=== PATIENT | female | born 1995 | race Caucasian/White ===

== ENCOUNTER 2021-03-07 22:15 | Inpatient (IN) | payer MEDICAID, SELFPAY ==
--- NOTE | 2021-03-07 22:15 | ED_ITS ---
Documented by User: Enrique Thomas MD 03/11/21 21:27 HPI - Altered Mental Status General: Chief Complaint: Altered Mental Status Stated Complaint: possible overdose Time Seen by Provider: 03/07/21 22:15 Source: patient and EMS Mode of arrival: EMS Limitations: altered mental status History of Present Illness: HPI narrative: Ms. Matos is a 25-year-old lady with unclear past medical history who presents to the emergency department due to altered mental status. Per EMS report she was found confused in a bathroom and somewhat combative. EMS gave her 5 mg Haldol and 4 mg of Zofran. Upon initial evaluation the patient is oriented x2 however provides little meaningful history. She cannot explain the current events and believes that it is still Thanksgiving. She does endorse mild abdominal pain. She has scattered abrasions and contusions which she does not explain. History is otherwise limited by patient's mental status. Review of Systems General: Reports: ROS unobtainable due to mental status [facility] ED PFSH: Social History (Updated 03/08/21 @ 06:38 by David Aldana MD) Smoking and tobacco status: unknown if ever smoked Alcohol intake: unknown Physical Exam Narrative: EXAM NARRATIVE: GENERAL/CONSTITUTIONAL -mildly ill appearing. No acute distress. Eyes - PERRL, no conjunctival injection ENMT - Atraumatic external nose and ears. Moist mucous membranes NECK - supple. trachea midline CARDIOVASCULAR - regular rate and rhythm. No active bleeding. RESPIRATORY -clear to auscultation bilaterally. ABDOMEN/GI -mild tenderness to palpation generalized, nondistended, no evidence of peritonitis. MSK - Extremities without obvious deformity or tenderness to palpation SKIN - Warm, Dry. Scattered contusions and abrasions NEURO - alert and oriented x2. No obvious focal neurologic deficits. PSYCH -impaired cognition and memory. Impaired attention. Course ED course: - Patient was seen and evaluated by me at bedside - Patient placed on cardiac monitors, IV access obtained - Initial evaluation notable for altered mental status and limited history. Patient can answer orientation question's but otherwise lacks capacity and ability to have meaningful discussion regarding clinical presentation - Labs notable for leukocytosis of unclear etiology. Metabolic panel with hypokalemia, replenishment ordered, decreased bicarb, increased anion gap. - Imaging notable for negative head CT. No lobar consolidation or evidence of pneumonia. - Patient care handed off to overnight ED physician Dr. Wright pending completion of urinalysis and screening for toxic ingestions as well as reassessment of patient's condition. Vital Signs: Vital signs: Vital Signs Temperature 98.8 F 03/11/21 14:00 Pulse Rate 108 H 03/11/21 14:00 Respiratory Rate 16 03/11/21 14:00 Blood Pressure 143/91 03/11/21 14:00 Pulse Oximetry 97 03/11/21 14:00 MDM - Altered Mental Status Medical Records: Attestation: I reviewed the patient's medical records. Lab Data: Attestation: I reviewed the patient's lab results. Labs: Lab Results 03/07/21 03/07/21 03/07/21 22:23 22:28 22:28 WBC 17.3 10^3/uL H 10 ^3/uL (4.0-10.0) RBC 5.01 10^6/uL 10^6 /uL (4.1-5.3) Hgb 15.4 g/dL H g/dL (11.5-15.3) Hct 45.7 % % (37.0-47.0) MCV 91.2 fl fl (81-99) MCH 30.7 pg pg (28.0-34.0) MCHC 33.7 g/dL g/dL (30.0-36.0) RDW 12.3 % % (12.1-15.1) Plt Count 302 10^3/cmm 10^3 /cmm (130-400) MPV 9.9 fL fL (7.4-10.4) Neut % (Auto) 79.3 % % Lymph % (Auto) 12.6 % % Nuckolls % (Auto) 7.2 % % Eos % (Auto) 0.1 % % Baso % (Auto) 0.5 % % Neut # (Auto) 13.70 10^3/uL H 1 0^3/uL (1.8-7.7) Lymph # (Auto) 2.2 10^3/uL 10^3/ uL (0.8-4.8) Nuckolls # (Auto) 1.3 10^3/uL H 10^ 3/uL (0.2-0.9) Eos # (Auto) 0.0 10^3/uL 10^3/ uL (0.0-0.8) Baso # (Auto) 0.1 10^3/uL 10^3/ uL (0.0-0.1) Nucleated RBC % (a uto) 0 % % Nucleated RBCs # 0.0 /100WBC /100W BC Specimen Type Arterial Sample Site Radial, right ABG pH 7.42 (7.35-7.45) ABG pCO2 32.8 mmHg L mmHg (35-45) ABG pO2 102.0 mmHg H mmHg (80.0-100.0) ABG HCO3 21.3 mmol/L L mmo l/L (22-26) ABG Base Excess -2.3 mmol/L L mmo l/L (-2.0-2.0) Anthony Test Pos Hematocrit 47.6 % H % (37-47) O2 Delivery Device Room air Budget And Policy Analyst ID [id number] Sodium 139 mmol/L mmol/L (136-145) Potassium 3.1 mmol/L L mmol /L (3.5-5.1) Chloride 102 mmol/L mmol/L (98-107) Carbon Dioxide 17 mmol/L L mmol/ L (22-29) Anion Gap 23.1 H (5-19) BUN 6 mg/dL mg/dL (6-20) Creatinine 0.5 mg/dL mg/dL (0.5-0.9) GFR Calculation 152.9 mL/min H mL /min (90-130) Glucose 99 mg/dL mg/dL (65-115) POC Glucose Calculated Osmolal ity 286 mOsm/kg mOsm/ kg (285-295) Calcium 9.2 mg/dL mg/dL (8.5-10.5) Magnesium Total Bilirubin 0.8 mg/dL mg/dL (0.15-1.2) AST 16 U/L U/L (0-32) ALT 13 U/L U/L (0-33) Alkaline Phosphata se 81 IU/L IU/L (35-105) Total Protein 6.7 g/dL g/dL (6.6-8.7) Albumin 4.8 g/dL g/dL (3.5-5.2) Globulin 1.9 g/dL g/dL (1.3-4.6) Lipase 9 U/L L U/L (13-60) TSH 2.64 uIU/mL uIU/m L (0.27-4.20) HCG, Qual Urine Color Urine Appearance Urine pH Ur Specific Gravit y Urine Protein Urine Glucose (UA) Urine Ketones Urine Blood Urine Nitrate Urine Bilirubin Prot Sulfosalicyli c Acd Urine Urobilinogen Ur Leukocyte Isadora ase Salicylates < 0.3 mg/dL L mg/ dL (3-10) Urine Opiates Scre en Acetaminophen < 5.0 ug/mL L ug/ mL (10-30) Ur Barbiturates Sc reen Ur Phencyclidine S crn Ur Amphetamines Sc reen U Benzodiazepines Scrn Urine Cocaine Scre en U Marijuana (THC) Screen Ethylene Glycol Ethyl Alcohol < 10 mg/dL mg/dL (0-10) 03/07/21 03/07/21 03/07/21 22:28 22:28 22:28 WBC RBC Hgb Hct MCV MCH MCHC RDW Plt Count MPV Neut % (Auto) Lymph % (Auto) Nuckolls % (Auto) Eos % (Auto) Baso % (Auto) Neut # (Auto) Lymph # (Auto) Nuckolls # (Auto) Eos # (Auto) Baso # (Auto) Nucleated RBC % (a uto) Nucleated RBCs # Specimen Type Sample Site ABG pH ABG pCO2 ABG pO2 ABG HCO3 ABG Base Excess Anthony Test Hematocrit O2 Delivery Device Budget And Policy Analyst ID Sodium Potassium Chloride Carbon Dioxide Anion Gap BUN Creatinine GFR Calculation Glucose POC Glucose Calculated Osmolal ity Calcium Magnesium 1.9 mg/dL mg/dL (1.7-2.3) Total Bilirubin AST ALT Alkaline Phosphata se Total Protein Albumin Globulin Lipase TSH HCG, Qual Negative (Negative) Urine Color Urine Appearance Urine pH Ur Specific Gravit y Urine Protein Urine Glucose (UA) Urine Ketones Urine Blood Urine Nitrate Urine Bilirubin Prot Sulfosalicyli c Acd Urine Urobilinogen Ur Leukocyte Isadora ase Salicylates Urine Opiates Scre en Acetaminophen Ur Barbiturates Sc reen Ur Phencyclidine S crn Ur Amphetamines Sc reen U Benzodiazepines Scrn Urine Cocaine Scre en U Marijuana (THC) Screen Ethylene Glycol <10.0 mg/L mg/L () Ethyl Alcohol 03/07/21 03/07/21 03/07/21 23:46 23:46 23:55 WBC RBC Hgb Hct MCV MCH MCHC RDW Plt Count MPV Neut % (Auto) Lymph % (Auto) Nuckolls % (Auto) Eos % (Auto) Baso % (Auto) Neut # (Auto) Lymph # (Auto) Nuckolls # (Auto) Eos # (Auto) Baso # (Auto) Nucleated RBC % (a uto) Nucleated RBCs # Specimen Type Sample Site ABG pH ABG pCO2 ABG pO2 ABG HCO3 ABG Base Excess Anthony Test Hematocrit O2 Delivery Device Budget And Policy Analyst ID Sodium Potassium Chloride Carbon Dioxide Anion Gap BUN Creatinine GFR Calculation Glucose POC Glucose 76 mg/dL mg/dL (70-110) Calculated Osmolal ity Calcium Magnesium Total Bilirubin AST ALT Alkaline Phosphata se Total Protein Albumin Globulin Lipase TSH HCG, Qual Urine Color Cancelled Urine Appearance Cancelled Urine pH Cancelled Ur Specific Gravit y Cancelled Urine Protein Cancelled Urine Glucose (UA) Cancelled Urine Ketones Cancelled Urine Blood Cancelled Urine Nitrate Cancelled Urine Bilirubin Cancelled Prot Sulfosalicyli c Acd Cancelled Urine Urobilinogen Cancelled Ur Leukocyte Isadora ase Cancelled Salicylates Urine Opiates Scre en Negative ng/mL ng /mL (Negative) Acetaminophen Ur Barbiturates Sc reen Negative ng/mL ng /mL (Negative) Ur Phencyclidine S crn Negative ng/mL ng /mL (Negative) Ur Amphetamines Sc reen Negative ng/mL ng /mL (Negative) U Benzodiazepines Scrn Negative ng/mL ng /mL (Negative) Urine Cocaine Scre en Negative ng/mL ng /mL (Negative) U Marijuana (THC) Screen Positive ng/mL H ng/mL (Negative) Ethylene Glycol Ethyl Alcohol EKG Data^: EKG 1: Attestation: I personally reviewed and interpreted this EKG as follows: EKG interpretation date: 03/07/21 EKG interpretation time: 22:57 Interpretation: Twelve-lead EKG shows a regular rhythm at a rate of 74. TN interval 118, QRS duration 89, QTc 426. Normal axis. Interpretation: Sinus rhythm. Short TN interval. Discharge Plan Discharge Patient Disposition: Admitted As Inpatient Admit Provider: David Aldana Clinical Impression: Acute psychosis Altered mental status Qualifiers: Altered mental status type: delirium Qualified Code(s): R41.0 - Disorientation, unspecified Condition: Fair Coding Level of Care Code ED Furniture Restorer for Chg Fwd Documented by User: Jonas Wright, DO 03/08/21 03:56 HPI - Altered Mental Status General: Chief Complaint: Altered Mental Status Stated Complaint: possible overdose Time Seen by Provider: 03/07/21 22:15 PFSH ED PFSH: Social History (Updated 03/08/21 @ 06:38 by David Aldana MD) Smoking and tobacco status: unknown if ever smoked Alcohol intake: unknown Course Consultations: Consultation #1: Katya Time: 03:05 Vital Signs: Vital signs: Vital Signs Temperature 98.8 F 03/11/21 14:00 Pulse Rate 108 H 03/11/21 14:00 Respiratory Rate 16 03/11/21 14:00 Blood Pressure 143/91 03/11/21 14:00 Pulse Oximetry 97 03/11/21 14:00 MDM - Altered Mental Status MDM Narrative: Medical decision making narrative: 25-year-old female checked out to me by the previous physician at shift change. This young lady may or may not have ingested a substance. She has mental status changes, which is rather obvious. I have examined this lady as well. She is sleepy, but arouses to voice. She answers some questions appropriately, but not others. For example she knows she is in the hospital, and what town she is in, but answers the word blue when asked what day it is. When asked if this has ever happened to her before, she states yes, a month or? . I do not believe this lady has attempted suicide in any way, and she denies suicidal ideation, but I do feel that she is medically unstable to go home at this point. She has been given a fluid bolus, potassium repleted for a potassium of 3.1. Her white blood cell count is 17.3, but without significant left shift. Her head CT is normal. Chest x-ray is normal. She is currently afebrile. She does not show any meningeal signs whatsoever. Spoke with hospitalist, who agrees to come see the patient in the emergency room. She is observed to be actively hallucinating in the room interacting with individuals who are not present. She is exhibiting signs of acute psychosis. She is given IV haloperidol for this. As she is currently medically/psychiatrically unstable to go home, and care for herself, she will be placed under 96-hour hold. Lab Data: Labs: Lab Results 03/07/21 03/07/21 03/07/21 22:23 22:28 22:28 WBC 17.3 10^3/uL H 10 ^3/uL (4.0-10.0) RBC 5.01 10^6/uL 10^6 /uL (4.1-5.3) Hgb 15.4 g/dL H g/dL (11.5-15.3) Hct 45.7 % % (37.0-47.0) MCV 91.2 fl fl (81-99) MCH 30.7 pg pg (28.0-34.0) MCHC 33.7 g/dL g/dL (30.0-36.0) RDW 12.3 % % (12.1-15.1) Plt Count 302 10^3/cmm 10^3 /cmm (130-400) MPV 9.9 fL fL (7.4-10.4) Neut % (Auto) 79.3 % % Lymph % (Auto) 12.6 % % Nuckolls % (Auto) 7.2 % % Eos % (Auto) 0.1 % % Baso % (Auto) 0.5 % % Neut # (Auto) 13.70 10^3/uL H 1 0^3/uL (1.8-7.7) Lymph # (Auto) 2.2 10^3/uL 10^3/ uL (0.8-4.8) Nuckolls # (Auto) 1.3 10^3/uL H 10^ 3/uL (0.2-0.9) Eos # (Auto) 0.0 10^3/uL 10^3/ uL (0.0-0.8) Baso # (Auto) 0.1 10^3/uL 10^3/ uL (0.0-0.1) Nucleated RBC % (a uto) 0 % % Nucleated RBCs # 0.0 /100WBC /100W BC Specimen Type Arterial Sample Site Radial, right ABG pH 7.42 (7.35-7.45) ABG pCO2 32.8 mmHg L mmHg (35-45) ABG pO2 102.0 mmHg H mmHg (80.0-100.0) ABG HCO3 21.3 mmol/L L mmo l/L (22-26) ABG Base Excess -2.3 mmol/L L mmo l/L (-2.0-2.0) Anthony Test Pos Hematocrit 47.6 % H % (37-47) O2 Delivery Device Room air Budget And Policy Analyst ID [id number] Sodium 139 mmol/L mmol/L (136-145) Potassium 3.1 mmol/L L mmol /L (3.5-5.1) Chloride 102 mmol/L mmol/L (98-107) Carbon Dioxide 17 mmol/L L mmol/ L (22-29) Anion Gap 23.1 H (5-19) BUN 6 mg/dL mg/dL (6-20) Creatinine 0.5 mg/dL mg/dL (0.5-0.9) GFR Calculation 152.9 mL/min H mL /min (90-130) Glucose 99 mg/dL mg/dL (65-115) POC Glucose Calculated Osmolal ity 286 mOsm/kg mOsm/ kg (285-295) Calcium 9.2 mg/dL mg/dL (8.5-10.5) Magnesium Total Bilirubin 0.8 mg/dL mg/dL (0.15-1.2) AST 16 U/L U/L (0-32) ALT 13 U/L U/L (0-33) Alkaline Phosphata se 81 IU/L IU/L (35-105) Total Protein 6.7 g/dL g/dL (6.6-8.7) Albumin 4.8 g/dL g/dL (3.5-5.2) Globulin 1.9 g/dL g/dL (1.3-4.6) Lipase 9 U/L L U/L (13-60) TSH 2.64 uIU/mL uIU/m L (0.27-4.20) HCG, Qual Urine Color Urine Appearance Urine pH Ur Specific Gravit y Urine Protein Urine Glucose (UA) Urine Ketones Urine Blood Urine Nitrate Urine Bilirubin Prot Sulfosalicyli c Acd Urine Urobilinogen Ur Leukocyte Isadora ase Salicylates < 0.3 mg/dL L mg/ dL (3-10) Urine Opiates Scre en Acetaminophen < 5.0 ug/mL L ug/ mL (10-30) Ur Barbiturates Sc reen Ur Phencyclidine S crn Ur Amphetamines Sc reen U Benzodiazepines Scrn Urine Cocaine Scre en U Marijuana (THC) Screen Ethylene Glycol Ethyl Alcohol < 10 mg/dL mg/dL (0-10) 03/07/21 03/07/21 03/07/21 22:28 22:28 22:28 WBC RBC Hgb Hct MCV MCH MCHC RDW Plt Count MPV Neut % (Auto) Lymph % (Auto) Nuckolls % (Auto) Eos % (Auto) Baso % (Auto) Neut # (Auto) Lymph # (Auto) Nuckolls # (Auto) Eos # (Auto) Baso # (Auto) Nucleated RBC % (a uto) Nucleated RBCs # Specimen Type Sample Site ABG pH ABG pCO2 ABG pO2 ABG HCO3 ABG Base Excess Anthony Test Hematocrit O2 Delivery Device Budget And Policy Analyst ID Sodium Potassium Chloride Carbon Dioxide Anion Gap BUN Creatinine GFR Calculation Glucose POC Glucose Calculated Osmolal ity Calcium Magnesium 1.9 mg/dL mg/dL (1.7-2.3) Total Bilirubin AST ALT Alkaline Phosphata se Total Protein Albumin Globulin Lipase TSH HCG, Qual Negative (Negative) Urine Color Urine Appearance Urine pH Ur Specific Gravit y Urine Protein Urine Glucose (UA) Urine Ketones Urine Blood Urine Nitrate Urine Bilirubin Prot Sulfosalicyli c Acd Urine Urobilinogen Ur Leukocyte Isadora ase Salicylates Urine Opiates Scre en Acetaminophen Ur Barbiturates Sc reen Ur Phencyclidine S crn Ur Amphetamines Sc reen U Benzodiazepines Scrn Urine Cocaine Scre en U Marijuana (THC) Screen Ethylene Glycol <10.0 mg/L mg/L () Ethyl Alcohol 03/07/21 03/07/21 03/07/21 23:46 23:46 23:55 WBC RBC Hgb Hct MCV MCH MCHC RDW Plt Count MPV Neut % (Auto) Lymph % (Auto) Nuckolls % (Auto) Eos % (Auto) Baso % (Auto) Neut # (Auto) Lymph # (Auto) Nuckolls # (Auto) Eos # (Auto) Baso # (Auto) Nucleated RBC % (a uto) Nucleated RBCs # Specimen Type Sample Site ABG pH ABG pCO2 ABG pO2 ABG HCO3 ABG Base Excess Anthony Test Hematocrit O2 Delivery Device Budget And Policy Analyst ID Sodium Potassium Chloride Carbon Dioxide Anion Gap BUN Creatinine GFR Calculation Glucose POC Glucose 76 mg/dL mg/dL (70-110) Calculated Osmolal ity Calcium Magnesium Total Bilirubin AST ALT Alkaline Phosphata se Total Protein Albumin Globulin Lipase TSH HCG, Qual Urine Color Cancelled Urine Appearance Cancelled Urine pH Cancelled Ur Specific Gravit y Cancelled Urine Protein Cancelled Urine Glucose (UA) Cancelled Urine Ketones Cancelled Urine Blood Cancelled Urine Nitrate Cancelled Urine Bilirubin Cancelled Prot Sulfosalicyli c Acd Cancelled Urine Urobilinogen Cancelled Ur Leukocyte Isadora ase Cancelled Salicylates Urine Opiates Scre en Negative ng/mL ng /mL (Negative) Acetaminophen Ur Barbiturates Sc reen Negative ng/mL ng /mL (Negative) Ur Phencyclidine S crn Negative ng/mL ng /mL (Negative) Ur Amphetamines Sc reen Negative ng/mL ng /mL (Negative) U Benzodiazepines Scrn Negative ng/mL ng /mL (Negative) Urine Cocaine Scre en Negative ng/mL ng /mL (Negative) U Marijuana (THC) Screen Positive ng/mL H ng/mL (Negative) Ethylene Glycol Ethyl Alcohol Discharge Plan Discharge Patient Disposition: Admitted As Inpatient Admit Provider: David Aldana Clinical Impression: Acute psychosis Altered mental status Qualifiers: Altered mental status type: delirium Qualified Code(s): R41.0 - Disorientation, unspecified Condition: Fair Coding Level of Care Code ED Furniture Restorer for Jamel Wilson
[2021-03-07 22:18] VITALS: BP 112/73; PULSE 88; RESP 18; TEMP 37.2; O2SAT 97; BMI 34.9
--- NOTE | 2021-03-07 22:21 | XRR_ITS ---
PROCEDURE INFORMATION: Exam: XR Chest Exam date and time: 03/07/2021 10:21 PM Age: 25 years old Clinical indication: Other: AMS TECHNIQUE: Imaging protocol: XR of the chest. Views: 1 view. COMPARISON: No relevant prior studies available. FINDINGS: Lungs: Unremarkable. No consolidation. Pleural spaces: Unremarkable. No pleural effusion. No pneumothorax. Heart/Mediastinum: Unremarkable. No cardiomegaly. Bones/joints: Unremarkable. XR/XR chest 1V portable [id number] IMPRESSION: No acute findings. Radiation Dose CTDIVOL = (mGy): DLP = (mGy-cm)
--- NOTE | 2021-03-07 22:21 | ECG_ITS ---
[facility] Test Date: 2021-03-07 Pat Name: Cathy Liu Department: Room: Gender: Female Corn Press Operator: : 1995 Requested By: Enrique Thomas Order Number: [id number] Thom MD: LUCINA CAMPBELL Measurements Intervals Lott Rate: 74 P: 64 SD: 118 QRS: 73 QRSD: 89 T: 49 QT: 399 QTc: 444 Interpretive Statements SINUS RHYTHM WITH MARKED SINUS ARRHYTHMIA WITH SHORT SD INTERVAL No previous ECG available for comparison Electronically Signed On 03-10-2021 13:01:53 CHIEF MARKETING OFFICER by LUCINA CAMPBELL [id number]
--- NOTE | 2021-03-07 22:21 | CTR_ITS ---
PROCEDURE INFORMATION: Exam: CT Head Without Contrast Exam date and time: 03/07/2021 10:21 PM Age: 25 years old Clinical indication: Altered mental status/memory loss; Additional info: AMS TECHNIQUE: Imaging protocol: Computed tomography of the head without contrast. Radiation optimization: All CT scans at this facility use at least one of these dose optimization techniques: automated exposure control; mA and/or kV adjustment per patient size (includes targeted exams where dose is matched to clinical indication); or iterative reconstruction. COMPARISON: No relevant prior studies available. RADIATION DOSE METRICS: Total DLP (mGy-cm): 872.99 FINDINGS: Brain: Normal. No hemorrhage. Unremarkable white matter. No mass effect. Cerebral ventricles: No ventriculomegaly. Paranasal sinuses: Visualized sinuses are unremarkable. No fluid levels. Mastoid air cells: Visualized mastoid air cells are well aerated. Bones/joints: Unremarkable. No acute fracture. Soft tissues: Unremarkable. CT/CT head wo con* [id number] IMPRESSION: No acute intracranial abnormality. Radiation Dose CTDIVOL = (mGy): DLP = 872.99 (mGy-cm)
[2021-03-07] MEDS: sodium chloride 0.9% 1,000 ML 999 ML IV (22:27)
[2021-03-07 22:46] LABS: Basophils # 0.1 10^3/uL (0.0-0.1); Basophils % 0.5 %; Eosinophils % 0.1 %; Hematocrit 45.7 % (37.0-47.0); Hemoglobin 15.4 g/dL (11.5-15.3); Lymphocytes # 2.2 10^3/uL (0.8-4.8); Lymphocytes % 12.6 %; Mean Corpuscular HGB Conc 33.7 g/dL (30.0-36.0); Mean Corpuscular Hemoglobin 30.7 pg (28.0-34.0); Mean Corpuscular Volume 91.2 fl (81-99); Mean Platelet Volume 9.9 fL (7.4-10.4); Monocytes # 1.3 10^3/uL (0.2-0.9); Monocytes % 7.2 %; Neutrophils % 79.3 %; Nucleated Red Blood Cells % 0 %; Platelet Count 302 10^3/cmm (130-400); Red Blood Count 5.01 10^6/uL (4.1-5.3); Red Cell Distribution Width 12.3 % (12.1-15.1); White Blood Count 17.3 10^3/uL (4.0-10.0)
[2021-03-07 22:48] LABS: ABG PCO2 32.8 mmHg (35-45); ABG PH Result 7.42 (7.35-7.45); Arterial Blood Gas Hematocrit 47.6 % (37-47); Base Excess ABG -2.3 mmol/L (-2.0-2.0); Blood Gas Allen Test Pos; Blood Gas Sample Site Radial, right; Blood Gas Sample Type Arterial; HCO3 ABG 21.3 mmol/L (22-26); Oxygen Device ROOM AIR
[2021-03-07 22:53] LABS: HCG, Serum Qual Negative (Negative)
[2021-03-07 23:11] LABS: Alanine Aminotransferase 13 U/L (0-33); Albumin Level 4.8 g/dL (3.5-5.2); Alkaline Phosphatase 81 IU/L (35-105); Anion Gap 23.1 (5-19); Aspartate Amino Transferase 16 U/L (0-32); Blood Urea Nitrogen 6 mg/dL (6-20); Calcium 9.2 mg/dL (8.5-10.5); Carbon Dioxide 17 mmol/L (22-29); Chloride 102 mmol/L (98-107); Globulin 1.9 g/dL (1.3-4.6); Glomerular Filtration Rate 152.9 mL/min (90-130); Glucose 99 mg/dL (65-115); Lipase 9 U/L (13-60); Osmolality Calculated 286 mOsm/kg (285-295); Potassium 3.1 mmol/L (3.5-5.1); Sodium 139 mmol/L (136-145); Thyroid Stimulating Hormone 2.64 uIU/mL (0.27-4.20); Total Bilirubin 0.8 mg/dL (0.15-1.2); Total Protein 6.7 g/dL (6.6-8.7)
[2021-03-07 23:12] LABS: Acetaminophen < 5.0 ug/mL (10-30); Alcohol Level < 10 mg/dL (0-10); Salicylate < 0.3 mg/dL (3-10)
[2021-03-07] MEDS: magnesium sulfate premix 2 GM/50 ML PIGGYBACK IV (23:38)
[2021-03-07 23:48] LABS: Magnesium 1.9 mg/dL (1.7-2.3)
[2021-03-07 23:58] LABS: Glucose Point of Care 76 mg/dL (70-110)
[2021-03-08] VITALS (107 sets, daily range): BP systolic 83–168; BP diastolic 58–110; PULSE 70–148; RESP 13–31; TEMP 36.8–37.1; O2SAT 94–100
[2021-03-08 00:09] LABS: Amphetamines Screen Urine Negative (Negative); Barbiturates Screen Urine Negative (Negative); Benzodiazepines Screen Urine Negative (Negative); Cocaine Screen Urine Negative (Negative); Opiate Screen Urine Negative (Negative); PCP Screen Urine Negative (Negative); THC Screen Urine Positive (Negative)
[2021-03-08] MEDS: sodium chloride 0.9% 1,000 ML 999 ML IV (00:28)
--- NOTE | 2021-03-08 00:41 | PC.NURSE ---
Pt. states that she wants to go home. Pt is resting in bed getting IV fluids at this time. Pt. states that she will stay long enough to finish her IV fluids.
[2021-03-08] MEDS: potassium chloride ER 20 mEq Tablet 40 MEQ PO (00:56)
--- NOTE | 2021-03-08 01:45 | PC.NURSE ---
Pt. resting in bed , pt. does not act appropriate to questions or commands. Pt. knows day/time and location.
[2021-03-08] MEDS: haloperidol inj 5 mg/mL INJ 1 mL 3 MG IVP (03:59)
--- NOTE | 2021-03-08 04:52 | PM.HP ---
Providers/Chief Complaint Admitting Physician: David Aldana Primary Care Provider: Ro Epps DO Chief Complaint: possible overdose History of Present Illness 25-year-old female with a known past medical history was brought to the emergency room after she was found to have altered mental status.EMS was called and patient was found to be very combative. Apparently she had been lying next to multiple bottles of cleaning solution. Unclear if patient had injested any. Patient was very confused at the time of my evaluation not able to provide any history. No family at bedside however per nursing staff discussion with boyfriend apparently patient had been abusing meth recently and did not verbalize any suicidal ideations. Laboratory workup arrival showed a WBC of 17.3, hemoglobin 15.4, hematocrit of 45.7 and platelet count of 302. Arterial blood gases showed a pH of 7.42, pCO2 of 32.8, PO2 of 102 and a bicarb of 21.3. Sodium 139, potassium 3.1, chloride 102, bicarb 17, BUN 6 and creatinine of 0.5. LFTs within normal limits. TSH 2.64. Beta hCG negative. Toxicology use showed salicylates and acetaminophen levels to be negative. Etoh was also negative. THC however was positive. Head CT and chest X-ray were negative. Ethylene glycol ordered and pending. In ER patient was noted to have psychotic behavior. She was given Haldol 3 mg IV x 1. Also given magnesium 2g IV x1 and KCL replacement. Review of Systems General: Reports: ROS unobtainable due to medical condition Medications/Allergies Allergies Allergy/AdvReac Type Severity Reaction Status Date / Time No Known Allergies Allergy Verified 03/07/21 22:18 PFSH Acute PFSH: Social History (Updated 03/08/21 @ 06:38 by David Aldana MD) Smoking and tobacco status: unknown if ever smoked Alcohol intake: unknown Substance/Drug Use: current Substance/Drug use type: Marijuana and Methamphetamine Vitals/I&O/Wt Last Vital Signs Temp 98.9 F 03/07/21 22:18 Pulse 87 03/08/21 01:29 Resp 16 03/08/21 01:29 BP 122/75 03/08/21 04:10 Pulse Ox 95 03/08/21 04:10 03/07/21 03/07/21 03/08/21 14:59 22:59 06:59 Intake Total 2049 Balance 2049 Weight last 48 hrs Weight 83.915 kg Physical Exam Narrative: EXAM NARRATIVE: General: Confused, agitated HEENT: Grossly unremarkable CVS: RRR Chest : CTABL Abd: Soft, NT,ND Ext; no edema Skin: superficial abrasions Psych: Confused psychotic Data : 03/07/21 22:28 03/07/21 22:28 A&P Assessment and plan (1) Acute psychosis: Status: Acute (2) Hypokalemia: Status: Acute (3) Cannabis abuse: Status: Acute Additional A&P Information Acute Psychosis Etiology unclear No reported suicidal ideation UDS - THC + Haldol 3 mg IV x 1 in Er Zyprexa / Ativan PRN ordered Psychiatry consult in AM NPO until able to follow commands NS at 75 cc/hr Leukocytosis No clear evidence of infection Possibly reactive Repeat CBC in am Hypokalemia KCL replacement in ER Repeat BMP in AM S/p Mag sulfate 2g IV x 1 DVT ppx Low Risk Attestations Medical Necessity Statement*: Anticipate over 2 midnights stay in hospital for evaluation and treatment Time Spent in Patient Care: Greater than 35 minutes (>than 50% of time spent in counselling and/or direct pt care on unit). Coding Level of Care Code Acute Power Shovel Operator for Jamel Wilson Diagnoses Acute psychosis F23 Hypokalemia E87.6 Cannabis abuse F12.10
[2021-03-08] MEDS: sodium chloride 0.9% 1,000 ML 75 ML IV ×2 (05:18→18:25)
[2021-03-08] MEDS: ondansetron 2 mg/ML SDV 2 mL 4 MG IVP ×2 (05:19→10:41)
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
[2021-03-08] MEDS: acetaminophen 325 mg Tablet 650 MG PO (10:41)
[2021-03-08 10:50] LABS: Basophils % 0.4 %; Eosinophils % 0.2 %; Hematocrit 42.3 % (37.0-47.0); Lymphocytes # 1.9 10^3/uL (0.8-4.8); Lymphocytes % 17.9 %; Mean Corpuscular HGB Conc 33.1 g/dL (30.0-36.0); Mean Corpuscular Hemoglobin 30.6 pg (28.0-34.0); Mean Corpuscular Volume 92.4 fl (81-99); Mean Platelet Volume 9.7 fL (7.4-10.4); Monocytes # 0.9 10^3/uL (0.2-0.9); Monocytes % 8.4 %; Neutrophils # 7.67 10^3/uL (1.8-7.7); Neutrophils % 72.8 %; Nucleated Red Blood Cells % 0 %; Platelet Count 262 10^3/cmm (130-400); Red Blood Count 4.58 10^6/uL (4.1-5.3); Red Cell Distribution Width 12.6 % (12.1-15.1); White Blood Count 10.5 10^3/uL (4.0-10.0)
[2021-03-08 11:28] LABS: Alanine Aminotransferase 12 U/L (0-33); Alkaline Phosphatase 76 IU/L (35-105); Aspartate Amino Transferase 18 U/L (0-32); Blood Urea Nitrogen 3 mg/dL (6-20); Calcium 8.5 mg/dL (8.5-10.5); Carbon Dioxide 23 mmol/L (22-29); Chloride 106 mmol/L (98-107); Globulin 2.4 g/dL (1.3-4.6); Glomerular Filtration Rate 197.8 mL/min (90-130); Glucose 97 mg/dL (65-115); Osmolality Calculated 284 mOsm/kg (285-295); Sodium 139 mmol/L (136-145); Total Protein 6.4 g/dL (6.6-8.7)
[2021-03-08 11:37] LABS: Anion Gap 13.4 (5-19); Potassium 3.4 mmol/L (3.5-5.1)
[2021-03-08] MEDS: LORazepam 2 mg/mL INJ 1 mL 0.5 MG IVP (11:57)
[2021-03-08] MEDS: nicotine 21 mg Patch 1 PATCH TRANSDERMA (18:24)
[2021-03-08 18:53] LABS: Add Urine Microscopic? YES; Bilirubin Urine Neg (Negative); Blood Urine 3+ (Negative); Glucose Urine UA Norm (Normal); Ketones Urine Negative (Negative); Leukocyte Esterase Urine Negative (Negative); Nitrate Urine Negative (Negative); Protein Urine Neg (Negative); Specific Gravity, Urine 1.005 (1.005-1.030); Urine Appearance Clear (CLEAR); Urine Color Yellow (Yellow); Urobilinogen Urine Norm (Negative); pH Urine 7 (5-7)
[2021-03-08 18:54] LABS: Add Urine Culture? Yes; Bacteria Urine TRACE /hpf; Squamous Epithelial Cell Urine 0-4 /hpf (0-5); WBC Urine 0-4 /hpf (0-5)
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
[2021-03-09] VITALS (64 sets, daily range): BP systolic 128–169; BP diastolic 85–116; PULSE 75–141; RESP 12–34; TEMP 36.6–37.1; O2SAT 93–99; BMI 34.0; BMI 34.1
[2021-03-09] MEDS: acetaminophen 325 mg Tablet 650 MG PO (00:42)
[2021-03-09 06:50] LABS: Basophils # 0.1 10^3/uL (0.0-0.1); Basophils % 0.6 %; Eosinophils # 0.1 10^3/uL (0.0-0.8); Eosinophils % 0.6 %; Hemoglobin 15.8 g/dL (11.5-15.3); Lymphocytes # 2.3 10^3/uL (0.8-4.8); Lymphocytes % 25.5 %; Mean Corpuscular HGB Conc 33.6 g/dL (30.0-36.0); Mean Corpuscular Hemoglobin 31.1 pg (28.0-34.0); Mean Corpuscular Volume 92.5 fl (81-99); Mean Platelet Volume 9.8 fL (7.4-10.4); Monocytes # 0.7 10^3/uL (0.2-0.9); Monocytes % 7.9 %; Neutrophils # 5.72 10^3/uL (1.8-7.7); Neutrophils % 64.9 %; Nucleated Red Blood Cells % 0 %; Platelet Count 281 10^3/cmm (130-400); Red Blood Count 5.08 10^6/uL (4.1-5.3); Red Cell Distribution Width 12.3 % (12.1-15.1); White Blood Count 8.8 10^3/uL (4.0-10.0)
--- NOTE | 2021-03-09 07:06 | PC.NURSE ---
Shift Note Frequent safety and comfort rounds continue. Orders and/or nursing care completed as indicated. Patient monitored for response to intervention and treatment(s). Education provided includes IV fluids and treatment plan. Patient needs further reinforcement teaching. Patient remains alert to self and place, but is confused to time/situation. Patient noted to ramble intermittently throughout the night and had intermittent episodes of crying. She had one report of pain all evening in the knee, PRN Tylenol was administered. Patient had 3400 mls of pink tinged urine with small blood clots out overnight. Please see previous note about SANE measures taken. Will continue to monitor.
[2021-03-09 07:24] LABS: Anion Gap 17.8 (5-19); Blood Urea Nitrogen 2 mg/dL (6-20); Calcium 9.1 mg/dL (8.5-10.5); Carbon Dioxide 21 mmol/L (22-29); Chloride 105 mmol/L (98-107); Glomerular Filtration Rate 197.8 mL/min (90-130); Glucose 80 mg/dL (65-115); Osmolality Calculated 285 mOsm/kg (285-295); Potassium 3.8 mmol/L (3.5-5.1); Sodium 140 mmol/L (136-145)
--- NOTE | 2021-03-09 08:09 | PC.NURSE ---
Patient oriented to self, time, place, and situation. Patient mumbles and states, I get anxiety and feel that I can not breath because of my first, middle, and last name. Patient stated that she feels anxiety because of the letter B. Nurse erased charge nurses' and nurse managers' names of the patient's white board.
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
--- NOTE | 2021-03-09 11:42 | PC.NURSE ---
Patient wrote Mussin, Fussin, Crying and Dirty-talkin on the board. The patient wrote numbers on the board. Patient then stated that she feels scared of the numbers she wrote on the board. The patient then erased the number and stated that she does not feel scared anymore.
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
--- NOTE | 2021-03-09 12:48 | PC.NURSE ---
Patient states that she is on her period. Patients urine is pink in color. Patient has small blood clots in urine. Patient voids almost every hour.
--- NOTE | 2021-03-09 15:12 | PC.NURSE ---
Patient is asleep since 1314.
--- NOTE | 2021-03-09 16:28 | PC.NURSE ---
Transfer Note Patient transferred to NPU 131-1 from ICU 3 via wheelchair with security present. Report called to Darby at 1411. Patient oriented to environment and equipment. Unable to update family, because the only contact in chart is the E.R.,E.R.. IV line removed. The patient was asleep since 1330 up to nurse waking patient up for transfer. Patient belongings given to NPU nurse. Patient had shirt, socks, and an [facility] mug with her.
[2021-03-09] MEDS: hyDROXYzine 25 mg Capsule 50 MG PO (19:40)
[2021-03-09] MEDS: OLANZapine 5 mg ODT PO (20:05)
[2021-03-09 20:17] LABS: Hepatitis A Antibody IgM Non-Reactive (Nonreactive); Hepatitis B Core IgM Non-Reactive (Nonreactive); Hepatitis B Surface Antigen Non-Reactive (Nonreactive); Hepatitis C Virus Antibody Non-Reactive (Nonreactive)
[2021-03-09 20:19] LABS: HIV 1 & 2 Antibody Non-Reactive (Non-Reactiv); HIV 1 & 2 Antigen Non-Reactive (Non-Reactiv)
[2021-03-09] MEDS: trazodone 50 mg Tablet PO (22:20)
--- NOTE | 2021-03-10 01:42 | PC.NURSE ---
Patient is pacing on the milieu. She is disoriented to name at times, then date and location at others. Patient reports anxiety and responds in the positive to PRN offer. Patient later informs hand sign writer, I can't breath when I don't have my left sock. Patient uses non-sensical sentences/phrases. During reality orientation assessment patient responds to the wrong first name. When asked for her full name she verbalizes correct first name and incorrect last name. Patient first states she is located in [facility], then verbalizes [place], immediately after. She is aware of month and year. She is not able to recall current president and does not recognize his name when informed of the correct answer to the question Who is the current president. Patient's initial vital signs for second shift assessment were elevated (see chart). Vitals were taken while client was standing at nurses station and shivering because she was cold. Upon allowing patient to retrieve her blanket and sit in a chair for several minutes, her vital signs were re-measured. Heart rate and blood pressure measurements decreased, though still higher than ideal.
[2021-03-10 06:00] VITALS: BP 144/88; PULSE 96; RESP 17; TEMP 36.9; O2SAT 98; BMI 34.1
[2021-03-10 08:00] VITALS: BP 144/88; PULSE 96; RESP 17; TEMP 36.9
[2021-03-10] MEDS: nicotine 21 mg Patch 1 PATCH TRANSDERMA ×2 (09:23→09:27)
[2021-03-10] MEDS: hyDROXYzine 25 mg Capsule 50 MG PO ×2 (09:23→20:07)
[2021-03-10] MEDS: OLANZapine 5 mg ODT PO (10:25)
[2021-03-10] MEDS: nicotine 2 mg Gum BUCCAL ×2 (12:37→20:07)
--- NOTE | 2021-03-10 13:15 | P.NPUPN_ITS ---
Subjective NPU Subjective: Interval history: She is much better today. She received Vistaril and trazodone and slept fairly well last night. She told me that in general she sleeps well and does not need to take things to help her sleep. She still does not make much sense when she talks. She says that she has a lot of anxiety. She does go shopping and works at [employer]. She says she is always anxious when she is at [employer]. She says that she was admitted to [facility]. The first time was diagnosis of psychosis and her mother says the second time was bipolar with depression. She told me again today that her outpatient psychiatrist had her on 7 or 8 medications. She said that the psychiatrist took her off of the antianxiety medication and she said that if she was going to stop giving her that then she would stop taking everything. She forgets what medication she took. She forgets what the antianxiety medication was. She says that her mother is a psychologist. I ask if I could call her mother and she said she did not want me to. She said that she is scared to of her mother. She showed me an exercise that her mother told her to deal with anxiety. She stretched her arms up and stood on her tiptoes. Then she said when I stand on my tiptoes I feel like I have walked 10,000 miles in someone else's shoes . She did remember that she took Zoloft in the past and would like to start back on that. She also agreed to take some Abilify. Mental Status Exam MSE Comments: This is an overweight 25-year-old who appears about her stated age in no acute distress. She is dressed in hospital scrubs and has a face mask on. psychomotor activity normal. Her gait is very slow and shuffling. Speech is very soft with regular rate and rhythm, normal volume, good articulat ion, not pressured. Alert, oriented X3 Attention and concentration she seems to be aware of her surroundings. Memory is appears to be impaired Mood is anxious. Affect is dysphoric and anxious. Thought process is logical and goal-directed. Thought content: Denies auditory and visual hallucinations. No delusions or paranoia are noted. No current suicidal ideation, and no homicidal ideation. Fund of knowledge is difficult to discern. Insight and judgment appear to be impaired. Impulse control is impaired. Vitals/I&O/Wt Last Vital Signs Temp 98.4 F 03/10/21 08:00 Pulse 96 03/10/21 08:00 Resp 17 03/10/21 08:00 BP 144/88 03/10/21 08:00 Pulse Ox 98 03/10/21 06:00 03/09/21 03/10/21 03/10/21 22:59 06:59 14:59 Intake Total 1000 / 3354 Output Total 300 / 2375 Balance 700 / 979 Weight last 48 hrs Weight 81.919 kg Weight 81.919 kg Weight 81.845 kg Data NPU : 03/09/21 06:11 03/09/21 06:11 Micro: Microbiology 03/08/21 17:55 Urine Culture - Final Urine,Clean Catch Microbiology 03/08/21 17:55 Urine,Clean Catch Urine Culture - Final A&P Assessment and plan (1) Acute psychosis: Status: Acute (2) Altered mental status: Status: Acute Qualifiers: Altered mental status type: delirium Qualified Code(s): R41.0 - Disorientation, unspecified (3) Cannabis abuse: Status: Acute Additional A&P Information This is a 25-year-old female who appears to have had an acute psychotic episode or delirium. We do not have that information about her past history. She says that anxiety is her biggest problem. She might have had a past diagnosis for psychosis and bipolar disorder. Plan: 1. Continue we will start Zoloft 50 mg and Abilify 5 mg and increase as tolerated. Continue as needed medications. 2. Continue every 15 minute checks for safety. 3. Encourage individual, group and milieu therapies. 4. Encourage sober living treatment after discharge at the highest level of care to which she is willing to commit. 5. We will monitor for safety for herself in the community prior to discharge. Involuntary Hold Information 96 Hour Hold: 96 Hour Involuntary Admission: Yes 96 Hour Hold Ending Date: 03/14/21 96 Hour Hold Ending Time: 00:01 Attestations NPU Medical Necessity Statement*: Inpatient hospitalization is medically necessary and the clinically appropriate intervention at this time. We will initiate medications and make changes as indicated. Coding Level of Care Code Acute Service Car Driver for Jamel Wilson Diagnoses Acute psychosis F23 Altered mental status R41.0 Altered mental status type: delirium Cannabis abuse F12.10
[2021-03-10 14:00] VITALS: BP 100/72; PULSE 119; RESP 19; TEMP 36.8; O2SAT 96
--- NOTE | 2021-03-10 14:03 | NPU.GN ---
[facility] Unit Group Topic:Group Topic:Coping Mechanisms General Mood of Group: Cathy did attend group and participated some. She is timid and she is often talking about stuff that does not make sense. She had good hygiene.
[2021-03-10] MEDS: ARIPiprazole 10 mg Tablet 5 MG PO (14:44)
[2021-03-10 20:00] VITALS: RESP 19
[2021-03-10] MEDS: trazodone 50 mg Tablet PO (20:07)
[2021-03-10 21:02] VITALS: RESP 19
[2021-03-11 06:00] VITALS: BP 137/92; PULSE 117; RESP 18; O2SAT 97
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
[2021-03-11 08:00] VITALS: BP 137/92; PULSE 117; RESP 18
[2021-03-11] MEDS: nicotine 21 mg Patch 1 PATCH TRANSDERMA (10:26)
[2021-03-11] MEDS: ARIPiprazole 10 mg Tablet PO (10:26)
[2021-03-11] MEDS: sertraline 50 mg Tablet PO (10:26)
--- NOTE | 2021-03-11 13:13 | NPU.GN ---
[facility] Unit Group Topic:Depression [place] General Mood of Group: Cathy did attend and participate in group . She was social and pleasant. Good hygiene.
--- NOTE | 2021-03-11 13:15 | PC.SOCIAL ---
This report writer aided patient in completing the [facility] new patient packet today. Patient is showing signs of possibly being . Or she is sick as she was throwing up during the session with me.
[2021-03-11 14:00] VITALS: BP 143/91; PULSE 108; RESP 16; TEMP 37.1; O2SAT 97
[2021-03-11 15:28] LABS: Ethylene Glycol <10.0 mg/L (***)
[2021-03-11] MEDS: OLANZapine 5 mg ODT PO (17:35)
[2021-03-11 20:00] VITALS: RESP 16
[2021-03-11] MEDS: ondansetron 4 MG Tablet PO (21:30)
[2021-03-11] MEDS: hyDROXYzine 25 mg Capsule 50 MG PO (21:31)
[2021-03-11] MEDS: trazodone 100 mg Tablet PO (21:31)
[2021-03-11 22:00] VITALS: RESP 16
[2021-03-12 06:00] VITALS: RESP 18
[2021-03-12 08:00] VITALS: RESP 18
[2021-03-12] MEDS: ARIPiprazole 10 mg Tablet PO (08:47)
[2021-03-12] MEDS: sertraline 50 mg Tablet PO (08:47)
[2021-03-12] MEDS: acetaminophen 325 mg Tablet 650 MG PO ×2 (12:13→23:10)
[2021-03-12] MEDS: OLANZapine 5 mg ODT PO ×2 (12:13→22:12)
--- NOTE | 2021-03-12 12:38 | P.NPUPN_ITS ---
Subjective NPU Subjective: Interval history: She was found walking in the hallway. They said that she did not sleep very well last night. She says that she slept for 5 hours. She had the Zyprexa Zydis and Vistaril as well as trazodone 100 mg last night. He went into her room. She said it was the 1 with the arrows. The nurses said that she had a thing about that room even before. She took it very hard when the patient in that room left. The nurses think it was because of the room and not necessarily the patient. She says that she likes the arrows. She likes the writings on the wall. She said that that date bothers me. On the far wall is written 1912 she said that reminds me of when my grandfather . It also reminds me of 2014 up to 2020 when I knew Raymon Majano. Yesterday that she thinks that she might be . I told her that her test was normal. She is still doubtful. She says that her last period was in January. She did not want to talk about the last time she had sex. She implied that had not been very recently. He was told that if she had her that long ago could go to cause her to miss her period in February than she certainly would have been positive on the test. Mental Status Exam MSE Comments: This is an overweight 25-year-old who appears about her stated age in no acute distress. She is dressed in hospital scrubs. psychomotor activity increased. Her gait is slow and but better first day. Speech is very soft with regular rate and rhythm, normal volume, good articulation, not pressured. Alert, oriented X3 Attention and concentration she seems to be aware of her surroundings. Memory is appears to be impaired Mood is anxious. Affect is dysphoric and anxious. Thought process is not logical and does not make any sense. Thought content: Denies auditory and visual hallucinations. No delusions or paranoia are noted. No current suicidal ideation, and no homicidal ideation. Fund of knowledge is difficult to discern. Insight and judgment appear to be impaired. Impulse control is impaired. Cognition: Level of Consciousness: Awake, Alert and Follows Commands Patient Cognition Impaired: Yes Ability to Follow Directions: Good Patient Orientation (long list): Person, Place and Time Hallucination Type: Auditory Affect: Affect Description: Anxious Behavior: Patient Behavior: Cooperative Speech Pattern: Mumbled, Pressured and Rambling Vitals/I&O/Wt Last Vital Signs Temp 98.8 F 03/11/21 14:00 Pulse 108 H 03/11/21 14:00 Resp 18 03/12/21 08:00 BP 143/91 03/11/21 14:00 Pulse Ox 97 03/11/21 14:00 Data NPU : 03/09/21 06:11 03/09/21 06:11 A&P Assessment and plan (1) Acute psychosis: Status: Acute (2) Altered mental status: Status: Acute Qualifiers: Altered mental status type: delirium Qualified Code(s): R41.0 - Disorientation, unspecified (3) Cannabis abuse: Status: Acute Additional A&P Information This is a 25-year-old female who appears to have had an acute psychotic episode or delirium. We do not have that information about her past history. She says that anxiety is her biggest problem. She might have had a past diagnosis for psychosis and bipolar disorder. Plan: 1. Continue we will continue Zoloft 50 mg and Abilify 10 mg and trazodone 100 mg Continue as needed medications. 2. Continue every 15 minute checks for safety. 3. Encourage individual, group and milieu therapies. 4. Encourage sober living treatment after discharge at the highest level of care to which she is willing to commit. 5. We will monitor for safety for herself in the community prior to discharge. Involuntary Hold Information 96 Hour Hold: 96 Hour Involuntary Admission: Yes 96 Hour Hold Ending Date: 03/14/21 96 Hour Hold Ending Time: 00:01 Attestations NPU Medical Necessity Statement*: Inpatient hospitalization is medically necessary and the clinically appropriate intervention at this time. We will initiate medications and make changes as indicated. Coding Level of Care Code Acute Blasting Entry Specialist for Jamel Wilson Diagnoses Acute psychosis F23 Altered mental status R41.0 Altered mental status type: delirium Cannabis abuse F12.10
[2021-03-12] MEDS: nicotine 21 mg Patch 1 PATCH TRANSDERMA (13:08)
--- NOTE | 2021-03-12 13:12 | NPU.GN ---
[facility] Group Topic:Group Topic:Whine Barrel Activity General Mood of Group: Megha did not attend group this morning she was walking the halls..
[2021-03-12 13:50] VITALS: BP 118/73; PULSE 101; RESP 16; TEMP 36.4; O2SAT 96
[2021-03-12 20:00] VITALS: RESP 16
[2021-03-12] MEDS: trazodone 100 mg Tablet PO (20:37)
[2021-03-12 22:00] VITALS: RESP 16
[2021-03-12] MEDS: hyDROXYzine 25 mg Capsule 50 MG PO (22:12)
[2021-03-13 06:00] VITALS: RESP 18
[2021-03-13] MEDS: acetaminophen 325 mg Tablet 650 MG PO ×3 (06:32→20:58)
[2021-03-13] MEDS: nicotine 21 mg Patch 1 PATCH TRANSDERMA (08:46)
[2021-03-13] MEDS: sertraline 50 mg Tablet PO (08:46)
[2021-03-13] MEDS: ARIPiprazole 10 mg Tablet PO ×2 (08:46→18:21)
[2021-03-13] MEDS: OLANZapine 5 mg ODT PO ×3 (08:46→20:56)
[2021-03-13] MEDS: hyDROXYzine 25 mg Capsule 50 MG PO ×2 (13:16→20:56)
[2021-03-13 14:00] VITALS: BP 164/100; PULSE 120; RESP 16; TEMP 36.7; O2SAT 97
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
[2021-03-13] MEDS: nicotine 2 mg Gum BUCCAL (20:56)
[2021-03-13] MEDS: trazodone 100 mg Tablet PO (20:56)
[2021-03-13 21:23] VITALS: BP 149/95; PULSE 107; RESP 17; TEMP 36.6; O2SAT 98
[2021-03-14] MEDS: haloperidol 5 mg Tablet PO (01:59)
[2021-03-14] MEDS: OLANZapine 5 mg ODT PO ×3 (03:04→21:29)
[2021-03-14] MEDS: hyDROXYzine 25 mg Capsule 50 MG PO ×3 (03:04→21:10)
[2021-03-14 06:00] VITALS: BP 138/87; PULSE 114; RESP 18; TEMP 36.9; O2SAT 98
[2021-03-14] MEDS: acetaminophen 325 mg Tablet 650 MG PO (06:39)
[2021-03-14 08:00] VITALS: BP 138/87; PULSE 114; RESP 18; TEMP 36.9
[2021-03-14] MEDS: sertraline 50 mg Tablet PO (08:47)
[2021-03-14] MEDS: ARIPiprazole 10 mg Tablet 20 MG PO (08:47)
[2021-03-14] MEDS: nicotine 21 mg Patch 1 PATCH TRANSDERMA (10:21)
[2021-03-14 13:59] VITALS: BP 143/100; PULSE 87; RESP 17; TEMP 36.7; O2SAT 98
--- NOTE | 2021-03-14 16:12 | P.NPUPN_ITS ---
Subjective NPU Subjective: Interval history: This is a external ear concern regarding another patient when she feels triggered by. We did make adjustments putting an individual on the other side to attempt to alleviate her concerns and fears. She continues to take the medication and denies any issues with the increase yesterday. Mental Status Exam MSE Comments: This is an obese white female in hospital scrubs with limited grooming and eye contact. No abnormal movements except for psychomotor re tardation. Semicooperative with exam in extreme distress. Speech was decreased rate and volume at times almost imperceptible that she was speaking. Mood described as okay affect very anxious and bizarre. Thought process disorganized. Thought content: Patient denied suicidal or homicidal ideation, there were no delusions reported but she seemed to have somatic as well as paranoid delusions, she did not report auditory visualizations. Attention and concentration were limited and memory was unreliable but none were formally tested. She is alert and oriented times person and place. Insight and judgment are impaired impulse control is impaired. Vitals/I&O/Wt Last Vital Signs Temp 98.1 F 03/14/21 13:59 Pulse 87 03/14/21 13:59 Resp 17 03/14/21 13:59 BP 143/100 03/14/21 13:59 Pulse Ox 98 03/14/21 13:59 Data NPU : 03/09/21 06:11 03/09/21 06:11 A&P Additional A&P Information (1) Acute psychosis: (2) Altered mental status: (3) Cannabis abuse: Additional A&P Information This is a 25-year-old female who appears to have had an acute psychotic episode or delirium. We do not have that information about her past history. She says that anxiety is her biggest problem. She might have had a past diagnosis for psychosis and bipolar disorder. Plan: 1. Continue current medications except add Geodon as needed for agitation/psychosis. Likely increase Zoloft tomorrow. 2. Continue every 15 minute checks for safety. 3. Encourage individual, group and milieu therapies. 4. Encourage sober living treatment after discharge at the highest level of care to which she is willing to commit. 5. We will monitor for safety for herself in the community prior to discharge. We may have to consider a 21-day hold. Involuntary Hold Information 96 Hour Hold: 96 Hour Involuntary Admission: Yes 96 Hour Hold Ending Date: 03/14/21 96 Hour Hold Ending Time: 00:01 Attestations NPU Medical Necessity Statement*: Inpatient hospitalization is medically necessary and the clinically appropriate intervention at this time. We will initiate medications and make changes as indicated. Likely length of stay 7 to 10 days. Coding Level of Care Code Acute Principal Administrative Clerk for Jamel Wilson
[2021-03-14] MEDS: ziprasidone hcl 20 mg Capsule PO (17:33)
[2021-03-14] MEDS: trazodone 100 mg Tablet PO (21:10)
[2021-03-14 21:14] VITALS: BP 127/90; PULSE 110; RESP 17; TEMP 36.7; O2SAT 98
[2021-03-15 06:00] VITALS: BP 122/76; PULSE 111; RESP 18; TEMP 36.9; O2SAT 99
[2021-03-15] MEDS: sertraline 50 mg Tablet PO (08:42)
[2021-03-15] MEDS: ARIPiprazole 10 mg Tablet 20 MG PO (08:42)
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
--- NOTE | 2021-03-15 10:28 | P.NPUPN_ITS ---
Subjective NPU Subjective: Interval history: Patient is in today continuing to have almost stream of consciousness and disorganization. Reportedly she wanted to discharge but we discussed the fact that she was not safe for discharge. We discussed the possibility of this commercial insurance underwriter doing a 96-hour hold but she was reporting that she knew she needed to stay briefly. She denies any specific side effects to medication and we discussed the risk benefits and alternatives of increasing her Zoloft. Mental Status Exam MSE Comments: This is an obese white female in hospital scrubs with limited grooming and eye contact. No abnormal movements except for psychomotor retardation. Semicooperative with exam in extreme distress. Speech was decreased rate and volume at times almost imperceptible that she was speaking. Mood described as scared affect congruent, anxious and bizarre. Thought process disorganized. Thought content: Patient denied suicidal or homicidal ideation, there were no delusions reported but she seemed to have somatic as well as paranoid delusions, she did not report auditory visualizations. Attention and concentration were limited and memory was unreliable but none were formally tested. She is alert and oriented times person and place. Insight and judgment are impaired impulse control is impaired. Vitals/I&O/Wt Last Vital Signs Temp 98.4 F 03/15/21 06:00 Pulse 111 H 03/15/21 06:00 Resp 18 03/15/21 06:00 BP 122/76 03/15/21 06:00 Pulse Ox 99 03/15/21 06:00 Data NPU : 03/09/21 06:11 03/09/21 06:11 A&P Additional A&P Information (1) Acute psychosis: (2) Altered mental status: (3) Cannabis abuse: Additional A&P Information This is a 25-year-old female who appears to have had an acute ps ychotic episode or delirium. We do not have that information about her past history. She says that anxiety is her biggest problem. She might have had a past diagnosis for psychosis and bipolar disorder. Plan: 1. Continue current medications except add Geodon as needed for agitation/psychosis. Increase Zoloft to 100 mg p.o. every morning in the morning. 2. Continue every 15 minute checks for safety. 3. Encourage individual, group and milieu therapies. 4. Encourage sober living treatment after discharge at the highest level of care to which she is willing to commit. 5. We will monitor for safety for herself in the community prior to discharge. We may have to consider a 21-day hold. Involuntary Hold Information 96 Hour Hold: 96 Hour Involuntary Admission: Yes 96 Hour Hold Ending Date: 03/14/21 96 Hour Hold Ending Time: 00:01 Attestations NPU Medical Necessity Statement*: Inpatient hospitalization is medically necessary and the clinically appropriate intervention at this time. We will initiate medications and make changes as indicated. Likely length of stay 7 to 10 days. Coding Level of Care Code Acute Histopath Tech for Jamel Wilson
[2021-03-15] MEDS: nicotine 21 mg Patch 1 PATCH TRANSDERMA (11:53)
[2021-03-15 14:00] VITALS: BP 144/92; PULSE 106; RESP 17; TEMP 36.6; O2SAT 95
[2021-03-15] MEDS: acetaminophen 325 mg Tablet 650 MG PO (14:47)
[2021-03-15] MEDS: haloperidol 5 mg Tablet PO (19:33)
[2021-03-15] MEDS: OLANZapine 5 mg ODT PO (20:48)
[2021-03-15] MEDS: trazodone 100 mg Tablet PO (20:48)
[2021-03-15] MEDS: hyDROXYzine 25 mg Capsule 50 MG PO (20:48)
[2021-03-15 22:00] VITALS: BP 145/96; PULSE 126; RESP 18; TEMP 36.6; O2SAT 97
[2021-03-16 05:35] VITALS: BMI 34.1
[2021-03-16 06:00] VITALS: RESP 16
[2021-03-16] MEDS: sertraline 50 mg Tablet PO (07:52)
[2021-03-16] MEDS: nicotine 21 mg Patch 1 PATCH TRANSDERMA (07:52)
[2021-03-16] MEDS: ARIPiprazole 10 mg Tablet 20 MG PO (07:52)
[2021-03-16] MEDS: ondansetron 4 MG Tablet PO (08:46)
[2021-03-16] MEDS: haloperidol 5 mg Tablet PO (08:46)
[2021-03-16] MEDS: OLANZapine 5 mg ODT PO (08:46)
--- NOTE | 2021-03-16 08:50 | PC.NURSE ---
Patient remains tearful, entire body tremulous, reporting nausea. Medicated with PRN Zofran, Haldol, Zydis.
[2021-03-16] MEDS: sertraline 50 mg Tablet 100 MG PO (09:21)
[2021-03-16] MEDS: ziprasidone hcl 20 mg Capsule PO (12:20)
--- NOTE | 2021-03-16 12:25 | PC.NURSE ---
Patient talking to unseen others. Repeating Life , liberty and taxes. Easily tearful. Medicated with TIFFANIE Rodriguez.
--- NOTE | 2021-03-16 12:29 | PC.NURSE ---
Patients talking she stated, I want kids someday. I was with Ham and they Chavo and I found out I had chlamydia. Watermelon sugar, green and pink keys. I heard someone talking about secret keys and that's why I'm scared. I use THC for my anxiety and that's why the Watermelon sugar and green and pink keys, yeah.
[2021-03-16] MEDS: acetaminophen 325 mg Tablet 650 MG PO (13:05)
[2021-03-16 14:00] VITALS: BP 139/94; PULSE 116; RESP 20; TEMP 36.8; O2SAT 97
--- NOTE | 2021-03-16 14:25 | PC.NURSE ---
Patient came to desk, Me and DJ have to take each other home. Asked her where DJ was, I think he's running around outside.
[2021-03-16] MEDS: hyDROXYzine 25 mg Capsule 50 MG PO (14:43)
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
[2021-03-16] MEDS: lanolin oint 7 gm 1 APPLIC TOPICAL (16:21)
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
[2021-03-16 20:05] VITALS: BP 135/90; PULSE 116; RESP 18; O2SAT 98
[2021-03-16] MEDS: trazodone 100 mg Tablet PO (20:19)
[2021-03-17] MEDS: hyDROXYzine 25 mg Capsule 50 MG PO ×2 (01:07→09:08)
--- NOTE | 2021-03-17 01:10 | PC.NURSE ---
pt requested anxiety med, vistaril 50mg po given.
[2021-03-17 06:00] VITALS: RESP 16
[2021-03-17] MEDS: ARIPiprazole 10 mg Tablet 20 MG PO (09:08)
[2021-03-17] MEDS: sertraline 50 mg Tablet 100 MG PO (09:08)
--- NOTE | 2021-03-17 10:19 | PC.NURSE ---
PRN meds Patient anxious this morning. Took PRN Vistaril with AM meds. Vistaril helpful but not fully effective. Remains delusional and disorganized in thought process. Mood changes rapidly.
[2021-03-17 14:00] VITALS: BP 139/89; PULSE 111; RESP 17; TEMP 36.7; O2SAT 97
[2021-03-17] MEDS: nicotine 21 mg Patch 1 PATCH TRANSDERMA (16:30)
--- NOTE | 2021-03-17 16:39 | W.PM.NPUPNS ---
Subjective NPU Subjective: Interval history: Patient presents today doing better than when initially presented but still really struggling with stream of consciousness rambling conversation limited to no insight into reality. She is taking the medication as prescribed and showing slow improvement. She has discussed wanting to leave and we have discussed the 96-hour hold and the likelihood of a 21-day hold. Mental Status Exam MSE Comments: This is an obese white female in hospital scrubs with limited grooming and eye contact. No abnormal movements except for psychomotor retardation. Semicooperative with exam in mild distress. Speech was increased rate and normal volume at times with clearer speech that felt pressured. Mood described as better affect congruent, anxious and bizarre. Thought process disorganized. Thought content: Patient denied suicidal or homicidal ideation, there were no delusions reported but she seemed to have somatic as well as paranoid delusions, she did not report auditory or visual. Attention and concentration were limited and memory was unreliable but none were formally tested. She is alert and oriented times person and place. Insight and judgment are impaired, impulse control is impaired. Vitals/I&O/Wt Last Vital Signs Temp 98.0 F 03/17/21 14:00 Pulse 111 H 03/17/21 14:00 Resp 18 03/17/21 21:39 BP 139/89 03/17/21 14:00 Pulse Ox 97 03/17/21 14:00 Data NPU : 03/09/21 06:11 03/09/21 06:11 A&P Additional A&P Information (1) Acute psychosis: (2) Altered mental status: (3) Cannabis abuse: Additional A&P Information This is a 25-year-old female who appears to have had an acute psychotic episode or delirium. We do not have that information about her past history. She says that anxiety is her biggest problem. She might have had a past diagnosis for psychosis and bipolar disorder. Plan: 1. Continue current medications. 2. Continue every 15 minute checks for safety. 3. Encourage individual, group and milieu therapies. 4. Encourage sober living treatment after discharge at the highest level of care to which she is willing to commit. 5. We will monitor for safety for herself in the community prior to discharge. We will file a 21-day hold. Involuntary Hold Information 96 Hour Hold: 96 Hour Involuntary Admission: Yes 96 Hour Hold Ending Date: 03/14/21 96 Hour Hold Ending Time: 00:01 Attestations NPU Medical Necessity Statement*: Inpatient hospitalization is medically necessary and the clinically appropriate intervention at this time. We will initiate medications and make changes as indicated. Likely length of stay 7 to 10 days. Coding Level of Care Code Acute Supplier Relationship Director for Jamel Wilson
[2021-03-17] MEDS: lanolin oint 7 gm 1 APPLIC TOPICAL (19:50)
[2021-03-17] MEDS: trazodone 100 mg Tablet PO (19:50)
[2021-03-17 21:39] VITALS: RESP 18
[2021-03-18 06:00] VITALS: RESP 15
[2021-03-18] MEDS: ARIPiprazole 10 mg Tablet 20 MG PO (08:14)
[2021-03-18] MEDS: lanolin oint 7 gm 1 APPLIC TOPICAL (08:14)
[2021-03-18] MEDS: blistex lip oint 7 gm Tube 1 APPLIC TOPICAL (08:14)
[2021-03-18] MEDS: sertraline 50 mg Tablet 100 MG PO (08:15)
[2021-03-18] MEDS: hyDROXYzine 25 mg Capsule 50 MG PO ×2 (08:15→20:49)
[2021-03-18] MEDS: nicotine 21 mg Patch 1 PATCH TRANSDERMA (10:29)
[2021-03-18 14:00] VITALS: BP 134/78; PULSE 94; RESP 18; TEMP 36.4; O2SAT 98
--- NOTE | 2021-03-18 17:54 | W.PM.NPUPNS ---
Subjective NPU Subjective: Interval history: Patient presents today continuing to communicate with flight of ideas and stream of consciousness. During the conversation it ranged from 40 to her boyfriend was, what her blood type was, with her mother was transmale, that she thought she had a miscarriage when she was at [facility], that she stepped on a nail when she was about 19 and had to squeeze the possibly pus out that she had a cousin whose name is Felipe which is short for Jose M and my last name is Jorge Luis. Mental Status Exam MSE Comments: This is an obese white female in hospital scrubs with limited grooming and eye contact. No abnormal movements except for psychomotor retardation. Semicooperative with exam in mild distress. Speech was increased rate and decreased volume at times with clearer speech that felt pressured. Mood described as ready to go home, affect anxious and bizarre. Thought process disorganized. Thought content: Patient denied suicidal or homicidal ideation, there were no delusions reported but she seemed to have somatic as well as paranoid delusions, she did not report auditory or visual. Attention and concentration were limited and memory was unreliable but none were formally tested. She is alert and oriented times person and place. Insight and judgment are impaired, impulse control is impaired. Vitals/I&O/Wt Last Vital Signs Temp 97.6 F 03/18/21 14:00 Pulse 102 H 03/18/21 21:17 Resp 18 03/18/21 21:17 BP 143/108 03/18/21 21:17 Pulse Ox 100 03/18/21 21:17 Data NPU : 03/09/21 06:11 03/09/21 06:11 A&P Additional A&P Information (1) Acute psychosis: (2) Altered mental status: (3) Cannabis abuse: Additional A&P Information This is a 25-year-old female who appears to have had an acute psychotic episode or delirium. We do not have that information about her past history. She says that anxiety is her biggest problem. She might have had a past diagnosis for psychosis and bipolar disorder. Plan: 1. Continue current medications. 2. Continue every 15 minute checks for safety. 3. Encourage individual, group and milieu therapies. 4. Encourage sober living treatment after discharge at the highest level of care to which she is willing to commit. 5. We will monitor for safety for herself in the community prior to discharge. We will file a 21-day hold. Involuntary Hold Information 96 Hour Hold: 96 Hour Involuntary Admission: Yes 96 Hour Hold Ending Date: 03/14/21 96 Hour Hold Ending Time: 00:01 Attestations NPU Medical Necessity Statement*: Inpatient hospitalization is medically necessary and the clinically appropriate intervention at this time. We will initiate medications and make changes as indicated. Likely length of stay 7 to 10 days. Coding Level of Care Code Acute Duct Layer Supervisor for Jamel Wilson
[2021-03-18] MEDS: acetaminophen 325 mg Tablet 650 MG PO (20:48)
[2021-03-18] MEDS: trazodone 100 mg Tablet PO (20:49)
[2021-03-18 21:17] VITALS: BP 143/108; PULSE 102; RESP 18; O2SAT 100
[2021-03-18] MEDS: calcium carbonate 500 mg Chew Tablet PO (22:07)
[2021-03-19 06:00] VITALS: BP 128/71; PULSE 86; RESP 16; O2SAT 95
[2021-03-19] MEDS: nicotine 2 mg Gum BUCCAL (06:49)
[2021-03-19] MEDS: ARIPiprazole 10 mg Tablet 20 MG PO (08:39)
[2021-03-19] MEDS: paliperidone ER 6 mg Tablet PO (08:40)
[2021-03-19] MEDS: sertraline 50 mg Tablet 100 MG PO (08:40)
[2021-03-19] MEDS: nicotine 21 mg Patch 1 PATCH TRANSDERMA (08:40)
[2021-03-19 14:00] VITALS: BP 113/61; PULSE 88; RESP 16; TEMP 36.6; O2SAT 97
[2021-03-19] MEDS: OLANZapine 5 mg ODT PO (14:56)
[2021-03-19] MEDS: acetaminophen 325 mg Tablet 650 MG PO (16:21)
--- NOTE | 2021-03-19 18:58 | W.PM.NPUPNS ---
Subjective NPU Subjective: Interval history: Patient presents today essentially unchanged with continued stream of consciousness and tangential speech with random topics though there are some themes that tend to manifest. We discussed the fact that she is on 20 mg of Abilify and we could increase that however possible medication like Invega to see if we can break the psychosis and she understood and agreed proceed as is documented in this note. Mental Status Exam MSE Comments: This is an obese white female in hospital scrubs with limited grooming and eye contact. No abnormal movements except for psychomotor retardation. Semicooperative with exam in mild distress. Speech was increased rate and decreased volume at times with clearer speech that felt pressured. Mood described as ready to go home, affect anxious and bizarre. Thought process disorganized. Thought content: Patient denied suicidal or homicidal ideation, there were no delusions reported but she seemed to have somatic as well as paranoid delusions, she did not report auditory or visual. Attention and concentration were limited and memory was unreliable but none were formally tested. She is alert and oriented times person and place. Insight and judgment are impaired, impulse control is impaired. Vitals/I&O/Wt Last Vital Signs Temp 98.4 F 03/19/21 22:00 Pulse 58 L 03/19/21 22:00 Resp 16 03/19/21 22:00 BP 113/61 03/19/21 14:00 Pulse Ox 99 03/19/21 22:00 Data NPU : 03/09/21 06:11 03/09/21 06:11 A&P Additional A&P Information Daily(1) Acute psychosis: (2) Altered mental status: (3) Cannabis abuse: Additional A&P Information This is a 25-year-old female who appears to have had an acute psychotic episode or delirium. We do not have that information about her past history. She says that anxiety is her biggest problem. She might have had a past diagnosis for psychosis and bipolar disorder. Plan: 1. Continue current medications. Start Invega 6 mg p.o. ERE with a plan to ultimately discontinue the Abilify. 2. Continue every 15 minute checks for safety. 3. Encourage individual, group and milieu therapies. 4. Encourage sober living treatment after discharge at the highest level of care to which she is willing to commit. 5. We will monitor for safety for herself in the community prior to discharge. We will file a 21-day hold tomorrow morning. Involuntary Hold Information 96 Hour Hold: 96 Hour Involuntary Admission: Yes 96 Hour Hold Ending Date: 03/14/21 96 Hour Hold Ending Time: 00:01 Attestations NPU Medical Necessity Statement*: Inpatient hospitalization is medically necessary and the clinically appropriate intervention at this time. We will initiate medications and make changes as indicated. Likely length of stay 7 to 10 days. Coding Level of Care Code Acute Library Circulation Department Chief for Jamel Wilson
[2021-03-19] MEDS: trazodone 100 mg Tablet PO (20:57)
[2021-03-19 22:00] VITALS: PULSE 58; RESP 16; TEMP 36.9; O2SAT 99
[2021-03-20 06:00] VITALS: BP 119/79; PULSE 116; RESP 20; TEMP 36.4; O2SAT 97
[2021-03-20] MEDS: nicotine 2 mg Gum BUCCAL (06:40)
[2021-03-20] MEDS: nicotine 21 mg Patch 1 PATCH TRANSDERMA (08:53)
[2021-03-20] MEDS: ARIPiprazole 10 mg Tablet 20 MG PO (08:53)
[2021-03-20] MEDS: paliperidone ER 6 mg Tablet PO (08:54)
[2021-03-20] MEDS: sertraline 50 mg Tablet 100 MG PO (08:54)
[2021-03-20 13:45] VITALS: BP 110/75; PULSE 120; RESP 17; TEMP 36.7; O2SAT 96
--- NOTE | 2021-03-20 19:49 | W.PM.NPUPNS ---
Subjective NPU Subjective: Interval history: Patient presented today with continued swings and emotions found dancing delightfully first-line morning and then being seen absolutely tearful an hour later. She continues very random thoughts in conversation. Many times centering on male relationships in her life and eventually she shared that she is sad because she is ready to settle down and have kids and that works much more than anything. Mental Status Exam MSE Comments: This is an obese white female in hospital scrubs with limited grooming and eye contact. No abnormal movements except for psychomotor retardation. Semicooperative with exam in mild distress. Speech was increased rate and decreased volume at times with clearer speech that felt pressured. Mood described as ready to go home, affect anxious and bizarre. Thought process disorganized. Thought content: Patient denied suicidal or homicidal ideation, there were no delusions reported but she seemed to have somatic as well as paranoid delusions, she did not report auditory or visual. Attention and concentration were limited and memory was unreliable but none were formally tested. She is alert and oriented times person and place. Insight and judgment are impaired, impulse control is impaired. Vitals/I&O/Wt Last Vital Signs Temp 98.0 F 03/20/21 22:00 Pulse 104 H 03/20/21 22:00 Resp 17 03/20/21 22:00 BP 128/85 03/20/21 22:00 Pulse Ox 100 03/20/21 22:00 Data NPU : 03/09/21 06:11 03/09/21 06:11 A&P Additional A&P Information (1) Acute psychosis: (2) Altered mental status: (3) Cannabis abuse: Additional A&P Information This is a 25-year-old female who appears to have had an acute psychotic episode or delirium. We do not have that information about her past history. She says that anxiety is her biggest problem. She might have had a past diagnosis for psychosis and bipolar disorder. Plan: 1. Continue current medications. Decrease Abilify to 10 mg p.o. daily.. 2. Continue every 15 minute checks for safety. 3. Encourage individual, group and milieu therapies. 4. Encourage sober living treatment after discharge at the highest level of care to which she is willing to commit. 5. We will monitor for safety for herself in the community prior to discharge. Filed 21-day hold. Involuntary Hold Information 96 Hour Hold: 96 Hour Involuntary Admission: Yes 96 Hour Hold Ending Date: 03/14/21 96 Hour Hold Ending Time: 00:01 Attestations NPU Medical Necessity Statement*: Inpatient hospitalization is medically necessary and the clinically appropriate intervention at this time. We will initiate medications and make changes as indicated. Likely length of stay 7 to 10 days. Coding Level of Care Code Acute Medication Administration Professional for Jamel Wilson
[2021-03-20] MEDS: OLANZapine 5 mg ODT PO (21:08)
[2021-03-20] MEDS: trazodone 100 mg Tablet PO (21:08)
[2021-03-20] MEDS: hyDROXYzine 25 mg Capsule 50 MG PO (21:08)
[2021-03-20 22:00] VITALS: BP 128/85; PULSE 104; RESP 17; TEMP 36.7; O2SAT 100
[2021-03-21 06:00] VITALS: RESP 16
[2021-03-21] MEDS: hyDROXYzine 25 mg Capsule 50 MG PO ×3 (08:27→21:38)
--- NOTE | 2021-03-21 08:29 | PC.NURSE ---
Patient presents to the nurses desk reporting having a panic attack and feeling it 'in my chest'. Medicated with PRN dose of Vistaril.
[2021-03-21] MEDS: paliperidone ER 6 mg Tablet PO (09:02)
[2021-03-21] MEDS: sertraline 50 mg Tablet 100 MG PO (09:02)
[2021-03-21] MEDS: OLANZapine 5 mg ODT PO ×2 (09:02→21:38)
[2021-03-21] MEDS: nicotine 21 mg Patch 1 PATCH TRANSDERMA (09:03)
--- NOTE | 2021-03-21 12:44 | PC.NURSE ---
Patient continues to have crying episodes. It's my miscarriage. I'm not safe.
[2021-03-21] MEDS: ziprasidone hcl 20 mg Capsule PO (12:57)
--- NOTE | 2021-03-21 12:59 | PC.NURSE ---
TIFFANIE Rodriguez, patient stating, My heart, I don't think I can ever have caffeine again, it makes me feel like I can't breathe. HR 86 R 17.
[2021-03-21 13:12] VITALS: BP 135/83; PULSE 133; RESP 17; TEMP 36.5; O2SAT 97
[2021-03-21] MEDS: benztropine 1 mg Tablet PO (15:13)
[2021-03-21] MEDS: haloperidol 5 mg Tablet PO (15:13)
--- NOTE | 2021-03-21 19:41 | P.NPUPN_ITS ---
Subjective NPU Subjective: Interval history: Patient presents today continuing to laments about discharge going home. She does report that she feels better now that the Abilify was discontinued and now she is primarily on the Invega. We got a call from her ex who was on her list that was very upset that she was being kept and reports that she is getting worse. We explained that there'll be hearing next week and we will give him information regarding that hearing so he could attend and identify any issues or contributions he is prepared to make. She seemed less tangential today. Mental Status Exam MSE Comments: This is an obese white female in hospital scrubs with limited grooming and eye contact. No abnormal movements except for psychomotor retardation. Cooperative with exam in mild distress. Speech was more normal rate and less decreased volume at times with clearer speech that felt less pressured. Mood described as ready to go home, affect less anxious and bizarre. Thought process more organized. Thought content: Patient denied suicidal or homicidal ideation, there were no delusions reported but she seemed to have somatic as well as paranoid delusions, she did not report auditory or visual. Attention and concentration were limited and memory was unreliable but none were formally tested. She is alert and oriented times person and place. Insight and judgment are impaired, impulse control is impaired. Vitals/I&O/Wt Last Vital Signs Temp 97.8 F 03/21/21 19:54 Pulse 99 03/21/21 19:54 Resp 15 03/21/21 19:54 BP 119/80 03/21/21 19:54 Pulse Ox 99 03/21/21 19:54 Data NPU : 03/09/21 06:11 03/09/21 06:11 A&P Additional A&P Information (1) Acute psychosis: (2) Altered mental status: (3) Cannabis abuse: Additional A&P Information This is a 25-year-old female who appears to have had an acute psychotic episode or delirium. We do not have that information about her past history. She says that anxiety is her biggest problem. She might have had a past diagnosis for psychosis and bipolar disorder. Plan: 1. Continue current medications. Discontinued Abilify. 2. Continue every 15 minute checks for safety. 3. Encourage individual, group and milieu therapies. 4. Encourage sober living treatment after discharge at the highest level of care to which she is willing to commit. 5. We will monitor for safety for herself in the community prior to discharge. Awaiting 21-day hold hearing. Involuntary Hold Information 96 Hour Hold: 96 Hour Involuntary Admission: Yes 96 Hour Hold Ending Date: 03/14/21 96 Hour Hold Ending Time: 00:01 Attestations NPU Medical Necessity Statement*: Inpatient hospitalization is medically necessary and the clinically appropriate intervention at this time. We will initiate medications and make changes as indicated. Likely length of stay 7 to 10 days. Coding Level of Care Code Acute Quality Control Lab Tech for Jamel Wilson
[2021-03-21 19:54] VITALS: BP 119/80; PULSE 99; RESP 15; TEMP 36.6; O2SAT 98
[2021-03-21] MEDS: trazodone 100 mg Tablet PO (21:38)
[2021-03-22 06:00] VITALS: BP 132/80; PULSE 101; RESP 16; TEMP 36.5; O2SAT 98
--- NOTE | 2021-03-22 07:54 | P.NPUPN_ITS ---
Subjective NPU Subjective: Interval history: Patient presents today continuing to have her mom infections where she left random thoughts interspersed. She is a couple days removed from Abilify and now on the Invega. We agreed that we would give a few more days on the Invega but we will need to start looking at possibly adding other medication to help to break this kaiden. We discussed the fact that she should have a 21-day hold hearing likely by Wednesday at the latest. Mental Status Exam MSE Comments: This is an obese white female in hospital scrubs with limited grooming and eye contact. No abnormal movements except for psychomotor retardation. Cooperative with exam in mild distress. Speech was more normal rate and less decreased volume at times with clearer speech that felt less pressured. Mood described as ready to go home, affect less anxious and bizarre. Thought process more organized. Thought content: Patient denied suicidal or homicidal ideation, there were no delusions reported but she seemed to have somatic as well as paranoid delusions, she did not report auditory or visual. Attention and concentration were limited and memory was unreliable but none were formally tested. She is alert and oriented times person and place. Insight and judgment are impaired, impulse control is impaired. Vitals/I&O/Wt Last Vital Signs Temp 97.7 F 03/22/21 06:00 Pulse 101 H 03/22/21 06:00 Resp 16 03/22/21 06:00 BP 132/80 03/22/21 06:00 Pulse Ox 98 03/22/21 06:00 Data NPU : 03/09/21 06:11 03/09/21 06:11 A&P Additional A&P Information (1) Acute psychosis: (2) Altered mental status: (3) Cannabis abuse: Additional A&P Information This is a 25-year-old female who appears to have had an acute psychotic episode or delirium. We do not have that information about her past history. She says that anxiety is her biggest problem. She might have had a past diagnosis for psychosis and bipolar disorder. Plan: 1. Continue current medications. Discontinued Abilify. Now on Invega 6 mg p.o. daily as main antipsychotic. 2. Continue every 15 minute checks for safety. 3. Encourage individual, group and milieu therapies. 4. Encourage sober living treatment after discharge at the highest level of care to which she is willing to commit. 5. We will monitor for safety for herself in the community prior to discharge. Awaiting 21-day hold hearing. Involuntary Hold Information 96 Hour Hold: 96 Hour Involuntary Admission: Yes 96 Hour Hold Ending Date: 03/14/21 96 Hour Hold Ending Time: 00:01 Attestations NPU Medical Necessity Statement*: Inpatient hospitalization is medically necessary and the clinically appropriate intervention at this time. We will initiate medications and make changes as indicated. Likely length of stay 7 to 10 days. Coding Level of Care Code Acute Cloth Mercerizer Back Tender for Jamel Wilson
[2021-03-22] MEDS: nicotine 21 mg Patch 1 PATCH TRANSDERMA (08:50)
[2021-03-22] MEDS: sertraline 50 mg Tablet 100 MG PO (08:50)
[2021-03-22] MEDS: paliperidone ER 6 mg Tablet PO (08:50)
[2021-03-22 14:00] VITALS: BP 140/90; PULSE 110; RESP 17; TEMP 37.1; O2SAT 98
[2021-03-22] MEDS: OLANZapine 5 mg ODT PO (17:40)
[2021-03-22] MEDS: acetaminophen 325 mg Tablet 650 MG PO (17:40)
[2021-03-22] MEDS: trazodone 100 mg Tablet PO (20:52)
[2021-03-22 21:20] VITALS: BP 126/84; PULSE 114; RESP 20; TEMP 36.7; O2SAT 99
[2021-03-22] MEDS: lanolin oint 7 gm 1 APPLIC TOPICAL (21:49)
[2021-03-22] MEDS: blistex lip oint 7 gm Tube 1 APPLIC TOPICAL (21:49)
[2021-03-22] MEDS: hyDROXYzine 25 mg Capsule 50 MG PO (21:51)
[2021-03-23] MEDS: lanolin oint 7 gm 1 APPLIC TOPICAL (02:36)
[2021-03-23] MEDS: blistex lip oint 7 gm Tube 1 APPLIC TOPICAL ×2 (02:36→20:49)
[2021-03-23 06:00] VITALS: BP 132/85; PULSE 116; RESP 18; TEMP 36.6; O2SAT 97; BMI 34.1
[2021-03-23] MEDS: haloperidol 5 mg Tablet PO ×2 (07:12→17:34)
--- NOTE | 2021-03-23 07:12 | PC.NURSE ---
Patient tearful, pacing hallway, stating, I need the green pill for my heart because I can't breathe in here. PRN Haldol PO given to patient.
[2021-03-23] MEDS: benztropine 1 mg Tablet PO (08:06)
[2021-03-23] MEDS: sertraline 50 mg Tablet 100 MG PO (08:06)
[2021-03-23] MEDS: nicotine 21 mg Patch 1 PATCH TRANSDERMA (08:06)
[2021-03-23] MEDS: paliperidone ER 6 mg Tablet PO (08:06)
[2021-03-23] MEDS: hyDROXYzine 25 mg Capsule 50 MG PO (11:39)
[2021-03-23 14:00] VITALS: BP 141/86; PULSE 126; RESP 18; TEMP 36.7; O2SAT 98
[2021-03-23] MEDS: OLANZapine 5 mg ODT PO ×2 (14:28→20:50)
--- NOTE | 2021-03-23 19:04 | W.PM.NPUPNS ---
Subjective NPU Subjective: Interval history: Patient presents today essentially unchanged she continues to focus on who she might date and her father and her last name and random things of that nature. She continues to laments on not being able to go home. We continue to discuss the fact that she would have a court hearing likely in the next 48 hours. For 21-day hold. Mental Status Exam MSE Comments: This is an obese white female in hospital scrubs with limited grooming and eye contact. No abnormal movements except for psychomotor retardation. Cooperative with exam in mild distress. Speech was more normal rate and less decreased volume at times with clearer speech that felt less pressured. Mood described as ready to go home, affect less anxious and bizarre. Thought process more organized. Thought content: Patient denied suicidal or homicidal ideation, there were no delusions reported but she seemed to have somatic as well as paranoid delusions, she did not report auditory or visual. Attention and concentration were limited and memory was unreliable but none were formally tested. She is alert and oriented times person and place. Insight and judgment are impaired, impulse control is impaired. Vitals/I&O/Wt Last Vital Signs Temp 98.1 F 03/23/21 20:25 Pulse 116 H 03/23/21 20:25 Resp 18 03/23/21 20:25 BP 128/85 03/23/21 20:25 Pulse Ox 97 03/23/21 20:25 Weight last 48 hrs Weight 81.919 kg Data NPU : 03/09/21 06:11 03/09/21 06:11 A&P Additional A&P Information (1) Acute psychosis: (2) Altered mental status: (3) Cannabis abuse: Additional A&P Information This is a 25-year-old female who appears to have had an acute psychotic episode or delirium. We do not have that information about her past history. She says that anxiety is her biggest problem. She might have had a past diagnosis for psychosis and bipolar disorder. Plan: 1. Continue current medications. Discontinued Abilify. Now on Invega 6 mg p.o. daily as main antipsychotic. 2. Continue every 15 minute checks for safety. 3. Encourage individual, group and milieu therapies. 4. Encourage sober living treatment after discharge at the highest level of care to which she is willing to commit. 5. We will monitor for safety for herself in the community prior to discharge. Awaiting 21-day hold hearing. Involuntary Hold Information 96 Hour Hold: 96 Hour Involuntary Admission: Yes 96 Hour Hold Ending Date: 03/14/21 96 Hour Hold Ending Time: 00:01 Attestations NPU Medical Necessity Statement*: Inpatient hospitalization is medically necessary and the clinically appropriate intervention at this time. We will initiate medications and make changes as indicated. Likely length of stay 7 to 10 days. Coding Level of Care Code Acute Derrick Worker Well Service for Jamel Wilson
[2021-03-23 20:25] VITALS: BP 128/85; PULSE 116; RESP 18; TEMP 36.7; O2SAT 97
--- NOTE | 2021-03-23 20:50 | PC.NURSE ---
zyprexa 5mg SL given for increased anxiety. pt noted to be pacing hallway and interacting with another pt who has been very disruptive this evening.
[2021-03-23] MEDS: trazodone 100 mg Tablet PO (20:52)
[2021-03-24] MEDS: hyDROXYzine 25 mg Capsule 50 MG PO ×2 (02:10→13:05)
--- NOTE | 2021-03-24 02:35 | PC.NURSE ---
pt given vistaril 50mg po for anxiety.
--- NOTE | 2021-03-24 02:37 | PC.NURSE ---
pt approached nurses station and stated can I leave? sexual harassment . staff asked pt to explain what she meant. pt handed staff a ripped up piece of a crayon box and said i need to call my naphthalene operator helper now staff educated pt that the phones were turned back on at 0700. pt stated i know i can see and hear in the dark, so I want my naphthalene operator helper here now then pt asked to speak with a social secretary, staff educated pt that the social secretary wasn't on the unit at the time. pt stated the lady from [facility] and proceeded to write C on her paper. pt walked back to assigned room
[2021-03-24 06:00] VITALS: RESP 16
[2021-03-24] MEDS: nicotine 21 mg Patch 1 PATCH TRANSDERMA (08:51)
[2021-03-24] MEDS: sertraline 50 mg Tablet 100 MG PO (08:51)
[2021-03-24] MEDS: paliperidone ER 6 mg Tablet PO (08:51)
--- NOTE | 2021-03-24 12:44 | NPU.GN ---
[facility] Group Topic:Rocael Norwood / Discussion General Mood of Group: Cathy attended and participated in group today. She is soft spoken as always and polite. She is still mentally confused. She was in a decent mood.
[2021-03-24 14:00] VITALS: BP 143/91; PULSE 137; RESP 20; TEMP 37.2; O2SAT 98
--- NOTE | 2021-03-24 17:01 | W.PM.NPUPNS ---
Subjective NPU Subjective: Interval history: Patient presents today reporting that she wants to go home. We discussed what things would be like at the court house and she understood and wanted to go to the hearing. At the hearing she did not testify and ultimately she was placed on a 21-day hold. Mental Status Exam MSE Comments: This is an obese white female in hospital scrubs with limited grooming and eye contact. No abnormal movements except for psychomotor retardation. Cooperative with exam in mild distress. Speech was more normal rate and less decreased volume at times with clearer speech that felt less pressured. Mood described as ready to go home, affect less anxious and bizarre. Thought process more organized. Thought content: Patient denied suicidal or homicidal ideation, there were no delusions reported but she seemed to have somatic as well as paranoid delusions, she did not report auditory or visual. Attention and concentration were limited and memory was unreliable but none were formally tested. She is alert and oriented times person and place. Insight and judgment are impaired, impulse control is impaired. Vitals/I&O/Wt Last Vital Signs Temp 99.0 F 03/24/21 14:00 Pulse 137 H 03/24/21 14:00 Resp 20 H 03/24/21 14:00 BP 143/91 03/24/21 14:00 Pulse Ox 98 03/24/21 14:00 Data NPU : 03/09/21 06:11 03/09/21 06:11 A&P Additional A&P Information (1) Acute psychosis: (2) Altered mental status: (3) Cannabis abuse: Additional A&P Information This is a 25-year-old female who appears to have had an acute psychotic episode or delirium. We do not have that information about her past history. She says that anxiety is her biggest problem. She might have had a past diagnosis for psychosis and bipolar disorder. Plan: 1. Continue current medications. Discontinued Abilify. Now on Invega 6 mg p.o. daily as main antipsychotic. 2. Continue every 15 minute checks for safety. 3. Encourage individual, group and milieu therapies. 4. Encourage sober living treatment after discharge at the highest level of care to which she is willing to commit. 5. We will monitor for safety for herself in the community prior to discharge. Placed on 21-day hold Involuntary Hold Information 96 Hour Hold: 96 Hour Involuntary Admission: Yes 96 Hour Hold Ending Date: 03/14/21 96 Hour Hold Ending Time: 00:01 Attestations NPU Medical Necessity Statement*: Inpatient hospitalization is medically necessary and the clinically appropriate intervention at this time. We will initiate medications and make changes as indicated. Likely length of stay 7 to 10 days. Coding Level of Care Code Acute Assembler Truck Trailer for Jamel Wilson
[2021-03-24 21:32] VITALS: BP 123/85; PULSE 121; RESP 17; TEMP 36.6; O2SAT 98
[2021-03-24] MEDS: OLANZapine 5 mg ODT PO (21:42)
[2021-03-24] MEDS: trazodone 100 mg Tablet PO (21:42)
--- NOTE | 2021-03-24 21:45 | PC.NURSE ---
pt requested anxiety med, zyprexa zydisis 5mg SL given.
[2021-03-24] MEDS: blistex lip oint 7 gm Tube 1 APPLIC TOPICAL (21:50)
--- NOTE | 2021-03-24 22:00 | PC.NURSE ---
pt resting quietly with both eyes closed
[2021-03-24] MEDS: calcium carbonate 500 mg Chew Tablet PO (22:28)
[2021-03-25 05:51] VITALS: BP 120/77; PULSE 109; RESP 16; TEMP 36.8; O2SAT 98
--- NOTE | 2021-03-25 07:08 | P.NPUPN_ITS ---
Subjective NPU Subjective: Interval history: Cathy continues to have flight of ideas. The conversation today she asked about the injury to her left shoulder from 4 to 6 years ago needing surgery, unable to control her temperature on that foot, [address] with [address] foot or the other, asked that bring medical records because she is never had her on medical records because her mom always does it but she is 25 so she should be able to do it herself, references to who she has or does not have sex with and who she lives with and continued lack a filter or insight into her own behavior. We discussed the risk benefits and alternatives of initiating lithium understood agreed to proceed as is documented in his note. Mental Status Exam MSE Comments: This is an obese white female in hospital scrubs with limited grooming and eye contact. No abnormal movements except for psychomotor retardation. Cooperative with exam in mild distress. Speech was more normal rate and less decreased volume at times with clearer speech that felt less pressured. Mood described as ready to go home, affect less anxious and bizarre. Thought process more organized. Thought content: Patient denied suicidal or homicidal ideation, there were no delusions reported but she seemed to have somatic as well as paranoid delusions, she did not report auditory or visual. Attention and concentration were limited and memory was unreliable but none were formally tested. She is alert and oriented times person and place. Insight and judgment are impaired, impulse control is impaired. Vitals/I&O/Wt Last Vital Signs Temp 98.2 F 03/25/21 05:51 Pulse 109 H 03/25/21 05:51 Resp 16 03/25/21 05:51 BP 120/77 03/25/21 05:51 Pulse Ox 98 03/25/21 05:51 Data NPU : 03/09/21 06:11 03/09/21 06:11 A&P Additional A&P Information (1) Acute psychosis: (2) Altered mental status: (3) Cannabis abuse: Additional A&P Information This is a 25-year-old female who appears to have had an acute psychotic episode or delirium. We do not have that information about her past history. She says that anxiety is her biggest problem. She might have had a past diagnosis for psychosis and bipolar disorder. Plan: 1. Continue current medications. Discontinued Abilify. Now on Invega 6 mg p.o. daily as main antipsychotic. Start lithium 300 p.o. nightly. 2. Continue every 15 minute checks for safety. 3. Encourage individual, group and milieu therapies. 4. Encourage sober living treatment after discharge at the highest level of care to which she is willing to commit. 5. We will monitor for safety for herself in the community prior to discharge. Placed on 21-day hold 6. We will repeat labs. Involuntary Hold Information 96 Hour Hold: 96 Hour Involuntary Admission: Yes 96 Hour Hold Ending Date: 03/14/21 96 Hour Hold Ending Time: 00:01 Attestations NPU Medical Necessity Statement*: Inpatient hospitalization is medically necessary and the clinically appropriate intervention at this time. We will initiate medications and make changes as indicated. Likely length of stay 7 to 10 days. Coding Level of Care Code Acute Stripping Cutter And Winder for Jamel Wilson
[2021-03-25] MEDS: paliperidone ER 6 mg Tablet PO (08:06)
[2021-03-25] MEDS: nicotine 21 mg Patch 1 PATCH TRANSDERMA (08:06)
[2021-03-25] MEDS: sertraline 50 mg Tablet 100 MG PO (08:06)
[2021-03-25] MEDS: hyDROXYzine 25 mg Capsule 50 MG PO ×2 (09:34→20:17)
--- NOTE | 2021-03-25 13:06 | NPU.GN ---
[facility] Topic: [place] [place] General Mood of Group: Cathy did attend group and participated in group. She was fixated on going home and she had good hygiene.
[2021-03-25 14:00] VITALS: BP 147/98; PULSE 105; RESP 17; TEMP 36.3; O2SAT 98
[2021-03-25] MEDS: OLANZapine 5 mg ODT PO (14:50)
[2021-03-25] MEDS: acetaminophen 325 mg Tablet 650 MG PO (14:50)
--- NOTE | 2021-03-25 14:58 | PC.NURSE ---
Pt c/o anxiety and pacing up and down the hallway. Pt requesting medication for anxiety. Pt given Zydis 5 mg PO without complication.
[2021-03-25 19:50] VITALS: BP 138/79; PULSE 96; RESP 18; O2SAT 96
[2021-03-25] MEDS: trazodone 100 mg Tablet PO (20:17)
--- NOTE | 2021-03-25 20:47 | PC.NURSE ---
pt given vistaril 50mg po for noted increased anxiety. pt pacing hallway waiting on a phone call. comes to desk and looks to other side and down north hallway, says she is looking for a pt that agitated her earlier in the day.
[2021-03-25] MEDS: haloperidol 5 mg Tablet PO (22:47)
[2021-03-26 06:00] VITALS: BP 113/79; PULSE 98; RESP 16; O2SAT 99
[2021-03-26] MEDS: blistex lip oint 7 gm Tube 1 APPLIC TOPICAL (06:09)
[2021-03-26] MEDS: nicotine 2 mg Gum BUCCAL (06:50)
[2021-03-26] MEDS: OLANZapine 5 mg ODT PO ×2 (06:52→16:20)
[2021-03-26] MEDS: hyDROXYzine 25 mg Capsule 50 MG PO ×2 (06:52→16:20)
[2021-03-26 07:31] LABS: Bilirubin Urine Neg (Negative); Blood Urine Neg (Negative); Glucose Urine UA Norm (Normal); Ketones Urine Negative (Negative); Leukocyte Esterase Urine Negative (Negative); Nitrate Urine Negative (Negative); Protein Urine Neg (Negative); Specific Gravity, Urine 1.005 (1.005-1.030); Sulfosalicylic Acid Urine Negative (Negative); Urine Appearance SL Hazy (CLEAR); Urine Color Yellow (Yellow); Urobilinogen Urine Norm (Negative); pH Urine 8 (5-7)
[2021-03-26 07:32] LABS: Add Urine Culture? No; Bacteria Urine 1+ /hpf; WBC Urine 0-4 /hpf (0-5)
[2021-03-26] MEDS: sertraline 50 mg Tablet 100 MG PO (08:30)
[2021-03-26] MEDS: paliperidone ER 6 mg Tablet PO (08:30)
[2021-03-26] MEDS: nicotine 21 mg Patch 1 PATCH TRANSDERMA (08:30)
--- NOTE | 2021-03-26 11:17 | NPU.GN ---
[facility] Topic:[facility] General Mood of Group: John did attend group but did not participate.
--- NOTE | 2021-03-26 13:10 | W.PM.NPUPNS ---
Subjective NPU Subjective: Interval history: Patient presents today reporting that she is tolerating the medication really denying any changes or issues. We discussed that we would investigate the laboratory studies that we obtained to see if there are any indication of an area of investigation has been raised. Otherwise she continued with the same areas of thought including rate, her father, her boyfriend and when she can leave. No significant changes or improvement. Mental Status Exam MSE Comments: This is an obese white female in hospital scrubs with limited grooming and eye contact. No abnormal movements except for psychomotor retardation. Cooperative with exam in mild distress. Speech was more normal rate and less decreased volume at times with clearer speech that felt less pressured. Mood described as ready to go home, affect less anxious and bizarre. Thought process more organized. Thought content: Patient denied suicidal or homicidal ideation, there were no delusions reported but she seemed to have somatic as well as paranoid delusions, she did not report auditory or visual. Attention and concentration were limited and memory was unreliable but none were formally tested. She is alert and oriented times person and place. Insight and judgment are impaired, impulse control is impaired. Vitals/I&O/Wt Last Vital Signs Temp 97.4 F L 03/25/21 14:00 Pulse 98 03/26/21 06:00 Resp 16 03/26/21 06:00 BP 113/79 03/26/21 06:00 Pulse Ox 99 03/26/21 06:00 Data NPU : 03/26/21 13:01 03/26/21 13:01 A&P Additional A&P Information (1) Acute psychosis: (2) Altered mental status: (3) Cannabis abuse: Additional A&P Information This is a 25-year-old female who appears to have had an acute psychotic episode or delirium. We do not have that information about her past history. She says that anxiety is her biggest problem. She might have had a past diagnosis for psychosis and bipolar disorder. Plan: 1. Continue current medications. Discontinued Abilify. Now on Invega 6 mg p.o. daily as main antipsychotic. Started lithium 300 p.o. nightly. 2. Continue every 15 minute checks for safety. 3. Encourage individual, group and milieu therapies. 4. Encourage sober living treatment after discharge at the highest level of care to which she is willing to commit. 5. We will monitor for safety for herself in the community prior to discharge. Placed on 21-day hold 6. We will evaluate laboratory findings Involuntary Hold Information 96 Hour Hold: 96 Hour Involuntary Admission: Yes 96 Hour Hold Ending Date: 03/14/21 96 Hour Hold Ending Time: 00:01 Attestations NPU Medical Necessity Statement*: Inpatient hospitalization is medically necessary and the clinically appropriate intervention at this time. We will initiate medications and make changes as indicated. Likely length of stay 7 to 10 days. Coding Level of Care Code Acute Maintenance Journeyman for Jamel Wilson
[2021-03-26 13:42] LABS: Basophils # 0.1 10^3/uL (0.0-0.1); Basophils % 0.6 %; Eosinophils # 0.1 10^3/uL (0.0-0.8); Eosinophils % 0.9 %; Hematocrit 44.4 % (37.0-47.0); Hemoglobin 14.3 g/dL (11.5-15.3); Lymphocytes # 2.3 10^3/uL (0.8-4.8); Lymphocytes % 15.7 %; Mean Corpuscular HGB Conc 32.2 g/dL (30.0-36.0); Mean Corpuscular Hemoglobin 30.1 pg (28.0-34.0); Mean Corpuscular Volume 93.5 fl (81-99); Monocytes # 0.8 10^3/uL (0.2-0.9); Monocytes % 5.5 %; Neutrophils # 11.14 10^3/uL (1.8-7.7); Nucleated Red Blood Cells % 0 %; Platelet Count 345 10^3/cmm (130-400); Red Blood Count 4.75 10^6/uL (4.1-5.3); Red Cell Distribution Width 12.8 % (12.1-15.1); White Blood Count 14.5 10^3/uL (4.0-10.0)
[2021-03-26 14:01] LABS: Ammonia 26 umol/L (11-51)
[2021-03-26 14:18] LABS: Alanine Aminotransferase 25 U/L (0-33); Albumin Level 4.4 g/dL (3.5-5.2); Alkaline Phosphatase 94 IU/L (35-105); Anion Gap 19.2 (5-19); Aspartate Amino Transferase 20 U/L (0-32); Blood Urea Nitrogen 8 mg/dL (6-20); Calcium 8.9 mg/dL (8.5-10.5); Carbon Dioxide 23 mmol/L (22-29); Chloride 104 mmol/L (98-107); Globulin 2.1 g/dL (1.3-4.6); Glomerular Filtration Rate 152.9 mL/min (90-130); Glucose 74 mg/dL (65-115); Osmolality Calculated 291 mOsm/kg (285-295); Potassium 4.2 mmol/L (3.5-5.1); Sodium 142 mmol/L (136-145); Thyroid Stimulating Hormone 1.86 uIU/mL (0.27-4.20); Total Bilirubin 0.2 mg/dL (0.15-1.2); Total Protein 6.5 g/dL (6.6-8.7)
[2021-03-26 19:39] VITALS: BP 129/83; PULSE 117; RESP 18; O2SAT 97
[2021-03-26] MEDS: trazodone 100 mg Tablet PO (20:33)
[2021-03-26] MEDS: haloperidol 5 mg Tablet PO (20:33)
[2021-03-27 06:00] VITALS: BP 128/64; PULSE 78; RESP 16; O2SAT 97
[2021-03-27] MEDS: nicotine 21 mg Patch 1 PATCH TRANSDERMA (08:21)
[2021-03-27] MEDS: paliperidone ER 6 mg Tablet PO (08:21)
[2021-03-27] MEDS: sertraline 50 mg Tablet 100 MG PO (08:21)
[2021-03-27] MEDS: hyDROXYzine 25 mg Capsule 50 MG PO ×2 (10:01→19:45)
[2021-03-27 13:32] VITALS: BP 136/84; PULSE 122; RESP 17; TEMP 36.8; O2SAT 100
--- NOTE | 2021-03-27 14:00 | P.NPUPN_ITS ---
Subjective NPU Subjective: Interval history: She said that she is doing better. She says he made a mistake yesterday at the hearing telling her larger that she had been poisoned while she was here and he did not believe her. She says that she knows she was poisoned because 1 night she felt nauseated and dizzy. She says she told the staff that she had been poisoned but they did not do anything about it. He says that she is going through the steps and trying to get better so that she can leave. She was concerned that she would have to stay for the whole 21 days of her commitment. She wants to be home for the holidays. She asked about the lithium and what it was for. She felt that it was appropriate to use as a boost for the Zoloft. She also agreed that increase the Zoloft to 200 mg. She says anxiety is a big problem for her. Mental Status Exam MSE Comments: This is an obese white female in hospital scrubs with limited grooming and eye contact. No abnormal movements except for psychomotor retardation. Cooperative with exam in mild distress. Speech was more normal rate and less decreased volume at times with clearer speech that felt less pressured. Mood described good and ready to go home. Thought process more organized she mostly stayed on topic. Thought content: Patient denied suicidal or homicidal ideation, there were no delusions reported but she seemed to have somatic as well as paranoid delusions, she did not report auditory or visual. Attention and concentration were limited and memory was unreliable but none were formally tested. She is alert and oriented times person and place. Insight and judgment are impaired, impulse control is impaired. Cognition: Patient Appearance: Appropriate Level of Consciousness: Awake, Alert and Follows Commands Patient Cognition Impaired: Yes Ability to Follow Directions: Good Patient Orientation (long list): Person and Name Hallucination Type: None Delusion Description: Paranoid Ideation and Persecutory Thought Process: Circumstantial Affect: Affect Description: Appropriate Behavior: Patient Behavior: Appropriate Speech Pattern: Clear Vitals/I&O/Wt Last Vital Signs Temp 98.2 F 03/27/21 13:32 Pulse 122 H 03/27/21 13:32 Resp 17 03/27/21 13:32 BP 136/84 03/27/21 13:32 Pulse Ox 100 03/27/21 13:32 Data NPU : 03/26/21 13:01 03/26/21 13:01 A&P Assessment and plan (1) Acute psychosis: Status: Acute (2) Altered mental status: Status: Acute Qualifiers: Altered mental status type: delirium Qualified Code(s): R41.0 - Disorientation, unspecified (3) Cannabis abuse: Status: Acute Additional A&P Information (1) Acute psychosis: (2) Altered mental status: (3) Cannabis abuse: Additional A&P Information This is a 25-year-old female who appears to have had an acute psychotic episode or delirium. We do not have that information about her past history. She says that anxiety is her biggest problem. She might have had a past diagnosis for psychosis and bipolar disorder. Plan: 1. Continue current medications. Now on Invega 6 mg p.o. daily as main antipsychotic. increasing lithium gradually to 300 mg TID. increase Zoloft 200 mg daily 2. Continue every 15 minute checks for safety. 3. Encourage individual, group and milieu therapies. 4. Encourage sober living treatment after discharge at the highest level of care to which she is willing to commit. 5. We will monitor for safety for herself in the community prior to discharge. Placed on 21-day hold 6. We will evaluate laboratory findings Involuntary Hold Information 96 Hour Hold: 96 Hour Involuntary Admission: Yes 96 Hour Hold Ending Date: 03/14/21 96 Hour Hold Ending Time: 00:01 Attestations NPU Medical Necessity Statement*: Inpatient hospitalization is medically necessary and the clinically appropriate intervention at this time. We will initiate medications and make changes as indicated. Coding Level of Care Code Acute Wheel Aligner for Jamel Wilson Diagnoses Acute psychosis F23 Altered mental status R41.0 Altered mental status type: delirium Cannabis abuse F12.10
[2021-03-27] MEDS: lithium carbonate 300 mg Capsule PO (17:09)
[2021-03-27 20:27] VITALS: BP 127/77; PULSE 114; RESP 18; O2SAT 99
[2021-03-27] MEDS: trazodone 100 mg Tablet PO (20:33)
[2021-03-28 06:00] VITALS: BP 112/78; PULSE 118; RESP 15; O2SAT 96
[2021-03-28] MEDS: nicotine 2 mg Gum BUCCAL (06:30)
--- NOTE | 2021-03-28 07:39 | W.PM.NPUPNS ---
Subjective NPU Subjective: Interval history: She was in the hallway after taking a bath. She told me that she did not feel comfortable here but was working the steps to try to be able to leave. Another patient said that they were going to spend [place] together. She did not deny that. She also requested that she be able to cut her fingernails and toenails. Her fingernails are getting along and making it difficult for her to write. They are also cracking. She also said that her ex-boyfriend who lives across the street from her is going to go into her house and get a sweater for her because she is cold. She has been told that the marco antonio that she was living with has left. She says the landlord will let her ex-boyfriend in her apartment to get the sweater. She will have her increased dose of Zoloft and lithium today. Had an elevated white count recently. Urine culture yesterday showed only superficial jayesh. We will repeat the CBC. Her temperature yesterday was 98.2. Mental Status Exam MSE Comments: This is an obese white female in hospital scrubs with limited grooming and eye contact. No abnormal movements except for psychomotor retardation. Cooperative with exam in mild distress. Speech was more normal rate and less decreased volume at times with clearer speech that felt less pressured. Mood described good and ready to go home. Thought process more organized she mostly stayed on topic. Thought content: Patient denied suicidal or homicidal ideation, there were no delusions reported but she seemed to have somatic as well as paranoid delusions, she did not report auditory or visual. Attention and concentration were limited and memory was unreliable but none were formally tested. She is alert and oriented times person and place. Insight and judgment are impaired, impulse control is impaired. Cognition: Patient Appearance: Appropriate Level of Consciousness: Awake, Alert and Follows Commands Patient Cognition Impaired: Yes Ability to Follow Directions: Good Patient Orientation (long list): Person and Name Hallucination Type: None Delusion Description: Paranoid Ideation and Persecutory Thought Process: Circumstantial Affect: Affect Description: Appropriate Behavior: Patient Behavior: Appropriate Speech Pattern: Appropriate Vitals/I&O/Wt Last Vital Signs Temp 98.2 F 03/27/21 13:32 Pulse 118 H 03/28/21 06:00 Resp 15 03/28/21 06:00 BP 112/78 03/28/21 06:00 Pulse Ox 96 03/28/21 06:00 Data NPU : 03/26/21 13:01 03/26/21 13:01 A&P Assessment and plan (1) Acute psychosis: Status: Acute (2) Altered mental status: Status: Acute Qualifiers: Altered mental status type: delirium Qualified Code(s): R41.0 - Disorientation, unspecified (3) Cannabis abuse: Status: Acute Additional A&P Information (1) Acute psychosis: (2) Altered mental status: (3) Cannabis abuse: Additional A&P Information This is a 25-year-old female who appears to have had an acute psychotic episode or delirium. We do not have that information about her past history. She says that anxiety is her biggest problem. She might have had a past diagnosis for psychosis and bipolar disorder. Plan: 1. Continue current medications. Now on Invega 6 mg p.o. daily as main antipsychotic. increasing lithium gradually to 300 mg TID. increase Zoloft 200 mg daily 2. Continue every 15 minute checks for safety. 3. Encourage individual, group and milieu therapies. 4. Encourage sober living treatment after discharge at the highest level of care to which she is willing to commit. 5. We will monitor for safety for herself in the community prior to discharge. Placed on 21-day hold 6. We will evaluate laboratory findings Involuntary Hold Information 96 Hour Hold: 96 Hour Involuntary Admission: Yes 96 Hour Hold Ending Date: 03/14/21 96 Hour Hold Ending Time: 00:01 Attestations NPU Medical Necessity Statement*: Inpatient hospitalization is medically necessary and the clinically appropriate intervention at this time. We will initiate medications and make changes as indicated. Coding Level of Care Code Acute Cigar Head Puncher for Jamel Wilson Diagnoses Acute psychosis F23 Altered mental status R41.0 Altered mental status type: delirium Cannabis abuse F12.10
[2021-03-28] MEDS: sertraline 100 mg Tablet 200 MG PO (09:21)
[2021-03-28] MEDS: nicotine 21 mg Patch 1 PATCH TRANSDERMA (09:21)
[2021-03-28] MEDS: acetaminophen 325 mg Tablet 650 MG PO ×2 (09:21→21:37)
[2021-03-28] MEDS: ziprasidone hcl 20 mg Capsule PO ×2 (09:23→17:53)
[2021-03-28] MEDS: paliperidone ER 6 mg Tablet PO (09:23)
[2021-03-28] MEDS: lithium carbonate 300 mg Capsule PO ×2 (09:23→17:36)
[2021-03-28 10:00] LABS: Basophils # 0.1 10^3/uL (0.0-0.1); Basophils % 0.4 %; Eosinophils # 0.2 10^3/uL (0.0-0.8); Eosinophils % 1.3 %; Hematocrit 45.1 % (37.0-47.0); Hemoglobin 14.8 g/dL (11.5-15.3); Lymphocytes # 2.2 10^3/uL (0.8-4.8); Lymphocytes % 18.1 %; Mean Corpuscular HGB Conc 32.8 g/dL (30.0-36.0); Mean Corpuscular Volume 94.4 fl (81-99); Mean Platelet Volume 8.7 fL (7.4-10.4); Monocytes # 0.9 10^3/uL (0.2-0.9); Monocytes % 7.9 %; Neutrophils # 8.53 10^3/uL (1.8-7.7); Nucleated Red Blood Cells % 0 %; Platelet Count 321 10^3/cmm (130-400); Red Blood Count 4.78 10^6/uL (4.1-5.3); Red Cell Distribution Width 12.9 % (12.1-15.1); White Blood Count 11.9 10^3/uL (4.0-10.0)
[2021-03-28 14:00] VITALS: BP 132/83; PULSE 103; RESP 18; TEMP 37.1; O2SAT 99
[2021-03-28] MEDS: OLANZapine 5 mg ODT PO (17:53)
[2021-03-28] MEDS: fluticasone nasal spray 16gm Btl 2 SPRAY NASAL (17:53)
[2021-03-28] MEDS: hyDROXYzine 25 mg Capsule 50 MG PO (17:53)
[2021-03-28] MEDS: trazodone 100 mg Tablet PO (19:59)
[2021-03-28 20:43] VITALS: BP 132/83; PULSE 109; RESP 17; TEMP 36.6; O2SAT 97
--- NOTE | 2021-03-28 21:37 | PC.NURSE ---
Patient presents to nurses desk stating, can you give me something for a headache. rated pain 7-8/10, medicated with PRN Tyelnol.
[2021-03-29 06:00] VITALS: RESP 15
[2021-03-29] MEDS: lanolin oint 7 gm 1 APPLIC TOPICAL (07:13)
[2021-03-29] MEDS: paliperidone ER 6 mg Tablet PO (08:54)
[2021-03-29] MEDS: sertraline 100 mg Tablet 200 MG PO (08:54)
[2021-03-29] MEDS: lithium carbonate 300 mg Capsule PO ×3 (09:13→20:05)
[2021-03-29] MEDS: hyDROXYzine 25 mg Capsule 50 MG PO (09:13)
[2021-03-29] MEDS: nicotine 21 mg Patch 1 PATCH TRANSDERMA (09:14)
[2021-03-29] MEDS: acetaminophen 325 mg Tablet 650 MG PO ×2 (09:33→20:03)
[2021-03-29] MEDS: OLANZapine 5 mg ODT PO (09:36)
--- NOTE | 2021-03-29 11:21 | W.PM.NPUPNS ---
Subjective NPU Subjective: Interval history: She continues to be very needy. She is at the nurses window very often. She again asked me about her toe which hurts because it had a needlestick in it some years ago. She says that she is very anxious today because her ex boyfriend moved into her apartment because he was kicked out of his apartment. Her boyfriend has already moved out. They will be the first day on lithium 300 mg 3 times a day. Mental Status Exam MSE Comments: This is an obese white female in hospital scrubs with limited grooming and eye contact. No abnormal movements except for psychomotor retardation. Cooperative with exam in mild distress. Speech was more normal rate and less decreased volume at times with clearer speech that felt less pressured. Mood described anxious. Thought process more organized she mostly stayed on topic. Thought content: Patient denied suicidal or homicidal ideation, there were no delusions reported but she seemed to have somatic as well as paranoid delusions, she did not report auditory or visual. Attention and concentration were limited and memory was unreliable but none were formally tested. She is alert and oriented times person and place. Insight and judgment are impaired, impulse control is impaired. Cognition: Patient Appearance: Appropriate Level of Consciousness: Awake, Alert and Follows Commands Patient Cognition Impaired: Yes Ability to Follow Directions: Good Patient Orientation (long list): Person and Name Hallucination Type: None Delusion Description: Paranoid Ideation and Persecutory Thought Process: Circumstantial Affect: Affect Description: Labile Behavior: Patient Behavior: Somatic Speech Pattern: Garbled Vitals/I&O/Wt Last Vital Signs Temp 97.9 F 03/28/21 20:43 Pulse 109 H 03/28/21 20:43 Resp 15 03/29/21 06:00 BP 132/83 03/28/21 20:43 Pulse Ox 97 03/28/21 20:43 Data NPU : 03/28/21 09:53 03/26/21 13:01 Micro: Microbiology 03/27/21 13:15 Urine Culture - Final Urine,Clean Catch Microbiology 03/27/21 13:15 Urine,Clean Catch Urine Culture - Final A&P Assessment and plan (1) Acute psychosis: Status: Acute (2) Altered mental status: Status: Acute Qualifiers: Altered mental status type: delirium Qualified Code(s): R41.0 - Disorientation, unspecified (3) Cannabis abuse: Status: Acute Additional A&P Information (1) Acute psychosis: (2) Altered mental status: (3) Cannabis abuse: Additional A&P Information This is a 25-year-old female who appears to have had an acute psychotic episode or delirium. We do not have that information about her past history. She says that anxiety is her biggest problem. She might have had a past diagnosis for psychosis and bipolar disorder. Plan: 1. Continue current medications. Now on Invega 6 mg p.o. daily as main antipsychotic. increasing lithium gradually to 300 mg TID. Zoloft 200 mg daily 2. Continue every 15 minute checks for safety. 3. Encourage individual, group and milieu therapies. 4. Encourage sober living treatment after discharge at the highest level of care to which she is willing to commit. 5. We will monitor for safety for herself in the community prior to discharge. Placed on 21-day hold 6. We will evaluate laboratory findings Involuntary Hold Information 96 Hour Hold: 96 Hour Involuntary Admission: Yes 96 Hour Hold Ending Date: 03/14/21 96 Hour Hold Ending Time: 00:01 Attestations NPU Medical Necessity Statement*: Inpatient hospitalization is medically necessary and the clinically appropriate intervention at this time. We will initiate medications and make changes as indicated. Coding Level of Care Code Acute Instructor Wastewater [employer] Plant for Jamel Wilson Diagnoses Acute psychosis F23 Altered mental status R41.0 Altered mental status type: delirium Cannabis abuse F12.10
[2021-03-29] MEDS: fluticasone nasal spray 16gm Btl 2 SPRAY NASAL (12:17)
[2021-03-29 14:00] VITALS: BP 121/77; PULSE 103; RESP 18; TEMP 36.9; O2SAT 99
[2021-03-29] MEDS: ziprasidone hcl 20 mg Capsule PO (20:05)
[2021-03-29] MEDS: trazodone 100 mg Tablet PO (20:05)
[2021-03-29 20:35] VITALS: BP 134/88; PULSE 116; RESP 16; O2SAT 95
[2021-03-30 06:00] VITALS: RESP 16; BMI 34.1
--- NOTE | 2021-03-30 07:19 | W.PM.NPUPNS ---
Subjective NPU Subjective: Interval history: He said that the lithium 3 times a day yesterday seemed to help decrease her anxiety. She was able to talk with her ex-boyfriend who brought her some slippers and a sweater. She said that her mind was still thinking about too many things but it seemed to have been calmed down somewhat with the lithium. She took some Vistaril and Zydis in the morning but did not require other as needed medications. She talked again about the pain in her toe. She says that she has used ibuprofen too much when she was a child and that does not work for her. She would like to try something else. Tylenol does not do much. Mental Status Exam MSE Comments: This is an obese white female in hospital scrubs with limited grooming and eye contact. No abnormal movements except for psychomotor retardation. Cooperative with exam in mild distress. Speech was more normal rate and less decreased volume at times with clearer speech that felt less pressured. Mood described anxious. Thought process more organized she mostly stayed on topic. Thought content: Patient denied suicidal or homicidal ideation, there were no delusions reported but she seemed to have somatic as well as paranoid delusions, she did not report auditory or visual. Attention and concentration were limited and memory was unreliable but none were formally tested. She is alert and oriented times person and place. Insight and judgment are impaired, impulse control is impaired. Cognition: Patient Appearance: Appropriate Level of Consciousness: Awake, Alert and Follows Commands Patient Cognition Impaired: Yes Ability to Follow Directions: Good Patient Orientation (long list): Person and Name Hallucination Type: None Delusion Description: Paranoid Ideation and Persecutory Thought Process: Circumstantial Behavior: Patient Behavior: Appropriate Speech Pattern: Clear Vitals/I&O/Wt Last Vital Signs Temp 98.4 F 03/29/21 14:00 Pulse 116 H 03/29/21 20:35 Resp 16 03/30/21 06:00 BP 134/88 03/29/21 20:35 Pulse Ox 95 03/29/21 20:35 Weight last 48 hrs Weight 81.919 kg Data NPU : 03/28/21 09:53 03/26/21 13:01 Micro: Microbiology 03/27/21 13:15 Urine Culture - Final Urine,Clean Catch Microbiology 03/27/21 13:15 Urine,Clean Catch Urine Culture - Final A&P Assessment and plan (1) Acute psychosis: Status: Acute (2) Altered mental status: Status: Acute Qualifiers: Altered mental status type: delirium Qualified Code(s): R41.0 - Disorientation, unspecified (3) Cannabis abuse: Status: Acute Additional A&P Information (1) Acute psychosis: (2) Altered mental status: (3) Cannabis abuse: Additional A&P Information This is a 25-year-old female who appears to have had an acute psychotic episode or delirium. We do not have that information about her past history. She says that anxiety is her biggest problem. She might have had a past diagnosis for psychosis and bipolar disorder. Plan: 1. Continue current medications. Now on Invega 6 mg p.o. daily as main antipsychotic. lithium 300 mg TID. Zoloft 200 mg daily. Naproxen 500 mg twice a day as needed for pain 2. Continue every 15 minute checks for safety. 3. Encourage individual, group and milieu therapies. 4. Encourage sober living treatment after discharge at the highest level of care to which she is willing to commit. 5. We will monitor for safety for herself in the community prior to discharge. Placed on 21-day hold 6. We will evaluate laboratory findings Involuntary Hold Information 96 Hour Hold: 96 Hour Involuntary Admission: Yes 96 Hour Hold Ending Date: 03/14/21 96 Hour Hold Ending Time: 00:01 Attestations U Medical Necessity Statement*: Inpatient hospitalization is medically necessary and the clinically appropriate intervention at this time. We will initiate medications and make changes as indicated. Coding Level of Care Code Acute Airworthiness Safety Inspector for Jamel Wilson Diagnoses Acute psychosis F23 Altered mental status R41.0 Altered mental status type: delirium Cannabis abuse F12.10
[2021-03-30] MEDS: ziprasidone hcl 20 mg Capsule PO ×2 (07:32→18:15)
[2021-03-30] MEDS: OLANZapine 5 mg ODT PO (07:32)
[2021-03-30] MEDS: lithium carbonate 300 mg Capsule PO ×3 (09:14→22:26)
[2021-03-30] MEDS: paliperidone ER 6 mg Tablet PO (09:14)
[2021-03-30] MEDS: nicotine 21 mg Patch 1 PATCH TRANSDERMA (09:14)
[2021-03-30] MEDS: sertraline 100 mg Tablet 200 MG PO (09:14)
[2021-03-30 13:55] VITALS: BP 122/84; PULSE 101; RESP 17; TEMP 36.9; O2SAT 98
[2021-03-30] MEDS: acetaminophen 325 mg Tablet 650 MG PO (14:59)
[2021-03-30] MEDS: hyDROXYzine 25 mg Capsule 50 MG PO ×2 (15:51→23:15)
[2021-03-30 22:00] VITALS: BP 136/84; PULSE 106; RESP 15; O2SAT 98
[2021-03-30] MEDS: trazodone 100 mg Tablet PO (22:26)
[2021-03-30] MEDS: ibuprofen 800 mg tablet PO (22:28)
[2021-03-30] MEDS: blistex lip oint 7 gm Tube 1 APPLIC TOPICAL (22:29)
[2021-03-31 06:00] VITALS: BP 120/80; PULSE 104; RESP 15; TEMP 36.8; O2SAT 97
--- NOTE | 2021-03-31 08:29 | P.NPUPN_ITS ---
Subjective NPU Subjective: Interval history: He said that the lithium 3 times a day has really helped. She said that her mind was still thinking about too many things but it seemed to have been calmed down somewhat with the lithium. She took some Vistaril and Zydis in the morning but did not require other as needed medications. She requests a knee brace. She says that she hurt it when she f ell out the tub on the day she went to the ER. Yesterday she took the Zyprexa Zydis at 7 AM and Vistaril and Geodon in the evening. She said that she is somewhat anxious today and was going to ask for some Vistaril now. She wanted to know what services are available at [facility] and definitely wants to have therapy there. Mental Status Exam MSE Comments: This is an obese white female in hospital scrubs with limited grooming and eye contact. No abnormal movements except for psychomotor retardation. Cooperative with exam in mild distress. Speech was more normal rate and less decreased volume at times with clearer speech that felt less pressured. Mood described anxious. Thought process more organized she mostly stayed on topic. Thought content: Patient denied suicidal or homicidal ideation, there were no delusions reported but she seemed to have somatic as well as paranoid delusions, she did not report auditory or visual. Attention and concentration were limited and memory was unreliable but none were formally tested. She is alert and oriented times person and place. Insight and judgment are impaired, impulse control is impaired. Cognition: Patient Appearance: Appropriate Level of Consciousness: Awake, Alert and Follows Commands Patient Cognition Impaired: Yes Ability to Follow Directions: Good Patient Orientation (long list): Person, Place and Name Hallucination Type: None Delusion Description: Paranoid Ideation and Persecutory Thought Process: Circumstantial and Disorganized Affect: Affect Description: Appropriate Behavior: Patient Behavior: Appropriate Speech Pattern: Appropriate Vitals/I&O/Wt Last Vital Signs Temp 98.2 F 03/31/21 06:00 Pulse 104 H 03/31/21 06:00 Resp 15 03/31/21 06:00 BP 120/80 03/31/21 06:00 Pulse Ox 97 03/31/21 06:00 Weight last 48 hrs Weight 81.919 kg Data NPU : 03/28/21 09:53 03/26/21 13:01 A&P Assessment and plan (1) Acute psychosis: Status: Acute (2) Altered mental status: Status: Acute Qualifiers: Altered mental status type: delirium Qualified Code(s): R41.0 - Disorientation, unspecified (3) Cannabis abuse: Status: Acute Additional A&P Information (1) Acute psychosis: (2) Altered mental status: (3) Cannabis abuse: Additional A&P Information This is a 25-year-old female who appears to have had an acute psychotic episode or delirium. We do not have that information about her past history. She says that anxiety is her biggest problem. She might have had a past diagnosis for psychosis and bipolar disorder. Plan: 1. Continue current medications. Now on Invega 6 mg p.o. daily as main antipsychotic. lithium 300 mg TID. Zoloft 200 mg daily. Naproxen 500 mg twice a day as needed for pain 2. Continue every 15 minute checks for safety. 3. Encourage individual, group and milieu therapies. 4. Encourage sober living treatment after discharge at the highest level of care to which she is willing to commit. 5. We will monitor for safety for herself in the community prior to discharge. Placed on 21-day hold 6. We will evaluate laboratory findings Involuntary Hold Information 96 Hour Hold: 96 Hour Involuntary Admission: Yes 96 Hour Hold Ending Date: 03/14/21 96 Hour Hold Ending Time: 00:01 Attestations NPU Medical Necessity Statement*: Inpatient hospitalization is medically necessary and the clinically appropriate intervention at this time. We will initiate medications and make changes as indicated. Coding Level of Care Code Acute Ultra Sound Technician for Jamel Wilson Diagnoses Acute psychosis F23 Altered mental status R41.0 Altered mental status type: delirium Cannabis abuse F12.10
[2021-03-31] MEDS: lithium carbonate 300 mg Capsule PO ×3 (08:36→20:55)
[2021-03-31] MEDS: hyDROXYzine 25 mg Capsule 50 MG PO ×3 (08:36→20:55)
[2021-03-31] MEDS: sertraline 100 mg Tablet 200 MG PO (08:37)
[2021-03-31] MEDS: nicotine 21 mg Patch 1 PATCH TRANSDERMA (08:37)
[2021-03-31] MEDS: fluticasone nasal spray 16gm Btl 2 SPRAY NASAL (08:37)
[2021-03-31] MEDS: paliperidone ER 6 mg Tablet PO (08:37)
[2021-03-31] MEDS: blistex lip oint 7 gm Tube 1 APPLIC TOPICAL (09:02)
--- NOTE | 2021-03-31 10:43 | NPU.GN ---
[facility] Unit Group Topic:Depression/ Anxiety [place] General Mood of Group: Cathy did attend and participate in group this morning . Her hygiene is good and was more mentally and emotionally stable this morning.
[2021-03-31] MEDS: naproxen 500 mg Tablet PO (11:03)
[2021-03-31 14:00] VITALS: BP 132/79; PULSE 103; RESP 17; TEMP 37.1; O2SAT 97
[2021-03-31] MEDS: trazodone 100 mg Tablet PO (20:55)
[2021-03-31 22:00] VITALS: BP 126/80; PULSE 101; RESP 17; TEMP 36.1; O2SAT 96
[2021-04-01 05:55] VITALS: BP 100/65; PULSE 87; RESP 16; TEMP 36.9; O2SAT 97
[2021-04-01] MEDS: naproxen 500 mg Tablet PO (07:35)
[2021-04-01] MEDS: fluticasone nasal spray 16gm Btl 2 SPRAY NASAL (08:06)
[2021-04-01] MEDS: blistex lip oint 7 gm Tube 1 APPLIC TOPICAL (08:06)
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
[2021-04-01 08:20] VITALS: BP 100/65; PULSE 87; RESP 16; TEMP 36.9; O2SAT 97
[2021-04-01] MEDS: sertraline 100 mg Tablet 200 MG PO (09:14)
[2021-04-01] MEDS: paliperidone ER 6 mg Tablet PO (09:14)
[2021-04-01] MEDS: hyDROXYzine 25 mg Capsule 50 MG PO (09:14)
[2021-04-01] MEDS: nicotine 21 mg Patch 1 PATCH TRANSDERMA (09:14)
[2021-04-01] MEDS: lithium carbonate 300 mg Capsule PO (09:14)
[2021-04-01] MEDS: polyethylene glycol 3350 Pkt 17 gm PO (09:14)
--- NOTE | 2021-04-01 11:06 | NPU.GN ---
[facility] Unit Group Topic:[place] Word Search General Mood of Group: Cathy did attend and participate in group today. Hygiene was good and she was social. Today was the most that this technical publications writer has seen the patient be lucid and coherent with socialization and in the present moment. Patients mental health seems to be more stable at this time.
== END 2021-04-01 13:08 | disposition home or self-care (01) | DRG 885 ==
LOC: ER 03-08 03:55 → ICU 03-08 04:10 → NP 03-09 16:24
PROVIDERS: Emergency Medicine; Internal Medicine; Psychiatry & Neurology Psychiatry; Admitting Provider Hospitalist; Emergency Provider Emergency Medicine; PCP Family Medicine; Visit Provider Psychiatry & Neurology Psychiatry
DX: F23 Brief psychotic disorder (principal); E87.6 Hypokalemia; F12.10 Cannabis abuse, uncomplicated; F15.90 Other stimulant use, unspecified, uncomplicated
CPT/HCPCS: 36415; 36416; 36600; 51701; 70450; 71045; 80048; 80053; 80074; 80306; 80307; 80371; 81001; 82140; 82248; 82693; 82803; 82962; 83690; 83735; 84439; 84443; 84703; 85025; 87086; 87806; 90471; 90686; 93005; 96365; 96367; 97150; 97165; 99285; J1630; J2060; J2405; J3475; J7030; Q0162

== ENCOUNTER 2021-08-27 12:09 | Emergency (ER) | payer MEDICAID, SELFPAY ==
[2021-08-27 12:14] VITALS: BP 114/72; PULSE 94; RESP 18; TEMP 36.8; O2SAT 98; BMI 41.5
--- NOTE | 2021-08-27 12:28 | US_ITS ---
WS: [id number] ULTRASOUND EARLY TECHNIQUE: Transabdominal sonography of the pelvis was performed. Followed by transvaginal sonography to better evaluate the uterus and ovaries. CLINICAL INFORMATION: -unknown gestational age; L pelvic pain LMP: 06/29/2021 Beta hCG: Unknown. COMPARISON: None. FINDINGS: UTERUS AND GESTATIONAL SAC Intrauterine gestations:Intrauterine gestational sac with yolk sac. No visualized pole in this very early . Mean gestational sac diameter: 0.9 cm; Estimated gestational age: 5w6d Yolk sac: 0.2 cm. Subchorionic hemorrhage: None. OVARIES Right ovary: Lobulated RIGHT ovarian cyst measuring 1.3 x 1.6 x 1.2 cm Left ovary: Normal. FREE FLUID None. US/US OB <=14 wk fetus w transvag IMPRESSION: 1. Intrauterine gestational sac with yolk sac. No visualized pole in thi s very early . Recommend short interval follow-up and correlation with beta-hCG. 2. Both ovaries are normal in appearance. RIGHT ovarian cyst measuring 1.3 x 1 .6 x 1.2 cm 3. No free fluid in the cul-de-sac.
--- NOTE | 2021-08-27 12:29 | ED_ITS ---
HPI - Abdominal Pain General: Chief Complaint: Abdominal Pain Stated Complaint: abdominal pain/diarrhea/dizziness/vomiting Time Seen by Provider: 08/27/21 12:12 Source: patient Mode of arrival: ambulatory Limitations: no limitations History of Present Illness: Patient is a nice 25-year-old female presents to ED today with a complaint of left lower abdominal/pelvic pain over the past week. Patient states she has had fairly constant discomfort with intermittent exacerbations. She states she has alternated diarrhea and constipation throughout the week. She has not noticed any bloody or melanotic stools. She states she has had some nausea and vomiting. Emesis is nonbilious and nonbloody. She denies any urinary symptoms. Patient has not had fevers. He denies vaginal bleeding, vaginal odor/discharge, or concerns for STDs. She is monogamous with her boyfriend. Patient was initially evaluated at urgent care and had a UA and urine performed. Urine was positive. Patient states she knew there was a possibility did not suspect . Patient states this would be her first . She states LMP is unknown but thinks possibly towards the end of June. MD elicited complaint: abdominal pain Pertinent past history: none Onset (ago): day(s) Pain Consistency: constant and intermittent Location: LLQ and Pelvis Severity: moderate Migration to: no migration Exacerbating factors: nothing Relieving factors: nothing Associated Symptoms: Reports constipation, diarrhea, nausea and vomiting; Denies chills, dysuria, fever(s), heartburn, hematochezia, hematuria, hematemesis and melena Review of Systems Const: Denies: fever(s), chills, body aches, fatigue or malaise Card: Denies: chest pain Resp: Denies: dyspnea GI: Reports: abdominal pain, nausea, vomiting, diarrhea and constipation; Denies: hematemesis, heartburn, rectal pain, hematochezia or melena : Reports: pelvic pain; Denies: flank pain, dysuria, hematuria, genital lesions, genital pruritis, vaginal odor, vaginal bleeding or vaginal discharge Musc: Denies: neck pain, back pain, extremity pain or joint pain Skin/Breast: Denies: rash Neuro: Denies: headache(s), numbness in extremities, weakness in extremities, sensory changes or difficulty walking PFS ED PFSH: Social History (Reviewed 08/27/21 @ 12:32 by MELA Castillo Smoking and tobacco status: current every day smoker e-cigarettes E-Cigarette Details: vaporizer device and with nicotine E-cig/vape details: Dainy/ one refill. Quit status (tobacco): has tried quititng Number of times tried to quit tobacco: 2 Second hand smoke exposure: Yes Alcohol intake: current Alcohol intake frequency: holidays/special occasions only Physical Exam Const: COMMON NORMALS: no acute distress, patient oriented x3, no limitations and alert GENERAL APPEARANCE: cooperative NUTRITIONAL APPEARANCE: obese morbidly obese ORIENTATION/CONSCIOUSNESS: Yes awake, Yes oriented to person, Yes oriented to place and Yes oriented to time Resp: COMMON NORMALS: normal respiratory effort and clear to auscultation bilaterally AUSCULTATION: clear to auscultation bilaterally Cardio: COMMON NORMALS: regular rate and regular rhythm RATE: regular rate RHYTHM: regular rhythm GI: COMMON NORMALS: Normal to inspection, nondistended, normoactive bowel sounds present, Soft to palpation, No hepatosplenomegaly present and no masses INSPECTION: Yes normal to inspection PALPATION: Yes Soft to palpation, Yes Tenderness to palpation present (GI) (L lower abdomen/pelvis), No Guarding due to palpation present (GI), No Rigid due to palpation and Yes No hepatosplenomegaly present : COMMON NORMALS: Yes no CVA tenderness BLADDER/KIDNEY EXAM: Yes no CVA tenderness Back/Pelvis: COMMON NORMALS: no CVA tenderness, thoracic and lumbar spine normal to inspection, no thoracic nor lumbar tenderness and thoraco-lumbar ROM normal Extremity: COMMON NORMALS: normal to inspection GENERAL: Yes normal exam except as noted Neuro: RENEE COMA SCALE: document GCS findings [place] coma scale eye opening: Spontaneous Renee coma scale verbal response: Orientated [place] coma scale motor response: Obey commands [place] coma scale total score: 15 COMMON NORMALS: patient oriented x3, moves all extremities, no focal motor deficits, no sensory deficits noted and gait normal SENSORIUM/ORIENTATION: Yes alert, Yes oriented to person, Yes oriented to place and Yes oriented to time Skin: COMMON NORMALS: no rashes or lesions noted GENERAL SKIN EXAM: no rashes or lesions noted Course Vital Signs: Vital signs: Vital Signs Temperature 98.2 F 08/27/21 12:14 Pulse Rate 70 08/27/21 15:27 Respiratory Rate 16 08/27/21 15:27 Blood Pressure 142/84 08/27/21 15:27 Pulse Oximetry 98 08/27/21 12:14 MDM - Abdominal Pain Medical Decision Making Patient here with left lower abdominal/pelvic discomfort. She had a positive test at urgent care this referred to the ED for further evaluation. US obtained to rule out ectopic. She does have an intrauterine gestational sac with yolk sac however no visualized pole was present. She is unsure on LMP. hCG today roughly 8800. We will have this repeated in 48 hours and recommend follow-up with the women[facility] health clinic so they can repeat ultrasound. Information was placed with case management for this. Blood work is unremarkable here. UA performed at urgent care reviewed and was negative. Patient does not have any guarding or rigidity on her abdominal exam. I do not have any concerns for acute abdomen. Recommend conservative treatment at home. Return to ED precautions given. Lab Data : 08/27/21 13:05 08/27/21 13:05 Labs/Radiology: Radiology Impressions Obstetrics Ultrasound 08/27/21 12:28 IMPRESSION: 1. Intrauterine gestational sac with yolk sac. No visualized pole in this very early . Recommend short interval follow-up and correlation with beta-hCG. 2. Both ovaries are normal in appearance. RIGHT ovarian cyst measuring 1.3 x 1.6 x 1.2 cm 3. No free fluid in the cul-de-sac. Laboratory Results WBC 9.2 10^3/uL (4.0-10.0) 08/27/21 13:05 RBC 4.52 10^6/uL (4.1-5.3) 08/27/21 13:05 Hgb 13.6 g/dL (11.5-15.3) 08/27/21 13:05 Hct 40.4 % (37.0-47.0) 08/27/21 13:05 MCV 89.4 fl (81-99) 08/27/21 13:05 MCH 30.1 pg (28.0-34.0) 08/27/21 13:05 MCHC 33.7 g/dL (30.0-36.0) 08/27/21 13:05 RDW 12.6 % (12.1-15.1) 08/27/21 13:05 Plt Count 312 10^3/cmm (130-400) 08/27/21 13:05 MPV 8.8 fL (7.4-10.4) 08/27/21 13:05 Neut % (Auto) 64.6 % 08/27/21 13:05 Lymph % (Auto) 24.9 % 08/27/21 13:05 [place] % (Auto) 6.7 % 08/27/21 13:05 Eos % (Auto) 2.9 % 08/27/21 13:05 Baso % (Auto) 0.5 % 08/27/21 13:05 Neut # (Auto) 5.91 10^3/uL (1.8-7.7) 08/27/21 13:05 Lymph # (Auto) 2.3 10^3/uL (0.8-4.8) 08/27/21 13:05 [place] # (Auto) 0.6 10^3/uL (0.2-0.9) 08/27/21 13:05 Eos # (Auto) 0.3 10^3/uL (0.0-0.8) 08/27/21 13:05 Baso # (Auto) 0.1 10^3/uL (0.0-0.1) 08/27/21 13:05 Nucleated RBC % (auto) 0 % 08/27/21 13:05 Nucleated RBCs # 0.0 /100WBC 08/27/21 13:05 Sodium 135 mmol/L (136-145) L 08/27/21 13:05 Potassium 3.8 mmol/L (3.5-5.1) 08/27/21 13:05 Chloride 104 mmol/L (98-107) 08/27/21 13:05 Carbon Dioxide 19 mmol/L (22-29) L 08/27/21 13:05 Anion Gap 15.8 (5-19) 08/27/21 13:05 BUN 5 mg/dL (6-20) L 08/27/21 13:05 Creatinine 0.4 mg/dL (0.5-0.9) L 08/27/21 13:05 GFR Calculation 197.8 mL/min (90-130) H 08/27/21 13:05 Glucose 94 mg/dL (65-115) 08/27/21 13:05 Calculated Osmolality 277 mOsm/kg (285-295) L 08/27/21 13:05 Calcium 8.8 mg/dL (8.5-10.5) 08/27/21 13:05 Total Bilirubin 0.3 mg/dL (0.15-1.2) 08/27/21 13:05 AST 12 U/L (0-32) 08/27/21 13:05 ALT 12 U/L (0-33) 08/27/21 13:05 Alkaline Phosphatase 82 IU/L (35-105) 08/27/21 13:05 Total Protein 6.8 g/dL (6.6-8.7) 08/27/21 13:05 Albumin 4.1 g/dL (3.5-5.2) 08/27/21 13:05 Globulin 2.7 g/dL (1.3-4.6) 08/27/21 13:05 Lipase 11 U/L (13-60) L 08/27/21 13:05 Ser , Semi-Qnt 8799.00 mIU/mL 08/27/21 13:05 Discharge Plan Discharge Patient Disposition: Home Clinical Impression: Qualifiers: Weeks of gestation: less than 8 weeks Qualified Code(s): Z3A.01 - Less than 8 weeks gestation of Condition: Stable Prescriptions: No Action sertraline [Zoloft] 50 mg tablet 50 mg PO DAILY Qty: 30 0RF trazodone 100 mg tablet 100 mg PO BEDTIME 30 Days Qty: 30 0RF paliperidone 3 mg tablet extended release 24hr 3 mg PO QAM Qty: 30 0RF hydroxyzine HCl 50 mg tablet 50 mg PO QID PRN (Reason: anxiety) Qty: 120 0RF Discharge Orders: Discharge ED (Routine); Ordered 08/27/21 Ordered By: Divine Sherman Referrals: Yoshi Alaniz, [Primary Care Provider] - Activity Restrictions/Additional Instructions: As we discussed case management should contact you shortly to set you up with a follow-up appointment for an [facility] provider [facility]. You have been given outpatient orders for repeat hCG in 48 hours to make sure this is progressing normally. As we discussed they did not see a heart rate on your ultrasound today however this could be secondary to being too early. You need to return to the emergency department for worsening abdominal/pelvic pain, severe vaginal bleeding, fevers, lightheadedness/dizziness/passing out episodes, or any other concerns you may have. Stand Alone Forms: Work/School Release Coding Level of Care Code ED Supervisor [employer]ip[employer] Placing for Jamel Fwd Exam Comprehensive
[2021-08-27 13:27] LABS: Basophils # 0.1 10^3/uL (0.0-0.1); Basophils % 0.5 %; Eosinophils # 0.3 10^3/uL (0.0-0.8); Eosinophils % 2.9 %; Hematocrit 40.4 % (37.0-47.0); Hemoglobin 13.6 g/dL (11.5-15.3); Lymphocytes # 2.3 10^3/uL (0.8-4.8); Lymphocytes % 24.9 %; Mean Corpuscular HGB Conc 33.7 g/dL (30.0-36.0); Mean Corpuscular Hemoglobin 30.1 pg (28.0-34.0); Mean Corpuscular Volume 89.4 fl (81-99); Mean Platelet Volume 8.8 fL (7.4-10.4); Monocytes # 0.6 10^3/uL (0.2-0.9); Monocytes % 6.7 %; Neutrophils # 5.91 10^3/uL (1.8-7.7); Neutrophils % 64.6 %; Nucleated Red Blood Cells % 0 %; Platelet Count 312 10^3/cmm (130-400); Red Blood Count 4.52 10^6/uL (4.1-5.3); Red Cell Distribution Width 12.6 % (12.1-15.1); White Blood Count 9.2 10^3/uL (4.0-10.0)
[2021-08-27 13:56] LABS: Alanine Aminotransferase 12 U/L (0-33); Albumin Level 4.1 g/dL (3.5-5.2); Alkaline Phosphatase 82 IU/L (35-105); Anion Gap 15.8 (5-19); Aspartate Amino Transferase 12 U/L (0-32); Blood Urea Nitrogen 5 mg/dL (6-20); Calcium 8.8 mg/dL (8.5-10.5); Carbon Dioxide 19 mmol/L (22-29); Chloride 104 mmol/L (98-107); Globulin 2.7 g/dL (1.3-4.6); Glomerular Filtration Rate 197.8 mL/min (90-130); Glucose 94 mg/dL (65-115); Lipase 11 U/L (13-60); Osmolality Calculated 277 mOsm/kg (285-295); Potassium 3.8 mmol/L (3.5-5.1); Sodium 135 mmol/L (136-145); Total Bilirubin 0.3 mg/dL (0.15-1.2); Total Protein 6.8 g/dL (6.6-8.7)
[2021-08-27 15:27] VITALS: BP 142/84; PULSE 70; RESP 16
--- NOTE | 2021-08-28 09:51 | DCPLANNER ---
Addendum entered by Cara Zheng 10/31/21 16:57: A voicemail had been left for patient to call and schedule appointment. Addendum entered by Cara Zheng 10/31/21 16:55: Appointment cancelled Original Note: human resources operations manager had message to schedule a follow up appointment for patient with [facility]. human resources operations manager sent patients information to the front office staff at [facility]. Patients information will be printed and reviewed. Clinic will call patient with appointment information.
== END 2021-08-27 15:29 | disposition home or self-care (01) ==
PROVIDERS: Emergency Provider Physician Assistant; PCP Family Medicine
DX: O99.331 Smoking (tobacco) complicating pregnancy, first trimester (principal); F17.290 Nicotine dependence, other tobacco product, uncomplicated; Z3A.00 Weeks of gestation of pregnancy not specified
CPT/HCPCS: 76801; 76817; 80053; 81000; 81025; 83690; 84702; 85025; 99283

== ENCOUNTER 2021-08-29 10:39 | Outpatient (CLI) | payer MEDICAID, SELFPAY | END 2021-08-29 10:40 | disposition home or self-care (01) | PROVIDERS: PCP Family Medicine; Visit Provider Physician Assistant | DX: Z32.00 Encounter for pregnancy test, result unknown (principal) | CPT/HCPCS: 84702 ==

== ENCOUNTER 2021-09-21 09:52 | Emergency (ER) | payer MEDICAID, SELFPAY ==
[2021-09-21 09:58] VITALS: BP 119/77; PULSE 84; RESP 16; TEMP 37.1; O2SAT 97; BMI 21.7
--- NOTE | 2021-09-21 10:37 | W.ED.NAVMDI ---
HPI - Nausea/Vomiting/Diarrhea General: Chief complaint: Nausea/Vomiting/Diarrhea Stated complaint: vomiting/9 weeks Time Seen by Provider: 09/21/21 10:08 Source: patient Mode of arrival: ambulatory Limitations: no limitations History of Present Illness: 25-year-old female who is G1, P0 at 9 weeks gestation presents with persistent nausea and vomiting. States has not been able to keep much down for the last 48 hours. She is not taking anything for it. She is not yet established with a central office supervisor. She was on several psych meds including hydroxyzine paliperidone sertraline and trazodone all of these were stopped after it was discovered she was . She denies any hematemesis, cramps no dysuria urgency or frequency. She had been having difficulty with morning sickness but was usually throwing up 2-3 times in the morning this has been more intense and prolonged MD elicited complaint: nausea and vomiting Pertinent past history: other ( state) Onset (ago): day(s) (2) Description of vomiting: food contents and watery Associated nausea: Yes Location of pain: Epigastric Pain consistency: intermittent Severity: moderate Quality: cramping Exacerbating factors: eating Relieving factors: none Associated symtoms: Reports nausea; Denies altered mental status, anxiety, bloating, change in vision, chest pain, cough, diaphoresis, decreased urine output, dizziness, dysuria, epistaxis, fatigue, fecal incontinence, fevers/chills, headache(s), anorexia, malaise, myalgias, numbness, palpitations, rash, short of breath, syncope, tenesmus, tinnitus or weakness Review of Systems Const: Reports: change in appetite; Denies: fever(s), chills, body aches, fatigue, malaise or diaphoresis Eyes: Denies: change in vision ENMT: Denies: tinnitus or epistaxis Card: Denies: chest pain, palpitations or syncope Resp: Denies: dyspnea, productive cough or non-productive cough GI: Reports: nausea, vomiting and GI cramping; Denies: abdominal pain, hematemesis, coffee ground emesis, dysphagia, heartburn, diarrhea, constipation, bloating or fecal incontinence : Denies: flank pain, difficulty voiding, dysuria, urinary frequency or urinary urgency Skin/Breast: Denies: rash or pruritus Neuro: Denies: headache(s) or dizziness Psych: Denies: anxiety PFSH ED PFSH: Medical History (Updated 09/21/21 @ 11:37 by Tyron Landaverde DO) Cannabis use disorder, severe, dependence Generalized anxiety disorder Major depressive disorder, recurrent severe without psychotic features Post-traumatic stress disorder, chronic Social History Smoking and tobacco status: current every day smoker e-cigarettes E-Cigarette Details: vaporizer device and with nicotine E-cig/vape details: Dainy/ one refill. Quit status (tobacco): has tried quititng Number of times tried to quit tobacco: 2 Second hand smoke exposure: Yes Alcohol intake: current Alcohol intake frequency: holidays/special occasions only Physical Exam Const: EXAM LIMITATIONS: no altered mental status GENERAL APPEARANCE: cooperative and comfortable ORIENTATION/CONSCIOUSNESS: Yes awake, Yes oriented to person, Yes oriented to place and Yes oriented to time HENMT: COMMON NORMALS: normocephalic, atraumatic, hearing grossly normal bilaterally, external ears normal, EAC's normal, TM's normal bilaterally, Normal nasal mucous membranes and turbinates present, moist oral mucous membranes and oropharynx normal HEAD & SCALP: normocephalic and atraumatic NOSE: Normal nasal mucous membranes and turbinates present EXTERNAL EAR: Yes external ears normal EXTERNAL AUDITORY CANAL: EAC's normal TYMPANIC MEMBRANE: TM's normal bilaterally Eye: COMMON NORMALS: Equal, round and reactive pupils present, EOMs intact bilaterally, conjunctivae normal and no scleral icterus CONJUNCTIVA: Yes conjunctivae normal PUPIL: Yes Equal, round and reactive pupils present Neck/C-Spine: COMMON NORMALS: full ROM, no lymphadenopathy, supple and no JVD Lymph: LYMPHATIC: no lymphadenopathy noted and no lymphedema noted Resp: COMMON NORMALS: normal respiratory effort, No retractions, No use of accessory muscles and clear to auscultation bilaterally AUSCULTATION: clear to auscultation bilaterally Cardio: COMMON NORMALS: no JVD, regular rate, regular rhythm and No murmurs present (Cardio) RATE: regular rate RHYTHM: regular rhythm GI: COMMON NORMALS: Soft to palpation and No hepatosplenomegaly present AUSCULTATION: Yes normoactive bowel sounds PALPATION: Yes Soft to palpation, No Tenderness to palpation present (GI), No Guarding due to palpation present (GI) and Yes No hepatosplenomegaly present Extremity: COMMON NORMALS: normal to inspection, capillary refill normal, no clubbing, cyanosis or edema, no calf tenderness and no pedal edema Neuro: SENSORIUM/ORIENTATION: Yes oriented to person, Yes oriented to place and Yes oriented to time Skin: COMMON NORMALS: no rashes or lesions noted GENERAL SKIN EXAM: no rashes or lesions noted Course Vital Signs: Vital signs: Vital Signs Temperature 98.7 F 09/21/21 09:58 Pulse Rate 84 09/21/21 09:58 Respiratory Rate 16 09/21/21 09:58 Blood Pressure 119/77 09/21/21 09:58 Pulse Oximetry 97 09/21/21 09:58 MDM - Nausea/Vomiting/Diarrhea Medical Decision Making Patient improved after IV fluids but not completely resolved. Will discharge her home with Diclegis as well as promethazine to use as needed. Have her follow-up with and establish with obstetrics within the next week. Medical Records I reviewed the patient's medical records. Lab Data I reviewed the patient's lab results. : 09/21/21 10:48 09/21/21 10:48 Laboratory Results WBC 14.2 10^3/uL (4.0-10.0) H 09/21/21 10:48 RBC 4.99 10^6/uL (4.1-5.3) 09/21/21 10:48 Hgb 15.1 g/dL (11.5-15.3) 09/21/21 10:48 Hct 44.8 % (37.0-47.0) 09/21/21 10:48 MCV 89.8 fl (81-99) 09/21/21 10:48 MCH 30.3 pg (28.0-34.0) 09/21/21 10:48 MCHC 33.7 g/dL (30.0-36.0) 09/21/21 10:48 RDW 12.5 % (12.1-15.1) 09/21/21 10:48 Plt Count 315 10^3/cmm (130-400) 09/21/21 10:48 MPV 9.2 fL (7.4-10.4) 09/21/21 10:48 Neut % (Auto) 81.2 % 09/21/21 10:48 Lymph % (Auto) 11.7 % 09/21/21 10:48 [place] % (Auto) 6.1 % 09/21/21 10:48 Eos % (Auto) 0.4 % 09/21/21 10:48 Baso % (Auto) 0.2 % 09/21/21 10:48 Neut # (Auto) 11.54 10^3/uL (1.8-7.7) H 09/21/21 10:48 Lymph # (Auto) 1.7 10^3/uL (0.8-4.8) 09/21/21 10:48 [place] # (Auto) 0.9 10^3/uL (0.2-0.9) 09/21/21 10:48 Eos # (Auto) 0.1 10^3/uL (0.0-0.8) 09/21/21 10:48 Baso # (Auto) 0.0 10^3/uL (0.0-0.1) 09/21/21 10:48 Nucleated RBC % (auto) 0 % 09/21/21 10:48 Nucleated RBCs # 0.0 /100WBC 09/21/21 10:48 Sodium 135 mmol/L (136-145) L 09/21/21 10:48 Potassium 3.6 mmol/L (3.5-5.1) 09/21/21 10:48 Chloride 98 mmol/L (98-107) 09/21/21 10:48 Carbon Dioxide 22 mmol/L (22-29) 09/21/21 10:48 Anion Gap 18.6 (5-19) 09/21/21 10:48 BUN 5 mg/dL (6-20) L 09/21/21 10:48 Creatinine 0.4 mg/dL (0.5-0.9) L 09/21/21 10:48 GFR Calculation 197.8 mL/min (90-130) H 09/21/21 10:48 Glucose 78 mg/dL (65-115) 09/21/21 10:48 Calculated Osmolality 276 mOsm/kg (285-295) L 09/21/21 10:48 Calcium 9.5 mg/dL (8.5-10.5) 09/21/21 10:48 Urine Color Dark yellow (Yellow) 09/21/21 11:16 Urine Appearance Sl hazy (CLEAR) 09/21/21 11:16 Urine pH 6 (5-7) 09/21/21 11:16 Ur Specific [place] 1.025 (1.005-1.030) 09/21/21 11:16 Urine Protein Trace (Negative) 09/21/21 11:16 Urine Glucose (UA) Norm (Normal) 09/21/21 11:16 Urine Ketones 3+ (Negative) H 09/21/21 11:16 Urine Blood Neg (Negative) 09/21/21 11:16 Urine Nitrate Negative (Negative) 09/21/21 11:16 Urine Bilirubin 1+ (Negative) H 09/21/21 11:16 Urine Urobilinogen 4 mg/dL (Negative) H 09/21/21 11:16 Ur Leukocyte Esterase Negative (Negative) 09/21/21 11:16 Urine RBC 0-4 /hpf (0-2) H 09/21/21 11:16 Urine WBC 0-4 /hpf (0-5) H 09/21/21 11:16 Ur Squamous Epith Cells 0-4 /hpf (0-5) H 09/21/21 11:16 Amorphous Sediment Not Reportable 09/21/21 11:16 Urine Bacteria Trace /hpf (NONE) 09/21/21 11:16 Discharge Plan Discharge Patient Disposition: Home Clinical Impression: Hyperemesis gravidarum Condition: Stable Prescriptions: New promethazine 25 mg tablet 25 mg PO Q6H PRN (Reason: nausea and vomiting) Qty: 20 0RF Diclegis 10-10 mg tablet,delayed release (DR/EC) 1 tab PO BID Qty: 90 0RF Rx Instructions: 2 p.o. at bedtime tonight then 1 in AM and 2 at bedtime No Action sertraline [Zoloft] 50 mg tablet 50 mg PO DAILY Qty: 30 0RF trazodone 100 mg tablet 100 mg PO BEDTIME 30 Days Qty: 30 0RF paliperidone 3 mg tablet extended release 24hr 3 mg PO QAM Qty: 30 0RF hydroxyzine HCl 50 mg tablet 50 mg PO QID PRN (Reason: anxiety) Qty: 120 0RF Discharge Orders: Discharge ED (Routine); Ordered 09/21/21 Ordered By: Tyron Landaverde Referrals: Katty,Yoshi W, DO [Primary Care Provider] - Discharge Diet: Clear Liquid Discharge Activity: Increase activity as tolerated Patient Instructions: Opioid Safety Activity Restrictions/Additional Instructions: Clear liquid diet for 24 to 48 hours and advance as tolerated. Start likely just this evening take 1 in the AM 2 at bedtime. Recheck if not improving recommend establishing obstetrical care as soon as you are able. Stand Alone Forms: Work/School Release Coding Level of Care Code ED Stock Car Driver for Chg Fwd Exam Comprehensive
[2021-09-21 10:57] LABS: Basophils % 0.2 %; Eosinophils # 0.1 10^3/uL (0.0-0.8); Eosinophils % 0.4 %; Hematocrit 44.8 % (37.0-47.0); Hemoglobin 15.1 g/dL (11.5-15.3); Lymphocytes # 1.7 10^3/uL (0.8-4.8); Lymphocytes % 11.7 %; Mean Corpuscular HGB Conc 33.7 g/dL (30.0-36.0); Mean Corpuscular Hemoglobin 30.3 pg (28.0-34.0); Mean Corpuscular Volume 89.8 fl (81-99); Mean Platelet Volume 9.2 fL (7.4-10.4); Monocytes # 0.9 10^3/uL (0.2-0.9); Monocytes % 6.1 %; Neutrophils # 11.54 10^3/uL (1.8-7.7); Neutrophils % 81.2 %; Nucleated Red Blood Cells % 0 %; Platelet Count 315 10^3/cmm (130-400); Red Blood Count 4.99 10^6/uL (4.1-5.3); Red Cell Distribution Width 12.5 % (12.1-15.1); White Blood Count 14.2 10^3/uL (4.0-10.0)
[2021-09-21] MEDS: promethazine 25 mg/mL SDV 1 mL IM (11:00)
[2021-09-21 11:19] LABS: Anion Gap 18.6 (5-19); Blood Urea Nitrogen 5 mg/dL (6-20); Calcium 9.5 mg/dL (8.5-10.5); Carbon Dioxide 22 mmol/L (22-29); Chloride 98 mmol/L (98-107); Glomerular Filtration Rate 197.8 mL/min (90-130); Glucose 78 mg/dL (65-115); Osmolality Calculated 276 mOsm/kg (285-295); Potassium 3.6 mmol/L (3.5-5.1); Sodium 135 mmol/L (136-145)
[2021-09-21 11:34] LABS: Add Urine Microscopic? YES; Bilirubin Urine 1+ (Negative); Blood Urine Neg (Negative); Glucose Urine UA Norm (Normal); Ketones Urine 3+ (Negative); Leukocyte Esterase Urine Negative (Negative); Nitrate Urine Negative (Negative); Protein Urine Trace (Negative); Specific Gravity, Urine 1.025 (1.005-1.030); Urine Appearance SL Hazy (CLEAR); Urine Color Dark Yellow (Yellow); Urobilinogen Urine 4 mg/dL (Negative); pH Urine 6 (5-7)
[2021-09-21 11:35] LABS: Bacteria Urine TRACE /hpf; RBC Urine 0-4 /hpf (0-2); Squamous Epithelial Cell Urine 0-4 /hpf (0-5); WBC Urine 0-4 /hpf (0-5)
[2021-09-21 11:36] LABS: Add Urine Culture? No
[2021-09-21] MEDS: sodium chloride 0.9% 1,000 ML 999 ML IV ×2 (11:40→12:27)
--- NOTE | 2021-09-21 11:44 | PC.NURSE ---
Unable to discharge at this time. Pt is finishing first liter of NS and still needs a second liter before she can be released.
== END 2021-09-21 12:51 | disposition home or self-care (01) ==
PROVIDERS: Physician Assistant; Emergency Provider Family Medicine; PCP Family Medicine
DX: O21.0 Mild hyperemesis gravidarum (principal); Z3A.09 9 weeks gestation of pregnancy
CPT/HCPCS: 80048; 81001; 85025; 96360; 96372; 99283; J2550; J7030

== ENCOUNTER 2022-01-07 22:08 | Outpatient (CLI) | payer BC, MEDICAID, SELFPAY ==
[2022-01-07] VITALS (9 sets, daily range): BP systolic 121–130; BP diastolic 78–86; PULSE 93–105; RESP 15–16; TEMP 35.9–36.1; O2SAT 98–99; BMI 37.8
== END 2022-01-07 22:56 | disposition home or self-care (01) ==
LOC: OPOB 22:08 → OBGYN 22:17
PROVIDERS: PCP Family Medicine; Visit Provider Family Medicine
DX: O26.899 Other specified pregnancy related conditions, unspecified trimester (principal); Z3A.00 Weeks of gestation of pregnancy not specified; J02.9 Acute pharyngitis, unspecified; R09.81 Nasal congestion
CPT/HCPCS: 99211

== ENCOUNTER 2022-04-20 01:01 | Inpatient (IN) | payer BC, MEDICAID, SELFPAY ==
[2022-04-20] VITALS (58 sets, daily range): BP systolic 101–175; BP diastolic 54–136; PULSE 59–96; RESP 16–18; TEMP 35.7–37.1; O2SAT 91–100; BMI 44.4
[2022-04-20 01:02] LABS: Basophils # 0.1 10^3/uL (0.0-0.1); Basophils % 0.3 %; Eosinophils # 0.1 10^3/uL (0.0-0.8); Eosinophils % 0.4 %; Hematocrit 36.7 % (37.0-47.0); Hemoglobin 11.8 g/dL (11.5-15.3); Lymphocytes # 2.1 10^3/uL (0.8-4.8); Lymphocytes % 11.4 %; Mean Corpuscular HGB Conc 32.2 g/dL (30.0-36.0); Mean Corpuscular Hemoglobin 27.8 pg (28.0-34.0); Mean Corpuscular Volume 86.4 fl (81-99); Mean Platelet Volume 9.2 fL (7.4-10.4); Monocytes # 0.9 10^3/uL (0.2-0.9); Monocytes % 4.9 %; Neutrophils # 15.09 10^3/uL (1.8-7.7); Neutrophils % 82.3 %; Nucleated Red Blood Cells % 0 %; Platelet Count 363 10^3/cmm (130-400); Red Blood Count 4.25 10^6/uL (4.1-5.3); Red Cell Distribution Width 13.1 % (12.1-15.1); White Blood Count 18.3 10^3/uL (4.0-10.0)
[2022-04-20] MEDS: lactated ringers 1,000 ML 999 ML IV (01:07)
[2022-04-20] MEDS: ondansetron 2 mg/ML SDV 2 mL 4 MG IVP ×2 (01:07→12:05)
[2022-04-20] MEDS: dextrose 5%-lactated ringers 1,000 ML 125 ML IV (02:12)
--- NOTE | 2022-04-20 02:15 | ANES.PREANE2 ---
Pre-Anesthetic Assessment Height/Weight: Height 1.55 m Weight 106.594 kg Temp Pulse Resp BP O2 Del Method 96.4 F L 77 16 141/84 04/20/22 00:27 04/20/22 00:57 04/20/22 00:56 04/20/22 00:57 04/20/22 01:01 Preop Diagnosis: labor epidural Familial anesthetic complications: none Was Beta Yo taken within 24 hours: N/A Was Clonidine taken within 24 hours: N/A Last Intake: 22:30 Social Tobacco (vape) and No alcohol Exam alert, oriented x 3, clear to auscultation bilaterally and regular rate & rhythm Airway Submandibular: within normal limits Cervical ROM: within normal limits Mallampati: Class II Dentition: chipped (front upper, poor) and full Pulmonary None reported CV/HEM None reported None reported Hepatic None reported GI None reported Metabolic Morbid Obesity Musc/skel Lower Back Pain (with ) Neuropsych Anxiety and Depression Anesthetic Plan ASA status: 2 Anesthesia: Regional (specify below) (epidural) Risk of > 500 ml blood loss (7ml/kg in children): No Medications/Allergies Home Medications Medication Instructions Recorded Confirmed Last Taken Type 1 tab PO DAILY 04/20/22 04/20/22 3 Days Ago History ~04/17/22 Allergies Allergy/AdvReac Type Severity Reaction Status Date / Time red (food color) Allergy Unknown ADR-Nausea Verified 04/20/22 01:10 Current Medications Generic Name Dose Route Start Last Admin Trade Name Freq PRN Reason Stop Dose Admin Dextrose/Lactated Ringer's 1,000 mls @ 125 mls/hr 04/20/22 00:56 04/20/22 02:12 Dextrose 5%-Lactated Ringers IV 125 mls/hr .Q8H PRN Administration labor Lactated Ringer's 1,000 mls @ 999 mls/hr 04/20/22 01:00 04/20/22 01:07 Lactated Ringers IV 999 mls/hr .Q1H1M PRN Administration See label comments Ondansetron HCl 4 mg 04/20/22 00:56 04/20/22 01:07 Ondansetron 2 Mg/Ml Sdv 2 Ml IVP 4 mg Q4H PRN Administration NAUSEA AND VOMITING PFSH Anesthesia Medical History (Updated 01/19/22 @ 16:43 by Lydia Amado, [facility]) Generalized anxiety disorder History of marijuana use Major depressive disorder, recurrent severe without psychotic features Nicotine dependence due to vaping tobacco product Post-traumatic stress disorder, chronic Social History (Updated 10/10/21 @ 15:13 by Enrique Su LPN) Smoking and tobacco status: current every day smoker e-cigarettes E-Cigarette Details: vaporizer device and with nicotine E-cig/vape details: Daily or two/ one refill. Quit status (tobacco): has tried quititng Number of times tried to quit tobacco: 2 Second hand smoke exposure: No Alcohol intake: current Alcohol intake frequency: holidays/special occasions only Alcohol type: wine Counseling given: No Female Reproductive History : 1 Data Anesthesia 04/20/22 00:53 Short CBC 04/20/22 Range/Units 00:53 WBC 18.3 H (4.0-10.0) 10^3/uL Hgb 11.8 (11.5-15.3) g/dL Hct 36.7 L (37.0-47.0) % MCV 86.4 (81-99) fl Plt Count 363 (130-400) 10^3/cmm Neut % (Auto) 82.3 % Neut # (Auto) 15.09 H (1.8-7.7) 10^3/uL Cardiac Studies: No Data to Display
--- NOTE | 2022-04-20 03:03 | ANES.PREANE2 ---
Pre-Anesthetic Assessment Height/Weight: Height 1.55 m Weight 106.594 kg Temp Pulse Resp BP Pulse Ox O2 Del Method 96.4 F L 81 16 131/57 99 04/20/22 00:27 04/20/22 02:59 04/20/22 00:56 04/20/22 02:59 04/20/22 02:56 04/20/22 01:01 Preop Diagnosis: labor Medications/Allergies Home Medications Medication Instructions Recorded Confirmed Last Taken Type 1 tab PO DAILY 04/20/22 04/20/22 3 Days Ago History ~04/17/22 Allergies Allergy/AdvReac Type Severity Reaction Status Date / Time red (food color) Allergy Unknown ADR-Nausea Verified 04/20/22 01:10 Current Medications Generic Name Dose Route Start Last Admin Trade Name Freq PRN Reason Stop Dose Admin Dextrose/Lactated Ringer's 1,000 mls @ 125 mls/hr 04/20/22 00:56 04/20/22 02:12 Dextrose 5%-Lactated Ringers IV 125 mls/hr .Q8H PRN Administration labor Lactated Ringer's 1,000 mls @ 999 mls/hr 04/20/22 01:00 04/20/22 01:07 Lactated Ringers IV 999 mls/hr .Q1H1M PRN Administration See label comments Ondansetron HCl 4 mg 04/20/22 00:56 04/20/22 01:07 Ondansetron 2 Mg/Ml Sdv 2 Ml IVP 4 mg Q4H PRN Administration NAUSEA AND VOMITING PFSH Anesthesia Medical History (Updated 01/19/22 @ 16:43 by LYNDON Madrigal) Generalized anxiety disorder History of marijuana use Major depressive disorder, recurrent severe without psychotic features Nicotine dependence due to vaping tobacco product Post-traumatic stress disorder, chronic Social History (Updated 10/10/21 @ 15:13 by Enrique Su LPN) Smoking and tobacco status: current every day smoker e-cigarettes E-Cigarette Details: vaporizer device and with nicotine E-cig/vape details: Daily or two/ one refill. Quit status (tobacco): has tried quititng Number of times tried to quit tobacco: 2 Second hand smoke exposure: No Alcohol intake: current Alcohol intake frequency: holidays/special occasions only Alcohol type: wine Counseling given: No Female Reproductive History : 1 Data Anesthesia 04/20/22 00:53 Short CBC 04/20/22 Range/Units 00:53 WBC 18.3 H (4.0-10.0) 10^3/uL Hgb 11.8 (11.5-15.3) g/dL Hct 36.7 L (37.0-47.0) % MCV 86.4 (81-99) fl Plt Count 363 (130-400) 10^3/cmm Neut % (Auto) 82.3 % Neut # (Auto) 15.09 H (1.8-7.7) 10^3/uL Cardiac Studies: No Data to Display Anesthesia Procedures Epidural Time Out Performed: Yes Consents Signed: Procedure Consent and NPO Consent Consent: requested by attending/covering physician, from patient, risks and benefits reviewed and patient agrees to proceed Lumbar Level: L2-L3 Epidural position: sitting Epidural procedure: sterile prep of area (betadine), 1% lidocaine to numb the area (3ml), 18 g needle, neg for paresthesia, test dose given, 1.5% xylocaine 1:200k epi (3/2), 0.2% Ropivacaine bolus ml (5ml), placed PCEA, no systemic response, sterile dressing applied, L.U.D. no apparent complications and 0.2% Ropiavacaine @ mls/hr (11ml/hr)
[2022-04-20 05:17] LABS: Amphetamines Screen Urine Negative (Negative); Barbiturates Screen Urine Negative (Negative); Benzodiazepines Screen Urine Negative (Negative); Cocaine Screen Urine Negative (Negative); Opiate Screen Urine Negative (Negative); PCP Screen Urine Negative (Negative); THC Screen Urine Positive (Negative)
--- NOTE | 2022-04-20 06:47 | PM.OPHPUD ---
Labor & Delivery H&P Update Date of Procedure: April 20, 2022 Date H&P Performed: 04/16/22 Changes to previous documentation: Spontaneous rupture of membranes Admission Diagnosis: 26-year-old 1 female at 39 weeks estimated gestational age presenting to the hospital in active labor with spontaneous rupture of membranes Preop diagnosis: labor Planned procedure: Spontaneous vaginal delivery Other information: The patient is a 26-year-old female who presented to the hospital complaining of spontaneous rupture of membranes prior to coming to the facility. She was also having consistent contractions and was noted to have cervical change. Her cervix is 6 cm dilated upon arrival to hospital. Otherwise the patient's has been remarkable for being THC positive. Her blood type is O+. Her antibody screen is negative. She passed her glucose screen. She is rubella immune. She is GBS negative she received a pertussis vaccination on June 09. Her infectious disease profile was within normal limits. Related Problem List Diagnoses (1) 39 weeks gestation of : We anticipate routine labor and spontaneous vaginal delivery. (2) History of marijuana use: (3) Nicotine dependence due to vaping tobacco product: A&P Assessment and plan (1) 39 weeks gestation of : Status: Acute (2) History of marijuana use: Status: Chronic (3) Nicotine dependence due to vaping tobacco product: Status: Chronic
--- NOTE | 2022-04-20 07:08 | PM.DELIVERY ---
Delivery Note: Date of delivery: April 20, 2022 Pre-delivery diagnoses: 26-year-old 1 at 39 weeks estimated gestational age presenting in active labor with spontaneous rupture of membranes Post-delivery diagnoses: Status post spontaneous vaginal delivery Procedure: Spontaneous vaginal delivery Delivering Physician: Bridger Raymond Estimated blood loss (mL): 50 Pre-Delivery Course: The patient presented to the hospital with spontaneous rupture of membranes and active labor. She was given an epidural and progressed to complete without difficulty. heart tones did demonstrate some early elevations, but had good variability throughout. Delivery: DELIVERY: The patient progressed to complete without difficulty. She delivered a female with a weight of 5 pounds 15 ounces with Apgars of 9, 9. The baby was delivered from the PRAVEEN position and placed on the mother's abdomen. The cord was then clamped and cut 1 minute after delivery. There was a nuchal cord x1 which was easily reduced before delivering the body. There was no meconium. The placenta and 3 vessel cord were delivered intact shortly thereafter. The perineum and vaginal vault were carefully examined. A first-degree right vaginal wall laceration was noted. Did not require repair both the mother and the baby were in stable condition. Post-Delivery Status: Good A&P Assessment and plan (1) 39 weeks gestation of : The patient had an unremarkable labor and delivery. I am hopeful that she will have an unremarkable course as well. Her drug screen was positive for marijuana. The patient and the father the baby have been notified that DFS will be consulted. Initially, he was a little upset, but appears to be doing better now. (2) History of marijuana use: (3) Abnormal drug screen: (4) Vaginal delivery: Coding Level of Care Code Acute Planning Advisor for Chg Fwd Diagnoses 39 weeks gestation of Z3A.39 History of marijuana use F12.91 Abnormal drug screen R89.2 Vaginal delivery O80
[2022-04-20] MEDS: benzocaine-menthol 78 gm Canister 1 SPRAY TOPICAL (07:36)
[2022-04-20] MEDS: lanolin oint 7 gm 1 APPLIC TOPICAL (07:36)
[2022-04-20] MEDS: ibuprofen 800 mg tablet PO ×3 (08:06→20:09)
[2022-04-20] MEDS: docusate sodium 100 mg Capsule PO ×2 (08:06→18:26)
[2022-04-20] MEDS: prenatal vitamin Capsule 1 CAP PO (08:07)
[2022-04-20] MEDS: HYDROcodone-acetaminophen 5-325 mg Tablet PO ×2 (12:05→18:26)
[2022-04-20 18:54] LABS: Hematocrit 34.2 % (37.0-47.0); Hemoglobin 10.8 g/dL (11.5-15.3); Mean Corpuscular HGB Conc 31.6 g/dL (30.0-36.0); Mean Corpuscular Hemoglobin 27.3 pg (28.0-34.0); Mean Corpuscular Volume 86.4 fl (81-99); Mean Platelet Volume 9.3 fL (7.4-10.4); Platelet Count 343 10^3/cmm (130-400); Red Blood Count 3.96 10^6/uL (4.1-5.3); Red Cell Distribution Width 13.2 % (12.1-15.1); White Blood Count 22.1 10^3/uL (4.0-10.0)
[2022-04-21 00:15] VITALS: BP 109/78; PULSE 78; RESP 16; O2SAT 98
[2022-04-21 04:45] VITALS: BP 111/62; PULSE 71; RESP 16; TEMP 36.9; O2SAT 98
--- NOTE | 2022-04-21 06:37 | P.DS_ITS ---
Discharge Providers OPERATING ROOM NURSE Date of Admission: 04/20/22 01:01 Date of Discharge: 05/01/22 Attending Provider at Admission: Bridger Raymond MD Attending Provider at Discharge: Bridger Raymond MD Primary Care Provider: Yoshi Alaniz DO Diagnoses at Discharge Discharge Diagnosis (1) 39 weeks gestation of : Status: Resolved (2) History of marijuana use: Status: Inactive (3) Abnormal drug screen: Status: Inactive (4) Vaginal delivery: Status: Inactive Reason for Visit Reason for Visit: Possible ROM, Contractions Information Peripartum Data: Delivery Method: Vaginal Physical Exam Narrative: The patient is alert. She appears comfortable. Her heart has a regular rate and rhythm with no murmurs appreciated. Lungs are clear to auscultation bilaterally. Her fundus is firm and below the umbilicus. Urinary Catheter Management: Shah Latex: Cath Placed During This Visit: yes, but has since been removed by the nurse Reason for Continuing Indwelling Catheter: Decision to DC Catheter Urinary Catheter Date of Insertion: 04/20/22 Urinary Catheter Time of Insertion: 03:30 Date Urinary Catheter Removed: 04/20/22 Time Urinary Catheter Discontinued: 06:00 Discharge Data Studies Completed and Pending Laboratory Results WBC 22.1 10^3/uL (4.0-10.0) H 04/20/22 18:30 RBC 3.96 10^6/uL (4.1-5.3) L 04/20/22 18:30 Hgb 10.8 g/dL (11.5-15.3) L 04/20/22 18:30 Hct 34.2 % (37.0-47.0) L 04/20/22 18:30 MCV 86.4 fl (81-99) 04/20/22 18:30 MCH 27.3 pg (28.0-34.0) L 04/20/22 18:30 MCHC 31.6 g/dL (30.0-36.0) 04/20/22 18:30 RDW 13.2 % (12.1-15.1) 04/20/22 18:30 Plt Count 343 10^3/cmm (130-400) 04/20/22 18:30 MPV 9.3 fL (7.4-10.4) 04/20/22 18:30 Neut % (Auto) 82.3 % 04/20/22 00:53 Lymph % (Auto) 11.4 % 04/20/22 00:53 [place] % (Auto) 4.9 % 04/20/22 00:53 Eos % (Auto) 0.4 % 04/20/22 00:53 Baso % (Auto) 0.3 % 04/20/22 00:53 Neut # (Auto) 15.09 10^3/uL (1.8-7.7) H 04/20/22 00:53 Lymph # (Auto) 2.1 10^3/uL (0.8-4.8) 04/20/22 00:53 [place] # (Auto) 0.9 10^3/uL (0.2-0.9) 04/20/22 00:53 Eos # (Auto) 0.1 10^3/uL (0.0-0.8) 04/20/22 00:53 Baso # (Auto) 0.1 10^3/uL (0.0-0.1) 04/20/22 00:53 Nucleated RBC % (auto) 0 % 04/20/22 00:53 Nucleated RBCs # 0.0 /100WBC 04/20/22 00:53 Urine Opiates Screen Negative ng/mL (Negative) 04/20/22 04:55 Ur Barbiturates Screen Negative ng/mL (Negative) 04/20/22 04:55 Ur Phencyclidine Scrn Negative ng/mL (Negative) 04/20/22 04:55 Ur Amphetamines Screen Negative ng/mL (Negative) 04/20/22 04:55 U Benzodiazepines Scrn Negative ng/mL (Negative) 04/20/22 04:55 Urine Cocaine Screen Negative ng/mL (Negative) 04/20/22 04:55 U Marijuana (THC) Screen Positive ng/mL (Negative) H 04/20/22 04:55 Vitals Last Vital Signs Temp 98.3 F 04/20/22 20:11 Pulse 78 04/21/22 00:15 Resp 16 04/21/22 00:15 BP 109/78 04/21/22 00:15 Pulse Ox 98 04/21/22 00:15 O2 Del Method 04/21/22 00:15 Discharge Plan Discharge Patient Disposition: Home Condition: Stable Prescriptions: New ibuprofen 800 mg Tablet 800 mg PO TID Qty: 45 0RF Continued 1 tab PO DAILY Discharge Orders: Discharge Order (Routine); Ordered 04/21/22 Ordered By: Bridger Raymond Referrals: Bridger Raymond MD [Physician] - 06/02/22 11:45 am (Your appointment with Dr. Raymond will be at 11:45am. ) Discharge Diet: Usual diet Discharge Activity: Limit activity as instructed Patient Instructions: Depression (DC), Perineal Care (GEN), Expression, Collection and Storage of Breast Milk (GEN), How to Hold and Breastfeed Your Baby (GEN), and Nipple Soreness (GEN), and Breast Engorgement (GEN), and Plugged Ducts (GEN), How to Increase Your Milk Supply (GEN), Effects of Smoking, Alcohol, and Medicines on (GEN), Opioid Safety (DC), Preeclampsia and Eclampsia After Delivery (GEN), Breast Care for the Mother (GEN), Hemorrhage (DC), OB Discharge Report, OB Food/Drug Interaction Guide, OB Care at Home, Opioid Safety, OB Vaginal Deliveries, Abnormal Bleeding Discharge Attestations OPERATING ROOM NURSE Time Spent in Discharge Care*: greater than 30 min Coding Level of Care Code Acute Code for Chg Fwd Diagnoses 39 weeks gestation of Z3A.39 History of marijuana use F12.91 Abnormal drug screen R89.2 Vaginal delivery O80
--- NOTE | 2022-04-21 08:00 | ANE.PACU2 ---
Inpatient post-anesthesia follow up: Airway intact: Yes Vital signs: Temperature 98.0 F Pulse Rate 98 Respiratory Rate 16 Blood Pressure 121/2 Pulse Oximetry 98 Oxygen Delivery Me thod Room Air Oxygen Flow Rate Fraction of Inspir ed Oxygen Hydration adequate: Yes Nausea and vomiting: No Pain level: 1 Mental status: Baseline
[2022-04-21] MEDS: prenatal vitamin Capsule 1 CAP PO (10:48)
[2022-04-21] MEDS: ibuprofen 800 mg tablet PO (10:48)
[2022-04-21] MEDS: docusate sodium 100 mg Capsule PO (10:48)
[2022-04-21 10:53] VITALS: BP 137/85; PULSE 104; RESP 18; TEMP 36.9; O2SAT 97
[2022-04-21 12:30] VITALS: BP 121/2; PULSE 98; RESP 16; TEMP 36.7; O2SAT 98
== END 2022-04-21 12:30 | disposition home or self-care (01) | DRG 806 ==
LOC: OPOB 01:04 → OBGYN 01:04
PROVIDERS: Admitting Provider Family Medicine; PCP Family Medicine; Visit Provider Family Medicine
DX: O69.81X0 Labor and delivery complicated by cord around neck, without compression, not applicable or unspecified (principal); O99.324 Drug use complicating childbirth; Z37.0 Single live birth; O70.0 First degree perineal laceration during delivery; F12.90 Cannabis use, unspecified, uncomplicated; O99.334 Smoking (tobacco) complicating childbirth; F17.290 Nicotine dependence, other tobacco product, uncomplicated; Z3A.39 39 weeks gestation of pregnancy
CPT/HCPCS: 12345; 36415; 51702; 59025; 59409; 80306; 83986; 85025; 85027; 96374; 96376; 98960; 99211; J2405; J7120; J7121

== ENCOUNTER → 2022-06-18 14:14 | Outpatient (BNVA) | payer BC, SELFPAY | PROVIDERS: PCP Family Medicine; Visit Provider Nurse Practitioner Psychiatric/Mental Health | DX: F31.63 Bipolar disorder, current episode mixed, severe, without psychotic features (principal); F41.1 Generalized anxiety disorder; F43.12 Post-traumatic stress disorder, chronic; F12.90 Cannabis use, unspecified, uncomplicated; F17.290 Nicotine dependence, other tobacco product, uncomplicated; Z79.899 Other long term (current) drug therapy | CPT/HCPCS: 80053; 80061; 83036 ==

== ENCOUNTER → 2022-07-23 15:31 | Outpatient (BNVA) | payer BC, SELFPAY | PROVIDERS: PCP Family Medicine; Visit Provider Nurse Practitioner Psychiatric/Mental Health | DX: Z79.899 Other long term (current) drug therapy (principal) | CPT/HCPCS: 80053; 80178 ==

== ENCOUNTER 2022-11-22 21:20 | Inpatient (IN) | payer BC, SELFPAY ==
[2022-11-22 21:42] VITALS: BP 146/92; PULSE 124; RESP 18; TEMP 37.4; O2SAT 98; BMI 30.2
[2022-11-22 21:45] LABS: Basophils # 0.1 10^3/uL (0.0-0.1); Basophils % 0.7 %; Eosinophils % 0.1 %; Hematocrit 41.7 % (37.0-47.0); Hemoglobin 13.8 g/dL (11.5-15.3); Lymphocytes # 2.5 10^3/uL (0.8-4.8); Lymphocytes % 15.2 %; Mean Corpuscular HGB Conc 33.1 g/dL (30.0-36.0); Mean Corpuscular Hemoglobin 28.8 pg (28.0-34.0); Mean Corpuscular Volume 86.9 fl (81-99); Mean Platelet Volume 9.1 fL (7.4-10.4); Monocytes # 1.2 10^3/uL (0.2-0.9); Monocytes % 7.5 %; Neutrophils % 76.3 %; Nucleated Red Blood Cells % 0 %; Platelet Count 344 10^3/cmm (130-400); Red Cell Distribution Width 13.5 % (12.1-15.1); White Blood Count 16.5 10^3/uL (4.0-10.0)
[2022-11-22 22:03] LABS: Alanine Aminotransferase 15 U/L (0-33); Albumin Level 4.6 g/dL (3.5-5.2); Alkaline Phosphatase 95 U/L (35-105); Anion Gap 20.9 (5-19); Aspartate Amino Transferase 21 U/L (0-32); Blood Urea Nitrogen 7 mg/dL (6-20); Calcium 9.4 mg/dL (8.5-10.5); Carbon Dioxide 18 mmol/L (22-29); Chloride 103 mmol/L (98-107); Globulin 2.9 g/dL (1.3-4.6); Glomerular Filtration Rate 150.3 mL/min (90-130); Glucose 111 mg/dL (65-115); Osmolality Calculated 287 mOsm/kg (285-295); Sodium 139 mmol/L (136-145); Total Protein 7.5 g/dL (6.6-8.7)
[2022-11-22 22:08] LABS: Acetaminophen < 5.0 ug/mL (10-30); Alcohol Level < 10 mg/dL (0-10); Potassium 2.9 mmol/L (3.5-5.1); Salicylate < 0.3 mg/dL (3-10)
[2022-11-22 22:18] LABS: Blood Urine Neg (Negative); Glucose Urine UA Norm (Normal); Ketones Urine 3+ (Negative); Protein Urine 1+ (Negative); Specific Gravity, Urine 1.025 (1.005-1.030); Urine Appearance Cloudy (CLEAR); Urine Color Yellow (Yellow); pH Urine 5 (5-7)
[2022-11-22 22:19] LABS: Add Urine Microscopic? YES; Bilirubin Urine 1+ (Negative); Leukocyte Esterase Urine 2+ (Negative); Nitrate Urine Positive (Negative); Urobilinogen Urine 1 mg/dL (Negative)
[2022-11-22 22:20] LABS: RBC Urine 0-4 /hpf (0-2)
[2022-11-22 22:21] LABS: Amphetamines Screen Urine Negative (Negative); Barbiturates Screen Urine Negative (Negative); Benzodiazepines Screen Urine Negative (Negative); Cocaine Screen Urine Negative (Negative); Opiate Screen Urine Negative (Negative); PCP Screen Urine Negative (Negative); Squamous Epithelial Cell Urine 25-40 /hpf (0-5); THC Screen Urine Positive (Negative)
[2022-11-22 22:22] LABS: Add Urine Culture? No; Bacteria Urine 3+ /hpf; Mucus Urine 2+ /hpf
--- NOTE | 2022-11-22 22:46 | PC.NURSE ---
Copy of 96 Hour hold served to pt by this RN and security. Pt was resistive to information regarding 96 hour hold. Pt stating I will only speak to a female I told pt that I was a female, pt then stated I will only talk to men from this point forward . Pt denied having any questions.
[2022-11-22] MEDS: potassium chloride oral liq 20 mEq/15 mL UDC 60 MEQ PO (22:49)
[2022-11-23] MEDS: cefTRIAXone 1,000 MG in water for injection-sterile 2.1 ML 2.1 MG IM (00:13)
--- NOTE | 2022-11-23 01:07 | W.ED.PSYCHS ---
HPI - Psych General: Chief Complaint: Psychiatric Symptoms Stated Complaint: psych unit Time Seen by Provider: 11/22/22 21:40 Source: patient Mode of arrival: ambulatory History of Present Illness: 27-year-old female is brought in by family with affidavits for acute psychosis patient here appears to be acutely psychotic she states that there are people after her she sees purple people she is very concerned and fixated on who the father of her child is. Patient keeps hiding under the blanket and asked like she is scared and will not give much of a history Review of Systems General: Reports: ROS unobtainable due to medical condition PFS ED PFSH: Medical History Abnormal drug screen Bipolar disorder, current episode mixed, severe, without psychotic features Per history Generalized anxiety disorder History of marijuana use Marijuana use, episodic via Dabbing Nicotine dependence due to vaping tobacco product Post-traumatic stress disorder, chronic Vaginal delivery Social History Smoking and tobacco status: current every day smoker e-cigarettes E-Cigarette Details: vaporizer device and with nicotine E-cig/vape details: Daily or two/ one refill. Quit status (tobacco): has tried quititng Number of times tried to quit tobacco: 2 Second hand smoke exposure: No Alcohol intake: current Alcohol intake frequency: holidays/special occasions only Alcohol type: wine Counseling given: No Substance/Drug Use: current Substance/Drug use frequency: daily Physical Exam Const: COMMON NORMALS: negative for patient oriented x3 HENMT: COMMON NORMALS: normocephalic and atraumatic HEAD & SCALP: normocephalic and atraumatic Eye: COMMON NORMALS: Equal, round and reactive pupils present and EOMs intact bilaterally PUPIL: Yes Equal, round and reactive pupils present Neck/C-Spine: COMMON NORMALS: full ROM and supple Chest: COMMONS NORMALS: normal inspection of the chest and normal palpation of entire chest wall Resp: COMMON NORMALS: normal respiratory effort, No retractions, No use of accessory muscles and clear to auscultation bilaterally AUSCULTATION: clear to auscultation bilaterally Cardio: COMMON NORMALS: regular rate, regular rhythm and No murmurs present (Cardio) RATE: regular rate RHYTHM: regular rhythm GI: COMMON NORMALS: Normal to inspection, nondistended, normoactive bowel sounds present, Soft to palpation, non-tender and no masses PALPATION: Yes Soft to palpation Extremity: COMMON NORMALS: normal to inspection and full ROM Neuro: COMMON NORMALS: moves all extremities and no focal motor deficits; negative for patient oriented x3 Psych: COMMON NORMALS: cooperative ATTITUDE: Yes paranoid and Yes Withdrawn affect present ACTIVITY/MOTOR BEHAVIOR: Yes disorganized behavior and Yes restless THOUGHT PROCESS: disorganized THOUGHT CONTENT: Yes Hallucination(s) present Skin: COMMON NORMALS: no rashes or lesions noted and no wounds GENERAL SKIN EXAM: no rashes or lesions noted Course Vital Signs: Vital signs: Vital Signs Temperature 99.4 F 11/22/22 21:42 Pulse Rate 124 H 11/22/22 21:42 Respiratory Rate 18 11/22/22 21:42 Blood Pressure 146/92 11/22/22 21:42 Pulse Oximetry 98 11/22/22 21:42 Oxygen Delivery Me thod Room Air 11/22/22 21:42 MDM - Psych Medical Decision Making Patient presents here with acute psychosis she is hallucinating here in psychotic patient placed on a 96-hour hold I talked to Dr. Kang will admit at this time. Medical Records I reviewed the patient's medical records. Lab Data I reviewed the patient's lab results. 11/22/22 21:39 11/22/22 21:39 Laboratory Results WBC 16.5 10^3/uL (4.0-10.0) H 11/22/22 21:39 RBC 4.80 10^6/uL (4.1-5.3) 11/22/22 21:39 Hgb 13.8 g/dL (11.5-15.3) 11/22/22 21:39 Hct 41.7 % (37.0-47.0) 11/22/22 21:39 MCV 86.9 fl (81-99) 11/22/22 21:39 MCH 28.8 pg (28.0-34.0) 11/22/22 21:39 MCHC 33.1 g/dL (30.0-36.0) 11/22/22 21:39 RDW 13.5 % (12.1-15.1) 11/22/22 21:39 Plt Count 344 10^3/cmm (130-400) 11/22/22 21:39 MPV 9.1 fL (7.4-10.4) 11/22/22 21:39 Neut % (Auto) 76.3 % 11/22/22 21:39 Lymph % (Auto) 15.2 % 11/22/22 21:39 [place] % (Auto) 7.5 % 11/22/22 21:39 Eos % (Auto) 0.1 % 11/22/22 21:39 Baso % (Auto) 0.7 % 11/22/22 21:39 Neut # (Auto) 12.60 10^3/uL (1.8-7.7) H 11/22/22 21:39 Lymph # (Auto) 2.5 10^3/uL (0.8-4.8) 11/22/22 21:39 [place] # (Auto) 1.2 10^3/uL (0.2-0.9) H 11/22/22 21:39 Eos # (Auto) 0.0 10^3/uL (0.0-0.8) 11/22/22 21:39 Baso # (Auto) 0.1 10^3/uL (0.0-0.1) 11/22/22 21:39 Nucleated RBC % (auto) 0 % 11/22/22 21: Nucleated RBCs # 0.0 /100WBC 11/22/22 21:39 Sodium 139 mmol/L (136-145) 11/22/22 21:39 Potassium 2.9 mmol/L (3.5-5.1) L 11/22/22 21:39 Chloride 103 mmol/L (98-107) 11/22/22 21:39 Carbon Dioxide 18 mmol/L (22-29) L 11/22/22 21:39 Anion Gap 20.9 (5-19) H 11/22/22 21:39 BUN 7 mg/dL (6-20) 11/22/22 21:39 Creatinine 0.5 mg/dL (0.5-0.9) 11/22/22 21:39 GFR Calculation 150.3 mL/min (90-130) H 11/22/22 21:39 Glucose 111 mg/dL (65-115) 11/22/22 21:39 Calculated Osmolality 287 mOsm/kg (285-295) 11/22/22 21:39 Calcium 9.4 mg/dL (8.5-10.5) 11/22/22 21:39 Total Bilirubin 1.0 mg/dL (0.15-1.2) 11/22/22 21:39 AST 21 U/L (0-32) 11/22/22 21:39 ALT 15 U/L (0-33) 11/22/22 21:39 Alkaline Phosphatase 95 U/L (35-105) 11/22/22 21:39 Total Protein 7.5 g/dL (6.6-8.7) 11/22/22 21:39 Albumin 4.6 g/dL (3.5-5.2) 11/22/22 21:39 Globulin 2.9 g/dL (1.3-4.6) 11/22/22 21:39 Urine Color Yellow (Yellow) 11/22/22 22:04 Urine Appearance Cloudy (CLEAR) A 11/22/22 22:04 Urine pH 5 (5-7) 11/22/22 22:04 Ur Specific [place] 1.025 (1.005-1.030) 11/22/22 22:04 Urine Protein 1+ (Negative) H 11/22/22 22:04 Urine Glucose (UA) Norm (Normal) 11/22/22 22:04 Urine Ketones 3+ (Negative) H 11/22/22 22:04 Urine Blood Neg (Negative) 11/22/22 22:04 Urine Nitrate Positive (Negative) H 11/22/22 22:04 Urine Bilirubin 1+ (Negative) H 11/22/22 22:04 Urine Urobilinogen 1 mg/dL (Negative) H 11/22/22 22:04 Ur Leukocyte Esterase 2+ (Negative) H 11/22/22 22:04 Urine RBC 0-4 /hpf (0-2) H 11/22/22 22:04 Urine WBC 10-15 /hpf (0-5) H 11/22/22 22:04 Ur Squamous Epith Cells 25-40 /hpf (0-5) H 11/22/22 22:04 Amorphous Sediment Not Reportable 11/22/22 22:04 Urine Bacteria 3+ /hpf (NONE) H 11/22/22 22:04 Urine Mucus 2+ /hpf 11/22/22 22:04 Urine Yeast Trace /hpf 11/22/22 22:04 Salicylates < 0.3 mg/dL (3-10) L 11/22/22 21:39 Urine Opiates Screen Negative ng/mL (Negative) 11/22/22 22:04 Acetaminophen < 5.0 ug/mL (10-30) L 11/22/22 21:39 Ur Barbiturates Screen Negative ng/mL (Negative) 11/22/22 22:04 Ur Phencyclidine Scrn Negative ng/mL (Negative) 11/22/22 22:04 Ur Amphetamines Screen Negative ng/mL (Negative) 11/22/22 22:04 U Benzodiazepines Scrn Negative ng/mL (Negative) 11/22/22 22:04 Urine Cocaine Screen Negative ng/mL (Negative) 11/22/22 22:04 U Marijuana (THC) Screen Positive ng/mL (Negative) H 11/22/22 22:04 Ethyl Alcohol < 10 mg/dL (0-10) 11/22/22 21:39 Discharge Plan Discharge Patient Disposition: Admitted As Inpatient Clinical Impression: Acute psychosis Condition: Stable Prescriptions: No Action quetiapine 25 mg tablet 25 mg PO TID Qty: 90 3RF Rx Instructions: Take one tablet three times per day Referrals: Yoshi Alaniz DO [Primary Care Provider] - Coding Level of Care Code ED Retail Marketing Executive for Jamel Wislon
[2022-11-23] MEDS: hyDROXYzine 25 mg Capsule PO (01:52)
[2022-11-23 01:54] VITALS: BP 154/99; PULSE 114; RESP 20; O2SAT 96
--- NOTE | 2022-11-23 04:00 | PC.NURSE ---
PATIENT IN RESTROOM AND PSA ASKS FOR ASSISTANCE. PATIENT PACING IN THE BATHROOM. PATIENT STATES THAT SHE'S JUST TRYING TO FIGURE OUT HER OWN BODY AND PATIENT REFUSING TO GET DRESSED. PATIENT GIVEN NEW SET OF GREEN SCRUBS. PATIENT CONTINUED TO PACE BATHROOM STATING THAT SHE'S JUST TRYING TO FIGURE OUT HOW TO BE A FEMALE. PATIENT REDRESSED, PATIENT GIVEN SANDWICH. PATIENT HAS NO FURTHER NEEDS AT THIS TIME.
[2022-11-23] MEDS: OLANZapine 5 mg ODT PO ×2 (04:20→20:28)
[2022-11-23 04:21] VITALS: RESP 22
[2022-11-23] MEDS: haloperidol inj 5 mg/mL INJ 1 mL IM ×2 (05:10→21:00)
[2022-11-23] MEDS: LORazepam 2 mg/mL INJ 1 mL IM ×2 (05:10→21:00)
[2022-11-23] MEDS: diphenhydrAMINE 50 mg/mL SDV 1mL IM ×2 (05:11→21:00)
[2022-11-23 06:25] VITALS: PULSE 107; RESP 16; O2SAT 97
--- NOTE | 2022-11-23 08:06 | PC.PHAR ---
pt states she takes care of her own medications-pt states she only takes quetiapine tid prn anxiety magdat last filled quetiapine 25mg tid on 11/05/22 30d/s-pt states she also thinks she takes a vitamin d3 daily-robb states they also filled a lithium 600mg bid on 07/23/22 30d/s-ext med history also shows zyprexa odt 5mg bid prn filled 07/09/22 15d/s-lithium 300mg bid filled 06/18/22 30d/s-celexa 10mg daily filled 06/01/22 30d/s-hydroxyzine hcl 25mg bid prn filled 06/01/22 15d/s and ibu 800mg tid filled 04/21/22 15d/s-
--- NOTE | 2022-11-23 12:30 | PC.NURSE ---
to room. pt updated on status. explained that we were waiting on a room assigment. pt states she wants a female doctor and a female nurse and that Dr. Kang would not be her doctor. I told her at this time, there were no female nurses available for her, but there possibly would be in [facility].
--- NOTE | 2022-11-23 13:07 | PC.NURSE ---
to room. pt sitting in floor crying. says she does not want to live another day. per sitter, pt keeps trying to close the curtains. it was explained to the pt that she could not close the curtains as we have to be in visual contact with her at all times.
[2022-11-23 14:00] VITALS: BP 137/73; PULSE 94; RESP 18; O2SAT 99
[2022-11-23] MEDS: acetaminophen 325 mg Tablet 650 MG PO (14:11)
[2022-11-23] MEDS: hyDROXYzine 25 mg Capsule 50 MG PO (14:12)
[2022-11-23] MEDS: potassium chloride oral liq 20 mEq/15 mL UDC 60 MEQ PO (14:42)
[2022-11-23 17:41] VITALS: BP 154/88; PULSE 85; RESP 17; TEMP 37.4; O2SAT 98
--- NOTE | 2022-11-23 18:31 | PC.NURSE ---
Called pharmacy in [place]. Patient is on seroquel 25mg TID, last picked up in October.. Patient picked up a Rx for Lithuym 600mg BID in July Last picked up hydroxyzine 25mL BID in May. Olanzapine ODT 5mg BID PRN for anxiety and agitation in June.
--- NOTE | 2022-11-23 20:54 | PC.NURSE ---
PT HAS BEEN VERY AGITATED THIS SHIFT. PT PACES BACK IN FORTH FROM ROOM TO PHONE. WILL CLIPPER MACHINE PHONE AND TALK TO THE PHONE LIKE SOMEONE IS THERE, BUT NO ONE IS THERE. PT CUSSES AT STAFF DEMANDS SEROQUEL BE RESTARTED. DR. BALDWIN NOTIFIED OF SEROQUEL REQUEST AND BEHAVIOR. PT STOMPING OFF GOES TO DAY ROOM. STAFF MADE SEVERAL ATTEMPTS TO GET PTS TOOTH BRUSH FROM HER THAT WAS IN HER FRONT POCKET. PT HAS TANGENTIAL THOUGHTS, LOOSE ASSOCIATIONS. PT IS VERY UPSET THAT STAFF WILL NOT LET HER WALK HOME. PT STATES SHE NEEDS TO GET TO HER BABY. ATTEMPTED TO EDUCATED PT ON GETTING BETTER THEN GO HOME. PT ACTS LIKE SHE IS GOING TO HIT STAFF BUT DID NOT. PT WAS GIVEN ZYDIS WITH LITTLE RESOLVE. MED NURSE CURRENTLY DRAWING UP ATIVAN 2 MG, HALDOL 5 MG AND BENADRYL 50 MG IM. PT CURRENTLY IN DAY ROOM.
--- NOTE | 2022-11-23 21:02 | PC.NURSE ---
PT CONTINUES TO BE AGITATED SLAMMING DOWN PHONE AND YELLING INTO THE PHONE, CUSSING VERY LOUDLY DISRUPTING OTHERS. PT WAS GIVEN HALDOL 5 MG AND ATIVAN 2 MG IM BY THIS RN IN LEFT DETOID AND BENADRYL 50 MG IM INTO RIGHT DELTOID BY LEG ASSEMBLER AT APPROXIMATELY 2100. PT WAS WANTING TO LEAVE BY WALKING TO [place]. PT WAS EDUCATED THAT SHE WAS ON A 96 HOUR HOLD AND SHE WOULD NOT BE ABLE TO LEAVE UNTIL THE DRSandi DISCHARGED HER. PT WAS STILL VERY UPSET BUT STOOD STILL WHILE INJECTIONS WERE GIVEN. PT THEN WENT TO THE PHONE AGAIN CUSSED INTO THE PHONE, THEN SLAMMED IT DOWN. PT WAS INFORMED SHE WOULD NOT BE ABLE TO MAKE CALLS UNTIL SHE COULD CALM DOWN. PT THEN WENT TO ROOM.
[2022-11-23 21:21] VITALS: BP 135/80; PULSE 114; RESP 18; TEMP 37.1; O2SAT 97
--- NOTE | 2022-11-23 22:09 | PC.NURSE ---
AT NURSES STATION UPSET ABOUT BEING ON A HOLD. EDUCATION PROVIDED PT STATES I'M GOING TO [facility], YOU, YOU AND ALL THE REST OF YOU AND EVERY OTHER HOSPITAL I'VE BEEN TOO. SUPPORT VOICED
--- NOTE | 2022-11-24 00:10 | PC.NURSE ---
Haldol 5mg, ATIVAN 2 MG AND BENADRYL 50 MG WERE EFFECTIVE. PT WENT TO BED AND HAS BEEN RESTING WITH EYES CLOSED SINCE 2244. CURRENTLY RESTING WITH EYED CLOSED NO DISTRESS IS NOTED.
--- NOTE | 2022-11-24 05:59 | PC.NURSE ---
PT UP TO NURSES STATION STATES, WHEN AM I LEAVING? I NEED TO TALK TO THE DR. WHY ARE YOU GUYS NOT GIVING ME MY SEROQUEL, YOUR JUST MISSING WITH MY MEDS. PT WAS EDUCATED THAT SHE WOULD BE ABLE TO SPEAK TO DR. BALDWIN THIS AM BUT HE IS THE ONLY ONE THAT CAN DISCHARGE. PT BECAME UPSET AGAIN STATING, I'M NOT TALKING TO THAT DR, YOU NEED TO GET ANOTHER DR, ANYONE BUT HIM, HE SCREWED ME LAST TIME I WAS HERE. PT THEN WENT TO THE BENCH AND STARTED THROWING PAPERS OFF THE BENCH. PT WAS REDIRECTED. CONTINUES TO HAVE INTERMITTENT EPISODES OF ANGER. SUPPORT VOICED.
[2022-11-24 06:00] VITALS: BP 122/73; PULSE 91; RESP 19; O2SAT 98
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
[2022-11-24] MEDS: hyDROXYzine 25 mg Capsule 50 MG PO ×2 (08:11→15:07)
--- NOTE | 2022-11-24 08:11 | PC.NURSE ---
PRN VISTARIL 50 MG GIVEN PO PER PT C/O ANXIETY, TEARFUL AT THE DESK TALKING ABOUT HER SON
[2022-11-24] MEDS: nicotine 21 mg Patch 1 PATCH TRANSDERMA (09:21)
[2022-11-24] MEDS: OLANZapine 5 mg ODT PO ×2 (11:25→19:32)
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
[2022-11-24 14:00] VITALS: BP 145/89; PULSE 121; RESP 18; TEMP 37.3; O2SAT 99
[2022-11-24] MEDS: acetaminophen 325 mg Tablet 650 MG PO (15:06)
--- NOTE | 2022-11-24 15:07 | PC.NURSE ---
PRN VISTARIL 50 MG GIVEN PO PER PT C/O STATED ANXIETY
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
[2022-11-24 21:26] VITALS: BP 149/97; PULSE 114; RESP 18; TEMP 37.2; O2SAT 97
[2022-11-24] MEDS: trazodone 50 mg Tablet PO (21:32)
[2022-11-25] MEDS: diphenhydrAMINE 50 mg/mL SDV 1mL IM (01:13)
[2022-11-25] MEDS: haloperidol inj 5 mg/mL INJ 1 mL IM (01:13)
[2022-11-25] MEDS: LORazepam 2 mg/mL INJ 1 mL IM (01:14)
--- NOTE | 2022-11-25 01:15 | PC.NURSE ---
At approx 0100 on 11/24/22 Nurse Lindsey Weaver was in the day room with the patient to remove her nose ring that is not allowed to be worn on the unit. Patient then became upset and threw herself on the floor once removing the nose ring. Patient stated that you are breaking my heart by taking the nose ring. Patient then became loud and agitated. Patient then made multiple comments of being suicidal. It was determined that the only way to calm patient down was a B52. This nurse, OCCUPATIONAL THER, NT and CLINICAL REHABILITATION SPECIALIST proceeded into the day room to administer the injections. Patient again became very loud and aggressively stated that she would not be taking the shots and that it was her body, her choice . It was explained to the patient that this medication was again necessary in order to calm her down. Patient began to state random thoughts about being a mother and that all she wanted was to speak with a Lady doctor. Patient finally agreed to take the shots. Patient became calm remained in the dayroom pacing.
[2022-11-25 06:00] VITALS: RESP 18
--- NOTE | 2022-11-25 06:28 | P.NPUPN_ITS ---
Subjective NPU Subjective: Patient presented today seeming to acknowledge that she was not doing well and reporting that it had to do with some person that had been staying with him. She reports that person is gone and now things we call her. We discussed the fact that she restarted the Invega is highly likely that the Invega is helping as well. We discussed considering returning to the long-acting injectable so t hat medication decisions are reduced to 2 to 12 injections a year depending on which formulation she is on. Mental Status Exam MSE Comments: This is an obese white female in hospital scrubs with limited grooming and eye contact. No abnormal movements except for mild psychomotor agitation. Semicooperative with exam in mild to moderate distress. Speech was slightly increased rate and volume. Mood described as anxious, affect timid and anxious. Thought process disorganized but occasionally linear. Thought content: Patient denied suicidal or homicidal ideation, there were no delusions reported but she seemed to have somatic as well as paranoid delusions, she did not report auditory or visual hallucinations. Attention and concentration were limited and memory was unreliable but none were formally tested. She is alert and oriented times person and place. Insight and judgment are impaired impulse control is impaired. Vitals/I&O/Wt Last Vital Signs Temp 98.9 F 11/24/22 21:26 Pulse 114 H 11/24/22 21:26 Resp 18 11/24/22 21:26 BP 149/97 11/24/22 21:26 Pulse Ox 97 11/24/22 21:26 O2 Del Method Room Air 11/24/22 21:26 Data NPU 11/22/22 21:39 11/22/22 21:39 A&P Assessment and plan (1) Acute psychosis: (2) Bipolar disorder, current episode mixed, severe, without psychotic features: (3) Nicotine dependence due to vaping tobacco product: (4) Marijuana use, episodic: (5) Generalized anxiety disorder: (6) Post-traumatic stress disorder, chronic: Plan This is a 27-year-old female who has a long history of psychosis with a previous hospitalization on the neuropsychiatric unit for psychotic illness who returns on a 96-hour hold with an acute psychotic episode. Plan: 1.? Continue current medications. Restarted Invega 6 mg p.o. daily and consider restarting previous medications that were assisting with her outpatient functionality after last hospitalization. 2.? Continue every 15 minute checks for safety. 3.? Encourage individual, group and milieu therapies. 4.? Encourage sober living treatment after discharge at the highest level of care to which she is willing to commit. Involuntary Hold Information 96 Hour Hold: 96 Hour Involuntary Admission: Yes 96 Hour Hold Ending Date: 11/27/22 96 Hour Hold Ending Time: 00:01 Attestations NPU Medical Necessity Statement*: Inpatient hospitalization is medically necessary and the clinically appropriate intervention at this time. We will initiate medications and make changes as indicated. Likely length of stay 3-5 days Coding Level of Care Code Acute Code for Chg Fwd Diagnoses Acute psychosis F23 Bipolar disorder, current episode mixed, severe, without psychotic features F31.63 Nicotine dependence due to vaping tobacco product F17.290 Marijuana use, episodic F12.90 Generalized anxiety disorder F41.1 Post-traumatic stress disorder, chronic F43.12
[2022-11-25] MEDS: nicotine 21 mg Patch 1 PATCH TRANSDERMA (09:45)
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
[2022-11-25] MEDS: paliperidone ER 6 mg Tablet PO (11:37)
[2022-11-25] MEDS: hyDROXYzine 25 mg Capsule 50 MG PO (12:57)
[2022-11-25 14:00] VITALS: BP 129/89; PULSE 114; RESP 16; TEMP 36.8; O2SAT 97
[2022-11-25] MEDS: OLANZapine 5 mg ODT PO (14:11)
--- NOTE | 2022-11-25 14:12 | PC.NURSE ---
Administered 5mg Zyprexa ODT to patient for anxiety and agitation. patient crying, stating that she doesn't feel pretty. patient then stating that she is upset because she wanted the window and now that she has the window she cannot see out of it because of her poor eye sight
[2022-11-25] MEDS: haloperidol 5 mg Tablet PO (16:55)
[2022-11-25] MEDS: acetaminophen 325 mg Tablet 650 MG PO (17:44)
[2022-11-25 21:34] VITALS: BP 140/95; PULSE 145; RESP 20; TEMP 37.1; O2SAT 98
[2022-11-26 06:00] VITALS: BP 149/110; PULSE 133; RESP 18; TEMP 36.7; O2SAT 96
[2022-11-26] MEDS: hyDROXYzine 25 mg Capsule 50 MG PO ×3 (08:30→23:04)
[2022-11-26] MEDS: paliperidone ER 6 mg Tablet PO (08:30)
[2022-11-26] MEDS: OLANZapine 5 mg ODT PO ×3 (10:30→23:59)
[2022-11-26] MEDS: nicotine 21 mg Patch 1 PATCH TRANSDERMA (10:51)
--- NOTE | 2022-11-26 12:18 | W.PM.NPUPNS ---
Subjective NPU Subjective: Patient presented today reporting that she is feeling a little better. She does seem less agitated on observation and per staff. She reports feeling the Invega is working. We began discussions about the possibility of an Invega injection. She agreed with continue talking about that in the morning. Otherwise she denied any side effects of the medication. Mental Status Exam MSE Comments: This is an obese white female in hospital scrubs with limited grooming and eye contact. No abnormal movements except for mild psychomotor agitation. Semicooperative with exam in mild to moderate distress. Speech was slightly increased rate and volume. Mood described as a little more calm, affect timid and anxious, but congruent. Thought process disorganized but occasionally linear. Thought content: Patient denied suicidal or homicidal ideation, there were no delusions reported but she seemed to have somatic as well as paranoid delusions, she did not report auditory or visual hallucinations. Attention and concentration were limited and memory was unreliable but none were formally tested. She is alert and oriented times person and place. Insight and judgment are impaired impulse control is impaired. Vitals/I&O/Wt Last Vital Signs Temp 98.8 F 11/25/22 21:34 Pulse 145 H 11/25/22 21:34 Resp 20 H 11/25/22 21:34 BP 140/95 11/25/22 21:34 Pulse Ox 98 11/25/22 21:34 O2 Del Method Room Air 11/25/22 21:34 Data NPU 11/22/22 21:39 11/22/22 21:39 A&P Assessment and plan (1) Acute psychosis: (2) Bipolar disorder, current episode mixed, severe, without psychotic features: (3) Nicotine dependence due to vaping tobacco product: (4) Marijuana use, episodic: (5) Generalized anxiety disorder: (6) Post-traumatic stress disorder, chronic: Plan This is a 27-year-old female who has a long history of psychosis with a previous hospitalization on the neuropsychiatric unit for psychotic illness who returns on a 96-hour hold with an acute psychotic episode. Plan: 1.? Continue current medications. Restarted Invega 6 mg p.o. daily and consider restarting previous medications that were assisting with her outpatient functionality after last hospitalization. 2.? Continue every 15 minute checks for safety. 3.? Encourage individual, group and milieu therapies. 4.? Encourage sober living treatment after discharge at the highest level of care to which she is willing to commit. 5. Submitted 21-day hold paperwork to the courts. Involuntary Hold Information 96 Hour Hold: 96 Hour Involuntary Admission: Yes 96 Hour Hold Ending Date: 11/27/22 96 Hour Hold Ending Time: 00:01 Attestations NPU Medical Necessity Statement*: Inpatient hospitalization is medically necessary and the clinically appropriate intervention at this time. We will initiate medications and make changes as indicated. Likely length of stay 3-5 days Coding Level of Care Code Acute Code for Chg Fwd Diagnoses Acute psychosis F23 Bipolar disorder, current episode mixed, severe, without psychotic features F31.63 Nicotine dependence due to vaping tobacco product F17.290 Marijuana use, episodic F12.90 Generalized anxiety disorder F41.1 Post-traumatic stress disorder, chronic F43.12
[2022-11-26 14:00] VITALS: BP 154/104; PULSE 123; RESP 16; TEMP 36.6; O2SAT 95
--- NOTE | 2022-11-26 15:11 | PC.NURSE ---
PT REPORTS ANXIETY. VISTARIL 50 MG GIVEN ORDERED.
[2022-11-26 20:14] VITALS: BP 137/111; PULSE 136; RESP 20; TEMP 37.7; O2SAT 97
[2022-11-26] MEDS: acetaminophen 325 mg Tablet 650 MG PO (21:14)
[2022-11-27] MEDS: haloperidol 5 mg Tablet PO ×2 (01:08→15:42)
[2022-11-27 06:00] VITALS: RESP 16
[2022-11-27] MEDS: paliperidone ER 6 mg Tablet PO (08:26)
[2022-11-27] MEDS: nicotine 21 mg Patch 1 PATCH TRANSDERMA (09:51)
[2022-11-27] MEDS: acetaminophen 325 mg Tablet 650 MG PO ×2 (09:56→17:29)
--- NOTE | 2022-11-27 11:40 | W.PM.NPUPNS ---
Subjective NPU Subjective: Patient presented today reporting that she is doing fine. She reports that the medication is helping but that she had a rough night. We discussed the importance of her continuing to take her medication and the benefits of the Invega Sustenna. We discussed the risks, benefits and alternatives and she understood and agreed to proceed as is documented in this note with the plan to start with a loading dose of 234 mg IM. Mental Status Exam MSE Comments: This is an obese white female in hospital scrubs with limited grooming and eye contact. No abnormal movements except for mild psychomotor agitation. Semicooperative with exam in mild to moderate distress. Speech was slightly increased rate and volume. Mood described as a little more calm, affect timid and anxious, but congruent. Thought process disorganized but occasionally linear. Thought content: Patient denied suicidal or homicidal ideation, there were no delusions reported but she seemed to have somatic as well as paranoid delusions, she did not report auditory or visual hallucinations. Attention and concentration were limited and memory was unreliable but none were formally tested. She is alert and oriented times person and place. Insight and judgment are impaired impulse control is impaired. Vitals/I&O/Wt Last Vital Signs Temp 99.8 F H 11/26/22 20:14 Pulse 136 H 11/26/22 20:14 Resp 16 11/27/22 06:00 BP 137/111 11/26/22 20:14 Pulse Ox 97 11/26/22 20:14 O2 Del Method Room Air 11/26/22 20:14 Data NPU 11/22/22 21:39 11/22/22 21:39 A&P Assessment and plan (1) Acute psychosis: (2) Bipolar disorder, current episode mixed, severe, without psychotic features: (3) Nicotine dependence due to vaping tobacco product: (4) Marijuana use, episodic: (5) Generalized anxiety disorder: (6) Post-traumatic stress disorder, chronic: Plan This is a 27-year-old female who has a long history of psychosis with a previous hospitalization on the neuropsychiatric unit for psychotic illness who returns on a 96-hour hold with an acute psychotic episode. Plan: 1.? Continue current medications. Restarted Invega 6 mg p.o. daily and consider restarting previous medications that were assisting with her outpatient functionality after last hospitalization. Start Invega Sustenna 234 mg IM to the deltoid for loading dose. 2.? Continue every 15 minute checks for safety. 3.? Encourage individual, group and milieu therapies. 4.? Encourage sober living treatment after discharge at the highest level of care to which she is willing to commit. 5. Submitted 21-day hold paperwork to the courts. Involuntary Hold Information 96 Hour Hold: 96 Hour Involuntary Admission: Yes 96 Hour Hold Ending Date: 11/27/22 96 Hour Hold Ending Time: 00:01 Attestations NPU Medical Necessity Statement*: Inpatient hospitalization is medically necessary and the clinically appropriate intervention at this time. We will initiate medications and make changes as indicated. Likely length of stay 3-5 days Coding Level of Care Code Acute Code for g Fwd Diagnoses Acute psychosis F23 Bipolar disorder, current episode mixed, severe, without psychotic features F31.63 Nicotine dependence due to vaping tobacco product F17.290 Marijuana use, episodic F12.90 Generalized anxiety disorder F41.1 Post-traumatic stress disorder, chronic F43.12
[2022-11-27] MEDS: benztropine 1 mg Tablet PO (12:49)
[2022-11-27] MEDS: OLANZapine 5 mg ODT PO (12:49)
[2022-11-27 14:00] VITALS: BP 125/85; PULSE 110; RESP 18; TEMP 36.6; O2SAT 97
[2022-11-27] MEDS: hyDROXYzine 25 mg Capsule 50 MG PO ×2 (14:59→22:23)
[2022-11-28 06:00] VITALS: BP 129/95; PULSE 105; RESP 17; O2SAT 98
[2022-11-28] MEDS: nicotine 21 mg Patch 1 PATCH TRANSDERMA (08:08)
[2022-11-28] MEDS: hyDROXYzine 25 mg Capsule 50 MG PO ×3 (08:08→22:13)
[2022-11-28] MEDS: paliperidone ER 6 mg Tablet PO (08:08)
--- NOTE | 2022-11-28 11:49 | P.NPUPN_ITS ---
Subjective NPU Subjective: Patient presented today reporting that she was doing okay. She continued in her fairly emotional state and will be tearful from time to time. She endorsed wanting to go home and we continue to discuss the need for us to have her stabilized on medication. She had agreed to take the long-acting injectable/Invega Sustenna but then had refused to take the medication when offered by the nurses. We once again discussed her taking the medication and she said she would consider it. We discussed the risks, benefits and alternatives and she understood but was hesitant about moving forward as documented in this note. We continue to try to discuss the benefits of taking those daily decisions out the way for long-term stability. Mental Status Exam MSE Comments: This is an obese white female in hospital scrubs with limited grooming and eye contact. No abnormal movements except for mild psychomotor agitation. Semicooperative with exam in mild to moderate distress. Speech was slightly inc reased rate and volume. Mood described as a little more calm, affect timid and anxious, but congruent. Thought process disorganized but occasionally linear. Thought content: Patient denied suicidal or homicidal ideation, there were no delusions reported but she seemed to have somatic as well as paranoid delusions, she did not report auditory or visual hallucinations. Attention and concentration were limited and memory was unreliable but none were formally tested. She is alert and oriented times person and place. Insight and judgment are impaired impulse control is impaired. Vitals/I&O/Wt Last Vital Signs Temp 97.8 F 11/27/22 14:00 Pulse 105 H 11/28/22 06:00 Resp 17 11/28/22 06:00 BP 129/95 11/28/22 06:00 Pulse Ox 98 11/28/22 06:00 O2 Del Method Room Air 11/28/22 06:00 Data NPU 11/22/22 21:39 11/22/22 21:39 A&P Assessment and plan (1) Acute psychosis: (2) Bipolar disorder, current episode mixed, severe, without psychotic features: (3) Nicotine dependence due to vaping tobacco product: (4) Marijuana use, episodic: (5) Generalized anxiety disorder: (6) Post-traumatic stress disorder, chronic: Plan This is a 27-year-old female who has a long history of psychosis with a previous hospitalization on the neuropsychiatric unit for psychotic illness who returns on a 96-hour hold with an acute psychotic episode. Plan: 1.? Continue current medications. Restarted Invega 6 mg p.o. daily and consider restarting previous medications that were assisting with her outpatient functionality after last hospitalization. Start Invega Sustenna 234 mg IM to the deltoid for loading dose. 2.? Continue every 15 minute checks for safety. 3.? Encourage individual, group and milieu therapies. 4.? Encourage sober living treatment after discharge at the highest level of care to which she is willing to commit. 5. Submitted 21-day hold paperwork to the courts. Involuntary Hold Information 96 Hour Hold: 96 Hour Involuntary Admission: Yes 96 Hour Hold Ending Date: 11/27/22 96 Hour Hold Ending Time: 00:01 Attestations NPU Medical Necessity Statement*: Inpatient hospitalization is medically necessary and the clinically appropriate intervention at this time. We will initiate medications and make changes as indicated. Likely length of stay 3-5 days Coding Level of Care Code Acute Code for [facility] Fwd Diagnoses Acute psychosis F23 Bipolar disorder, current episode mixed, severe, without psychotic features F31.63 Nicotine dependence due to vaping tobacco product F17.290 Marijuana use, episodic F12.90 Generalized anxiety disorder F41.1 Post-traumatic stress disorder, chronic F43.12
[2022-11-28] MEDS: acetaminophen 325 mg Tablet 650 MG PO (12:25)
[2022-11-28 14:00] VITALS: BP 138/91; PULSE 147; RESP 16; TEMP 36.7; O2SAT 97
--- NOTE | 2022-11-28 14:26 | PC.NURSE ---
Pt was given the opportunity to shower on the north side of the unit. pt did not shower. when asked if she was done to take her back to the south side of the unit she yelled at the senior maintenance technician. This nurse went to see what was going on and the pt yelled now i actually want to kill myself. pt was given the options to shower or be taken back to her side. pt then walked away stating i need large pants. this nurses stated that we can get her new pants but she will need to pick and shovel man her stuff. to which the pt replied im not picking that shit up its your problem now. the pt did pick it up and place it in the proper receptacles. pt was taken back over to the south side and immediately began talking on the phone.
[2022-11-28] MEDS: OLANZapine 5 mg ODT PO (14:38)
[2022-11-28] MEDS: paliperidone palmitate 234 mg Syringe IM (15:45)
--- NOTE | 2022-11-28 15:50 | PC.NURSE ---
Pt was willing to take invega 234mg/1.5ml injection. This nurse administered injection into the R deltoid. pt tolerated injection well.
[2022-11-28 21:45] VITALS: BP 129/87; PULSE 134; RESP 18; TEMP 36.8; O2SAT 97
[2022-11-29 06:00] VITALS: BP 139/87; PULSE 116; RESP 20; O2SAT 97
[2022-11-29] MEDS: paliperidone ER 6 mg Tablet PO (07:42)
[2022-11-29] MEDS: hyDROXYzine 25 mg Capsule 50 MG PO (07:42)
[2022-11-29] MEDS: OLANZapine 5 mg ODT PO ×2 (10:05→23:42)
[2022-11-29] MEDS: haloperidol 5 mg Tablet PO ×2 (12:30→23:42)
--- NOTE | 2022-11-29 12:40 | PC.NURSE ---
PT STATES THAT SHE SAW A CRACKHEAD RUNNING. PT STATES I DON'T FEEL SAFE HERE, I DON'T DO METH. THIS NURSE EXPLAINED THAT THERE WAS NOT A CRACKHEAD OR ANYBODY RUNNING DOWN THE [place], THERE WAS NO METH PRESENT ON THE FLOOR, AND SHE IS SAFE BECAUSE WE ARE HERE TO HELP AND KEEP EVERYBODY HERE SAFE. THIS NURSE ASKED THE PT IF SHE WOULD LIKE PRN MEDICATION TO ASSIST WITH THE HALLUCINATIONS. PT STATED IM NOT SEEING THINGS, BUT I WILL TAKE SOMETHING FOR MY ANXIETY. THIS NURSE REITERATED THAT SHE DID SEE A MAN RUNNING THAT WAS NOT THERE. PT AGREED TO PRN MEDICATION. THIS NURSE ADMINISTERED 5MG PO HALDOL.
[2022-11-29] MEDS: acetaminophen 325 mg Tablet 650 MG PO ×2 (12:43→22:03)
[2022-11-29] MEDS: ondansetron 4 MG Tablet PO (12:43)
[2022-11-29 14:00] VITALS: BP 137/89; PULSE 120; RESP 18; TEMP 36.7; O2SAT 98
[2022-11-29] MEDS: nicotine 21 mg Patch 1 PATCH TRANSDERMA (15:57)
--- NOTE | 2022-11-29 17:57 | P.NPUPN_ITS ---
Subjective NPU Subjective: Patient presented today acknowledging that she had taken the injection yesterday. She spent much of the time talking about missing her children and wanting to go home and being tearful. We discussed wanting to make sure that she is actually stable to be the parents she wants to be. She reports understanding that but then about the sadness of not being able to see her daughter. We discussed monitoring the medication but that her having the injection will go along the way she was feeling better about the discharge. We discussed her getting her second injection as soon as 4 days from now if she is showing improvement and that might expedite discharge. Mental Status Exam MSE Comments: This is an obese white female in hospital scrubs with limited grooming and eye contact. No abnormal movements except for mild psychomotor agitation. Semicooperative with exam in mild to moderate distress. Speech was slightly increased rate and volume. Mood described as upset, affect timid and anxious, but congruent. Thought process disorganized but occasionally linear. Thought content: Patient denied suicidal or homicidal ideation, there were no delusions reported but she seemed to have somatic as well as paranoid delusions, she did not report auditory or visual hallucinations. Attention and concentration were limited and memory was unreliable but none were formally tested. She is alert and oriented times person and place. Insight and judgment are impaired impulse control is impaired. Vitals/I&O/Wt Last Vital Signs Temp 98.0 F 11/29/22 21:34 Pulse 121 H 11/29/22 21:34 Resp 18 11/29/22 21:34 BP 128/80 11/29/22 21:34 Pulse Ox 97 11/29/22 21:34 O2 Del Method Room Air 11/29/22 21:34 Weight last 48 hrs Weight 84.595 kg Data NPU 11/22/22 21:39 11/22/22 21:39 A&P Assessment and plan (1) Acute psychosis: (2) Bipolar disorder, current episode mixed, severe, without psychotic features: (3) Nicotine dependence due to vaping tobacco product: (4) Marijuana use, episodic: (5) Generalized anxiety disorder: (6) Post-traumatic stress disorder, chronic: Plan This is a 27-year-old female who has a long history of psychosis with a previous hospitalization on the neuropsychiatric unit for psychotic illness who returns on a 96-hour hold with an acute psychotic episode. Plan: 1.? Continue current medications. Restarted Invega 6 mg p.o. daily and consider restarting previous medications that were assisting with her outpatient functionality after last hospitalization. Invega Sustenna 234 mg IM to the deltoid for loading dose started yesterday 11/28/2022. 2.? Continue every 15 minute checks for safety. 3.? Encourage individual, group and milieu therapies. 4.? Encourage sober living treatment after discharge at the highest level of care to which she is willing to commit. 5. Submitted 21-day hold paperwork to the courts. Involuntary Hold Information 96 Hour Hold: 96 Hour Involuntary Admission: Yes 96 Hour Hold Ending Date: 11/27/22 96 Hour Hold Ending Time: 00:01 Attestations NPU Medical Necessity Statement*: Inpatient hospitalization is medically necessary and the clinically appropriate intervention at this time. We will initiate medications and make changes as indicated. Likely length of stay 3-5 days Coding Level of Care Code Acute Code for [facility] Fwd Diagnoses Acute psychosis F23 Bipolar disorder, current episode mixed, severe, without psychotic features F31.63 Nicotine dependence due to vaping tobacco product F17.290 Marijuana use, episodic F12.90 Generalized anxiety disorder F41.1 Post-traumatic stress disorder, chronic F43.12
[2022-11-29] MEDS: loratadine 10 mg Tablet PO (18:32)
[2022-11-29] MEDS: CLONazepam 1 mg Tablet PO (20:27)
[2022-11-29] MEDS: trazodone 50 mg Tablet PO (20:27)
[2022-11-29 21:34] VITALS: BP 128/80; PULSE 121; RESP 18; TEMP 36.7; O2SAT 97
--- NOTE | 2022-11-29 23:44 | PC.NURSE ---
PT CONTINUES TO PACE HALLS AND COME TO NURSES STATION EXCESSIVELY REQUESTING VARIOUS ITEMS. PT IS VISUALLY AGITATED, RESTLESS AND PARANOID. APPEARS TO RESPOND TO INTERNAL STIMULI AND IS SEEN DANCING DOWN THE HALLWAY BOPPING HER HEAD. PT WAS FOUND LOOKING OUT OF THE WINDOW BY 170. PIPE COREMAKER AND THIS RN WENT AND REDIRECTED HER AWAY FROM 170 DUE TO THAT NOT BEING HERE ROOM. MPT WAS GIVEN ZYDIS 5 MG ORDERED FOR SEVERE AGITATION AND HALDOL FOR RESPONDING TO INTERNAL STIMULI AND PARANOIA. PT TOOK MEDICATION WITH NO ISSUES. EDUCATION WAS PROVIDED ON EACH ONE. VERBALIZED UNDERSTANDING. SUPPORT VOICED.
[2022-11-30] MEDS: paliperidone ER 6 mg Tablet PO (07:52)
--- NOTE | 2022-11-30 08:00 | PC.NURSE ---
pt currently endorses depression, si, and anxiety stating its just cause im here, i want to be with my baby. pt does not currently have a plan on how in the facility. pt was willing and cooperative during assessment. pt current needs are met.
[2022-11-30] MEDS: hyDROXYzine 25 mg Capsule 50 MG PO (12:45)
--- NOTE | 2022-11-30 12:45 | PC.NURSE ---
PRN VISTARIL 50 MG GIVEN PO PER PT C/O STATED ANXIETY
[2022-11-30 14:00] VITALS: BP 122/83; PULSE 108; RESP 17; TEMP 36.7; O2SAT 97
[2022-11-30] MEDS: nicotine 21 mg Patch 1 PATCH TRANSDERMA (14:43)
--- NOTE | 2022-11-30 16:41 | P.NPUPN_ITS ---
Subjective NPU Subjective: Patient presented today carrying her circumstances in a sort of stream of consciousness. Talking about her significant other losing his job, not being away from her baby other than at this hospitalization, them likely being evicted, her wanting to leave sooner. Her focusing on the fact that she came in here because she was angry at her significant other but she seems to have limited insight into the challenges related to them not keeping their home sanitary with animal feces and roaches etc. that have led to the involvement of calprotectin services. Mental Status Exam MSE Comments: This is an obese white female in hospital scrubs with limited grooming and eye contact. No abnormal movements except for mild psychomotor agitation. Semicooperative with exam in mild to moderate distress. Speech was slightly increased rate and volume. Mood described as upset, affect timid and anxious, but congruent. Thought process disorganized but occasionally linear. Thought content: Patient denied suicidal or homicidal ideation, there were no delusions reported but she seemed to have somatic as well as paranoid delusions, she did not report auditory or visual hallucinations. Attention and concentration were limited and memory was unreliable but none were formally tested. She is alert a nd oriented times person and place. Insight and judgment are impaired impulse control is impaired. Vitals/I&O/Wt Last Vital Signs Temp 98.0 F 11/29/22 21:34 Pulse 121 H 11/29/22 21:34 Resp 18 11/29/22 21:34 BP 128/80 11/29/22 21:34 Pulse Ox 97 11/29/22 21:34 O2 Del Method Room Air 11/29/22 21:34 Weight last 48 hrs Weight 84.595 kg Data NPU 11/22/22 21:39 11/22/22 21:39 A&P Assessment and plan (1) Acute psychosis: (2) Bipolar disorder, current episode mixed, severe, without psychotic features: (3) Nicotine dependence due to vaping tobacco product: (4) Marijuana use, episodic: (5) Generalized anxiety disorder: (6) Post-traumatic stress disorder, chronic: Plan This is a 27-year-old female who has a long history of psychosis with a previous hospitalization on the neuropsychiatric unit for psychotic illness who returns on a 96-hour hold with an acute psychotic episode. Plan: 1.? Continue current medications. Restarted Invega 6 mg p.o. daily and consider restarting previous medications that were assisting with her outpatient functionality after last hospitalization. Invega Sustenna 234 mg IM to the deltoid for loading dose started 11/28/2022. 2.? Continue every 15 minute checks for safety. 3.? Encourage individual, group and milieu therapies. 4.? Encourage sober living treatment after discharge at the highest level of care to which she is willing to commit. 5. Submitted 21-day hold paperwork to the courts. Hearing likely tomorrow. Involuntary Hold Information 96 Hour Hold: 96 Hour Involuntary Admission: Yes 96 Hour Hold Ending Date: 11/27/22 96 Hour Hold Ending Time: 00:01 Attestations NPU Medical Necessity Statement*: Inpatient hospitalization is medically necessary and the clinically appropriate intervention at this time. We will initiate medications and make changes as indicated. Likely length of stay 3-5 days Coding Level of Care Code Acute Code for Chg Fwd Diagnoses Acute psychosis F23 Bipolar disorder, current episode mixed, severe, without psychotic features F31.63 Nicotine dependence due to vaping tobacco product F17.290 Marijuana use, episodic F12.90 Generalized anxiety disorder F41.1 Post-traumatic stress disorder, chronic F43.12
[2022-11-30] MEDS: OLANZapine 5 mg ODT PO (18:35)
[2022-11-30] MEDS: CLONazepam 1 mg Tablet PO (20:18)
[2022-11-30] MEDS: trazodone 50 mg Tablet PO (20:18)
[2022-11-30 20:20] VITALS: BP 135/95; PULSE 116; RESP 18; TEMP 36.8; O2SAT 97
[2022-12-01 05:50] VITALS: RESP 16
[2022-12-01] MEDS: acetaminophen 325 mg Tablet 650 MG PO (07:53)
[2022-12-01] MEDS: paliperidone ER 6 mg Tablet PO (08:19)
[2022-12-01] MEDS: nicotine 21 mg Patch 1 PATCH TRANSDERMA (08:45)
[2022-12-01] MEDS: OLANZapine 5 mg ODT PO ×2 (10:33→16:01)
[2022-12-01] MEDS: hyDROXYzine 25 mg Capsule 50 MG PO ×2 (11:26→21:21)
[2022-12-01 14:00] VITALS: BP 143/91; PULSE 134; RESP 17; TEMP 37.2; O2SAT 97
--- NOTE | 2022-12-01 16:28 | P.NPUPN_ITS ---
Subjective NPU Subjective: Patient presented today reporting that she is doing fine. She identified that she did not want to go to the court hearing but it was unclear why. She seemed to identify that taking the medication and following our recommendation is ultimately the best thing. 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 Mental Status Exam MSE Comments: This is an obese white female in hospital scrubs with limited grooming and eye contact. No abnormal movements except for mild psychomotor agitation. Semicooperative with exam in mild to moderate distress. Speech was slightly increased rate and volume. Mood described as upset, affect timid and anxious, but congruent. Thought process disorganized but occasionally linear. Thought content: Patient denied suicidal or homicidal ideation, there were no delusions reported but she seemed to have somatic as well as paranoid delusions, she did not report auditory or visual hallucinations. Attention and concentration were limited and memory was unreliable but none were formally tested. She is alert and oriented times person and place. Insight and judgment are impaired impulse control is impaired. Vitals/I&O/Wt Last Vital Signs Temp 98.9 F 12/01/22 14:00 Pulse 134 H 12/01/22 14:00 Resp 17 12/01/22 14:00 BP 143/91 12/01/22 14:00 Pulse Ox 97 12/01/22 14:00 O2 Del Method Room Air 11/30/22 20:20 Data NPU 11/22/22 21:39 11/22/22 21:39 A&P Assessment and plan (1) Acute psychosis: (2) Bipolar disorder, current episode mixed, severe, without psychotic features: (3) Nicotine dependence due to vaping tobacco product: (4) Marijuana use, episodic: (5) Generalized anxiety disorder: (6) Post-traumatic stress disorder, chronic: Plan This is a 27-year-old female who has a long history of psychosis with a previous hospitalization on the neuropsychiatric unit for psychotic illness who returns on a 96-hour hold with an acute psychotic episode. Plan: 1.? Continue current medications. Restarted Invega 6 mg p.o. daily and consider restarting previous medications that were assisting with her outpatient functionality after last hospitalization. Invega Sustenna 234 mg IM to the deltoid for loading dose started 11/28/2022. 2.? Continue every 15 minute checks for safety. 3.? Encourage individual, group and milieu therapies. 4.? Encourage sober living treatment after discharge at the highest level of care to which she is willing to commit. 5. Submitted 21-day hold paperwork to the courts. Patient placed on a 21-day hold today, 12/01/2022 Involuntary Hold Information 96 Hour Hold: 96 Hour Involuntary Admission: Yes 96 Hour Hold Ending Date: 11/27/22 96 Hour Hold Ending Time: 00:01 Attestations NPU Medical Necessity Statement*: Inpatient hospitalization is medically necessary and the clinically appropriate intervention at this time. We will initiate medications and make changes as indicated. Likely length of stay 3-5 days Coding Level of Care Code Acute Code for [facility] Fwd Diagnoses Acute psychosis F23 Bipolar disorder, current episode mixed, severe, without psychotic features F31.63 Nicotine dependence due to vaping tobacco product F17.290 Marijuana use, episodic F12.90 Generalized anxiety disorder F41.1 Post-traumatic stress disorder, chronic F43.12
[2022-12-01 22:00] VITALS: BP 139/89; PULSE 127; RESP 17; TEMP 37.1; O2SAT 92
[2022-12-01] MEDS: CLONazepam 1 mg Tablet PO (22:23)
[2022-12-02] MEDS: OLANZapine 5 mg ODT PO ×2 (05:02→11:41)
[2022-12-02 06:00] VITALS: BP 125/86; PULSE 107; RESP 18; O2SAT 95
[2022-12-02] MEDS: paliperidone ER 6 mg Tablet PO (08:08)
[2022-12-02] MEDS: hyDROXYzine 25 mg Capsule 50 MG PO ×2 (08:12→21:39)
--- NOTE | 2022-12-02 08:14 | PC.NURSE ---
Patient reporting anxiety 11/19. This nurse administered patient 50mg Vistaril PO and will continue to monitor.
[2022-12-02] MEDS: nicotine 21 mg Patch 1 PATCH TRANSDERMA (08:43)
[2022-12-02] MEDS: acetaminophen 325 mg Tablet 650 MG PO ×2 (11:41→19:19)
--- NOTE | 2022-12-02 11:43 | PC.NURSE ---
Patient anxious and shaky. Patient reports that she had bad news on the phone about a friend. Patient given zyprexa 5mg ODT. Patient is returning to room to work on [employer] to distract herself. Will continue to closely monitor.
[2022-12-02] MEDS: quetiapine 25 mg Tablet PO ×2 (13:45→21:06)
--- NOTE | 2022-12-02 13:46 | P.NPUPN_ITS ---
Subjective NPU Subjective: Today reporting that she is doing okay. She reported feeling as if her Seroquel might be helpful for some of the anxiety that she is having. We discussed the risks, benefits and alternatives of restarting her Seroquel at 25 mg p.o. 3 times daily and she understood and agreed to proceed as is documented in this note. We discussed continuing to take her stay here a day at a time though she continues to be quite focused on getting out so that she can assist her and then move but we discussed concerns about her being well enough to be part of a stressful move and take care of her baby with her continued psychosis. Mental Status Exam MSE Comments: This is an obese white female in hospital scrubs with limited grooming and eye contact. No abnormal movements except for mild psychomotor agitation. Semicooperative with exam in mild to moderate distress. Speech was slightly increased rate and volume. Mood described as upset, affect timid and anxious, but congruent. Thought process disorganized but occasionally linear. Thought content: Patient denied suicidal or homicidal ideation, there were no delusions reported but she seemed to have somatic as well as paranoid delusions, she did not report auditory or visual hallucinations. Attention and concentration were limited and memory was unreliable but none were formally tested. She is alert and oriented times person and place. Insight and judgment are impaired impulse control is impaired. Vitals/I&O/Wt Last Vital Signs Temp 98.7 F 12/01/22 22:00 Pulse 107 H 12/02/22 06:00 Resp 18 12/02/22 06:00 BP 125/86 12/02/22 06:00 Pulse Ox 95 12/02/22 06:00 O2 Del Method Room Air 12/02/22 06:00 Data NPU 11/22/22 21:39 11/22/22 21:39 A&P Assessment and plan (1) Acute psychosis: (2) Bipolar disorder, current episode mixed, severe, without psychotic features: (3) Nicotine dependence due to vaping tobacco product: (4) Marijuana use, episodic: (5) Generalized anxiety disorder: (6) Post-traumatic stress disorder, chronic: Plan This is a 27-year-old female who has a long history of psychosis with a previous hospitalization on the neuropsychiatric unit for psychotic illness who returns on a 96-hour hold with an acute psychotic episode. Plan: 1.? Continue current medications. Restarted Invega 6 mg p.o. daily and consider restarting previous medications that were assisting with her outpatient functionality after last hospitalization. Invega Sustenna 234 mg IM to the deltoid for loading dose started 11/28/2022. Start her Seroquel 25 mg p.o. 3 times daily for anxiety and breakthrough psychosis. 2.? Continue every 15 minute checks for safety. 3.? Encourage individual, group and milieu therapies. 4.? Encourage sober living treatment after discharge at the highest level of care to which she is willing to commit. 5. Submitted 21-day hold paperwork to the courts. Patient placed on a 21-day hold, 12/01/2022 Involuntary Hold Information 96 Hour Hold: 96 Hour Involuntary Admission: Yes 96 Hour Hold Ending Date: 11/27/22 96 Hour Hold Ending Time: 00:01 Attestations NPU Medical Necessity Statement*: Inpatient hospitalization is medically necessary and the clinically appropriate intervention at this time. We will initiate medications and make changes as indicated. Likely length of stay 6-10 days Coding Level of Care Code Acute Code for [facility] Fwd Diagnoses Acute psychosis F23 Bipolar disorder, current episode mixed, severe, without psychotic features F31.63 Nicotine dependence due to vaping tobacco product F17.290 Marijuana use, episodic F12.90 Generalized anxiety disorder F41.1 Post-traumatic stress disorder, chronic F43.12
[2022-12-02 14:00] VITALS: BP 133/82; PULSE 125; RESP 16; TEMP 37.2; O2SAT 97
[2022-12-02 20:40] VITALS: BP 114/74; PULSE 137; RESP 16; O2SAT 98
[2022-12-02] MEDS: CLONazepam 1 mg Tablet PO (21:06)
[2022-12-02] MEDS: trazodone 50 mg Tablet PO (22:21)
[2022-12-03] MEDS: cetylpyridinium Lozenge 1 EACH MUCOUS MEM (05:26)
[2022-12-03 06:00] VITALS: BP 131/94; PULSE 120; RESP 18; TEMP 36.9; O2SAT 97
[2022-12-03] MEDS: hyDROXYzine 25 mg Capsule 50 MG PO (07:02)
[2022-12-03] MEDS: OLANZapine 5 mg ODT PO ×3 (07:44→18:59)
[2022-12-03] MEDS: quetiapine 25 mg Tablet PO ×3 (08:12→20:17)
[2022-12-03] MEDS: paliperidone ER 6 mg Tablet PO (08:12)
[2022-12-03] MEDS: acetaminophen 325 mg Tablet 650 MG PO (11:19)
[2022-12-03 14:00] VITALS: BP 136/82; PULSE 123; RESP 17; TEMP 37.1; O2SAT 97
--- NOTE | 2022-12-03 17:44 | P.NPUPN_ITS ---
Subjective NPU Subjective: Patient presented today seeming to become more able to express her thoughts without it being so tangential. She continues to become more focused on her discharge and trying to help her life partner get the packing done as they need to move. She is somewhat all over the place about the move but its appearing to be a possible location or two that has family supports. Mental Status Exam MSE Comments: This is an obese white female in hospital scrubs with limited grooming and eye contact. No abnormal movements except for mild psychomotor agitation. More cooperative with exam in mild distress. Speech was slightly decreased rate and volume. Mood described as better, just want to get home to help with the move, affect timid and anxious, but congruent. Thought process becoming more org anized and linear. Thought content: Patient denied suicidal or homicidal ideation, there were no delusions reported but she seemed to have somatic as well as paranoid delusions, she did not report auditory or visual hallucinations. Attention and concentration were proving some and memory was unreliable but none were formally tested. She is alert and oriented times person and place. Insight and judgment are impaired impulse control is impaired. Vitals/I&O/Wt Last Vital Signs Temp 98.9 F 12/03/22 20:18 Pulse 115 H 12/03/22 20:18 Resp 22 H 12/03/22 20:18 BP 141/107 12/03/22 20:18 Pulse Ox 98 12/03/22 20:18 O2 Del Method Room Air 12/03/22 20:18 12/03/22 12/03/22 12/04/22 14:59 22:59 06:59 Intake Total 1400 / 1400 Balance 1400 / 1400 Data NPU 11/22/22 21:39 11/22/22 21:39 A&P Assessment and plan (1) Acute psychosis: (2) Bipolar disorder, current episode mixed, severe, without psychotic features: (3) Nicotine dependence due to vaping tobacco product: (4) Marijuana use, episodic: (5) Generalized anxiety disorder: (6) Post-traumatic stress disorder, chronic: Plan This is a 27-year-old female who has a long history of psychosis with a previous hospitalization on the neuropsychiatric unit for psychotic illness who returns on a 96-hour hold with an acute psychotic episode. Plan: 1.? Continue current medications. Restarted Invega 6 mg p.o. daily and consider restarting previous medications that were assisting with her outpatient fun ctionality after last hospitalization. Invega Sustenna 234 mg IM to the deltoid for loading dose started 11/28/2022. Restart her Seroquel 25 mg p.o. 3 times daily for anxiety and breakthrough psychosis. Increase Seroquel to 50 mg. 2.? Continue every 15 minute checks for safety. 3.? Encourage individual, group and milieu therapies. 4.? Encourage sober living treatment after discharge at the highest level of care to which she is willing to commit. 5. Submitted 21-day hold paperwork to the courts. Patient placed on a 21-day hold, 12/01/2022 Involuntary Hold Information 96 Hour Hold: 96 Hour Involuntary Admission: Yes 96 Hour Hold Ending Date: 11/27/22 96 Hour Hold Ending Time: 00:01 Attestations NPU Medical Necessity Statement*: Inpatient hospitalization is medically necessary and the clinically appropriate intervention at this time. We will initiate medications and make changes as indicated. Likely length of stay 4-8 days Coding Level of Care Code Acute Code for [facility] Fwd Diagnoses Acute psychosis F23 Bipolar disorder, current episode mixed, severe, without psychotic features F31.63 Nicotine dependence due to vaping tobacco product F17.290 Marijuana use, episodic F12.90 Generalized anxiety disorder F41.1 Post-traumatic stress disorder, chronic F43.12
[2022-12-03 17:51] LABS: Glucose Point of Care 103 mg/dL (70-110)
--- NOTE | 2022-12-03 19:05 | PC.NURSE ---
Beginning at around 1800, patient became agitated, yelling about the voices that she is hearing, wanting them to stop. Patient pacing the cooley. Patient banging on the windows in her room and in the extra room outside of her room. This nurse attempted to verbally de-esculate patient, with no success. Patient stated that she is going to kill herself while she is here. Patient took a comb to her arm, scraping her arm, attempting to harm herself. Staff removed comb from patient with no issue. Patient given oral B52. When dinner arrived, patient left her room and was calm as she made her way to the dayroom, calmly. Patient ate dinner, then returned, wanting to get a shot. Patient stated that the voices were now telling her to hurt other people. Patient slamming doors, hitting the windows. Patient encouraged to rest on her bed. Three nurses attempted to de-esculate patient, with no success. Security called. Patient hitting windows and yelling. Patient given 40mg Geodon PO. Patient asked if it didn't work, if she would receive shots. This nurse informed her that not necessarily, it would be up to the doctor. Patient upset by this, demanding to talk to Dr. Kang. Dr. Kang arrived on unit. After attempting to talk with patient, Dr. Kang informed us to put patient in seclusion. With the aid of Pablo VEGA, and Frank from Security, Dr. Kang, this nurse, NORBERT Burns and Kevin Kearney escorted patient to seclusion with no issue. No hands were put on patient. Patient now in seclusion with staff present outside of room.
[2022-12-03] MEDS: CLONazepam 1 mg Tablet PO (20:17)
[2022-12-03] MEDS: haloperidol 5 mg Tablet PO (20:17)
[2022-12-03 20:18] VITALS: BP 141/107; PULSE 115; RESP 22; TEMP 37.2; O2SAT 98
[2022-12-04] MEDS: hyDROXYzine 25 mg Capsule 50 MG PO ×3 (05:23→19:50)
[2022-12-04 06:00] VITALS: BP 126/86; PULSE 115; RESP 16; O2SAT 94
[2022-12-04] MEDS: paliperidone ER 6 mg Tablet PO (09:18)
[2022-12-04] MEDS: quetiapine 25 mg Tablet 50 MG PO ×3 (09:19→21:18)
[2022-12-04] MEDS: loratadine 10 mg Tablet PO (09:20)
[2022-12-04] MEDS: nicotine 21 mg Patch 1 PATCH TRANSDERMA (10:08)
[2022-12-04] MEDS: acetaminophen 325 mg Tablet 650 MG PO (13:28)
[2022-12-04 14:00] VITALS: BP 130/84; PULSE 125; RESP 16; TEMP 36.6; O2SAT 99
[2022-12-04] MEDS: OLANZapine 5 mg ODT PO (15:21)
--- NOTE | 2022-12-04 17:01 | W.PM.NPUPNS ---
Subjective NPU Subjective: Presented today continuing to focus on getting out to help her significant other with her wound. Staff reports of her being more redirectable and having improvement in her overall functioning. She endorsed feeling better with the increase in her Seroquel. She denied any side effects of the medication. Mental Status Exam MSE Comments: This is an obese white female in hospital scrubs with limited grooming and eye contact. No abnormal movements except for mild psychomotor agitation. More cooperative with exam in mild distress. Speech was slightly decreased rate and volume. Mood described as better, just want to get home to help with the move, affect timid and anxious, but congruent. Thought process becoming more organized and linear. Thought content: Patient denied suicidal or homicidal ideation, there were no delusions reported but she seemed to have diminishing somatic as well as paranoid delusions, she did not report auditory or visual hallucinations. Attention and concentration were proving some and memory was unreliable but none were formally tested. She is alert and oriented times person and place. Insight and judgment are improving but limited, impulse control is impaired, but improving. Vitals/I&O/Wt Last Vital Signs Temp 97.8 F 12/04/22 14:00 Pulse 125 H 12/04/22 14:00 Resp 16 12/04/22 14:00 BP 130/84 12/04/22 14:00 Pulse Ox 99 12/04/22 14:00 O2 Del Method Room Air 12/04/22 14:00 Data NPU 11/22/22 21:39 11/22/22 21:39 A&P Assessment and plan (1) Acute psychosis: (2) Bipolar disorder, current episode mixed, severe, without psychotic features: (3) Nicotine dependence due to vaping tobacco product: (4) Marijuana use, episodic: (5) Generalized anxiety disorder: (6) Post-traumatic stress disorder, chronic: Plan This is a 27-year-old female who has a long history of psychosis with a previous hospitalization on the neuropsychiatric unit for psychotic illness who returns on a 96-hour hold with an acute psychotic episode. Plan: 1.? Continue current medications. Restarted Invega 6 mg p.o. daily and consider restarting previous medications that were assisting with her outpatient functionality after last hospitalization. Invega Sustenna 234 mg IM to the deltoid for loading dose started 11/28/2022. Need second loading dose of Invega Sustenna 156 mg IM to the deltoid 12/05/2022. Next injection Invega Sustenna 156 mg IM will be due 01/01/2023. Restarted her Seroquel 25 mg p.o. 3 times daily for anxiety and breakthrough psychosis. Increased Seroquel to 50 mg today. 2.? Continue every 15 minute checks for safety. 3.? Encourage individual, group and milieu therapies. 4.? Encourage sober living treatment after discharge at the highest level of care to which she is willing to commit. 5. Submitted 21-day hold paperwork to the courts. Patient placed on a 21-day hold, 12/01/2022 Involuntary Hold Information 96 Hour Hold: 96 Hour Involuntary Admission: Yes 96 Hour Hold Ending Date: 11/27/22 96 Hour Hold Ending Time: 00:01 Attestations NPU Medical Necessity Statement*: Inpatient hospitalization is medically necessary and the clinically appropriate intervention at this time. We will initiate medications and make changes as indicated. Likely length of stay 3-7 days Coding Level of Care Code Acute Code for [facility] Fwd Diagnoses Acute psychosis F23 Bipolar disorder, current episode mixed, severe, without psychotic features F31.63 Nicotine dependence due to vaping tobacco product F17.290 Marijuana use, episodic F12.90 Generalized anxiety disorder F41.1 Post-traumatic stress disorder, chronic F43.12
[2022-12-04 20:22] VITALS: BP 144/98; PULSE 133; RESP 20; TEMP 37.2; O2SAT 97
[2022-12-04] MEDS: CLONazepam 1 mg Tablet PO (21:18)
[2022-12-05] MEDS: cetylpyridinium Lozenge 1 EACH MUCOUS MEM (05:50)
[2022-12-05 06:00] VITALS: BP 127/88; PULSE 110; RESP 20; O2SAT 98
[2022-12-05] MEDS: hyDROXYzine 25 mg Capsule 50 MG PO ×3 (06:37→11:39)
[2022-12-05] MEDS: quetiapine 25 mg Tablet 50 MG PO ×3 (09:14→19:48)
[2022-12-05] MEDS: paliperidone ER 6 mg Tablet PO (09:15)
[2022-12-05] MEDS: acetaminophen 325 mg Tablet 650 MG PO ×2 (11:35→22:41)
[2022-12-05] MEDS: nicotine 21 mg Patch 1 PATCH TRANSDERMA (13:30)
[2022-12-05 13:36] VITALS: BP 137/88; PULSE 107; RESP 18; TEMP 36.7; O2SAT 98
[2022-12-05] MEDS: OLANZapine 5 mg ODT PO (17:01)
--- NOTE | 2022-12-05 18:28 | W.PM.NPUPNS ---
Subjective NPU Subjective: Patient presented today continuing to be quite focused on the move and the fact that her significant other is less skilled and some of the demands that are required in this moment. We discussed the importance of her getting better to be able to be a real help. We discussed the need for second injection of loading dose of Invega Sustenna 156 mg IM to the deltoid. We discussed her discharge hopefully being in the next week. Mental Status Exam MSE Comments: This is an obese white female in hospital scrubs with improving grooming and eye contact. No abnormal movements except for mild psychomotor agitation. More cooperative with exam in mild distress. Speech was slightly decreased rate and volume. Mood described as better, just want to get home to help with the move, affect less timid and anxious, but congruent. Thought process becoming more organized and linear. Thought content: Patient denied suicidal or homicidal ideation, there were no delusions reported but she seemed to have diminishing somatic as well as paranoid delusions, she did not report auditory or visual hallucinations. Attention and concentration were proving some and memory was unreliable but none were formally tested. She is alert and oriented times person and place. Insight and judgment are improving but limited, impulse control is improving. Vitals/I&O/Wt Last Vital Signs Temp 98.2 F 12/05/22 20:38 Pulse 129 H 12/05/22 20:38 Resp 18 12/05/22 20:38 BP 127/93 12/05/22 20:38 Pulse Ox 96 12/05/22 20:38 O2 Del Method Room Air 12/05/22 20:38 Weight last 48 hrs Weight 88.088 kg Data NPU 11/22/22 21:39 11/22/22 21:39 A&P Assessment and plan (1) Acute psychosis: (2) Bipolar disorder, current episode mixed, severe, without psychotic features: (3) Nicotine dependence due to vaping tobacco product: (4) Marijuana use, episodic: (5) Generalized anxiety disorder: (6) Post-traumatic stress disorder, chronic: Plan This is a 27-year-old female who has a long history of psychosis with a previous hospitalization on the neuropsychiatric unit for psychotic illness who returns on a 96-hour hold with an acute psychotic episode. Plan: 1.? Continue current medications. Restarted Invega 6 mg p.o. daily and consider restarting previous medications that were assisting with her outpatient functionality after last hospitalization. Invega Sustenna 234 mg IM to the deltoid for loading dose started 11/28/2022. Need second loading dose of Invega Sustenna 156 mg IM to the deltoid 12/05/2022. Next injection Invega Sustenna 156 mg IM will be due 01/01/2023. Restarted her Seroquel 25 mg p.o. 3 times daily for anxiety and breakthrough psychosis. Increased Seroquel to 50 mg today. 2.? Continue every 15 minute checks for safety. 3.? Encourage individual, group and milieu therapies. 4.? Encourage sober living treatment after discharge at the highest level of care to which she is willing to commit. 5. Submitted 21-day hold paperwork to the courts. Patient placed on a 21-day hold, 12/01/2022 Involuntary Hold Information 96 Hour Hold: 96 Hour Involuntary Admission: Yes 96 Hour Hold Ending Date: 11/27/22 96 Hour Hold Ending Time: 00:01 Attestations NPU Medical Necessity Statement*: Inpatient hospitalization is medically necessary and the clinically appropriate intervention at this time. We will initiate medications and make changes as indicated. Likely length of stay 2-7 days Coding Level of Care Code Acute Code for [facility] Fwd Diagnoses Acute psychosis F23 Bipolar disorder, current episode mixed, severe, without psychotic features F31.63 Nicotine dependence due to vaping tobacco product F17.290 Marijuana use, episodic F12.90 Generalized anxiety disorder F41.1 Post-traumatic stress disorder, chronic F43.12
[2022-12-05] MEDS: CLONazepam 1 mg Tablet PO (19:48)
--- NOTE | 2022-12-05 19:49 | PC.NURSE ---
PT AT NURSES STATION REQUESTING NIGHT TIME MEDICATIONS EARLY DUE TO HAVING SEVERE SEVERE ANXIETY. THAT WAS NOT RELIEVED BY ZYPREXA EARLIER AT 1700. PT WAS GIVEN HER SEROQUEL AND KLONOPIN ORDERED FOR BEDTIME. PT IS OBSERVED PACING AND FIDGETING. SUPPORT VOICED.
--- NOTE | 2022-12-05 20:27 | PC.NURSE ---
ASSESSMENT COMPLETED IN PT ROOM, NIGHT TIME MEDICATIONS GIVEN APPROXIMATELY 12 MINUTES EARLY PER PT REQUEST DUE TO PT BEING SEVERELY ANXIOUS. PT WAS GIVEN ZYPREXA 5 MG AT 1700 LAST SHIFT. PT STATED IT IS NOT WORKING. PT DENIES PAIN, HI,AND AVH. DOES STATE SHE IS SUICIDAL WITH NO PLAN, THAT SHE IS UPSET HER BABY IS IN ANOTHER TOWN AND SHE ONLY HAS A $1.92 IN [place]. PT VOICES MULTIPLE CONCERNS AND REQUESTING THINGS SUCH SHOES WITH NO LACES, A RIDE FROM MEDICAID AND STUFF FOR MY FLAT FEET. THIS RN ASKED WHAT SHE COULD DO TO HELP HER RIGHT NOW, PT STATED JUST GIVE ME MY NIGHT TIME MEDS WITH NO HALDOL. PT REQUEST MET. SUPPORT VOICED. ALL QUESTIONS ANSWERED.
[2022-12-05 20:38] VITALS: BP 127/93; PULSE 129; RESP 18; TEMP 36.8; O2SAT 96
[2022-12-05] MEDS: trazodone 50 mg Tablet PO (22:40)
--- NOTE | 2022-12-05 22:48 | PC.NURSE ---
PT REQUEST MEDICATION TO HELP HER SLEEP. PT WAS GIVEN TRAZODONE 50 MG ORDERED. PT IS STILL AWAKE AND HAS NOT LAID DOWN. ENCOURAGED TO GO TO SLEEP AND GO TO ROOM. PT DECLINED.
[2022-12-06 06:00] VITALS: BP 136/83; PULSE 122; RESP 18; TEMP 36.8; O2SAT 98
[2022-12-06] MEDS: hyDROXYzine 25 mg Capsule 50 MG PO (06:02)
[2022-12-06] MEDS: cetylpyridinium Lozenge 1 EACH MUCOUS MEM (06:05)
--- NOTE | 2022-12-06 06:06 | PC.NURSE ---
PT UP TO NURSES STATION REQUESTING SOMETHING FOR NIGHT TERRORS. PT HAS SLEPT APPROXIMATELY 2 HOURS THIS SHIFT. PT HAS BEEN UP CRYING AND PACING THE HALLS. WHEN PT REQUESTS ANYTHING SHE MUMBLES AND WHISPERS. RN ASK PT TO SPEAK UP BUT PT WILL NOT. PT WAS GIVEN VISTARIL 50 MG FOR ANXIETY. PT NEEDS MET. PT THEN WENT TO DAY ROOM TO ORGANIZE CRAYONS AGAIN.
--- NOTE | 2022-12-06 07:18 | W.PM.NPUPNS ---
Subjective NPU Subjective: Patient presented today continuing to have stress about the move and reporting that her addiction has transpired. We discussed her receiving her second loading dose of Invega Sustenna today and being hopeful that she can be discharged sometime this week. We discussed that Dr. Elliott will be coming tomorrow to take over care to make those decisions. We continue to stress the importance of her being well enough to be participating in the stressful moving situations as well as care of an essentially . Mental Status Exam MSE Comments: This is an obese white female in hospital scrubs with improving grooming and eye contact. No abnormal movements except for mild psychomotor agitation. More cooperative with exam in mild distress. Speech was slightly decreased rate and volume. Mood described as better, just want to get home to help with the move, affect less timid and anxious, but congruent. Thought process becoming more organized and linear. Thought content: Patient denied suicidal or homicidal ideation, there were no delusions reported but she seemed to have diminishing somatic as well as paranoid delusions, she did not report auditory or visual hallucinations. Attention and concentration were proving some and memory was unreliable but none were formally tested. She is alert and oriented times person and place. Insight and judgment are improving but limited, impulse control is improving. Vitals/I&O/Wt Last Vital Signs Temp 98.2 F 12/06/22 06:00 Pulse 122 H 12/06/22 06:00 Resp 18 12/06/22 06:00 BP 136/83 12/06/22 06:00 Pulse Ox 98 12/06/22 06:00 O2 Del Method Room Air 12/05/22 20:38 Weight last 48 hrs Weight 88.088 kg Data NPU 11/22/22 21:39 11/22/22 21:39 A&P Assessment and plan (1) Acute psychosis: (2) Bipolar disorder, current episode mixed, severe, without psychotic features: (3) Nicotine dependence due to vaping tobacco product: (4) Marijuana use, episodic: (5) Generalized anxiety disorder: (6) Post-traumatic stress disorder, chronic: Plan This is a 27-year-old female who has a long history of psychosis with a previous hospitalization on the neuropsychiatric unit for psychotic illness who returns on a 96-hour hold with an acute psychotic episode. Plan: 1.? Continue current medications. Restarted Invega 6 mg p.o. daily and consider restarting previous medications that were assisting with her outpatient functionality after last hospitalization. Invega Sustenna 234 mg IM to the deltoid for loading dose started 11/28/2022. Given second loading dose of Invega Sustenna 156 mg IM to the deltoid 12/06/2022. Next injection Invega Sustenna 156 mg IM will be due 01/01/2023. Restarted her Seroquel 25 mg p.o. 3 times daily for anxiety and breakthrough psychosis. Increased Seroquel to 50 mg today. 2.? Continue every 15 minute checks for safety. 3.? Encourage individual, group and milieu therapies. 4.? Encourage sober living treatment after discharge at the highest level of care to which she is willing to commit. 5. Submitted 21-day hold paperwork to the courts. Patient placed on a 21-day hold, 12/01/2022 Involuntary Hold Information 96 Hour Hold: 96 Hour Involuntary Admission: Yes 96 Hour Hold Ending Date: 11/27/22 96 Hour Hold Ending Time: 00:01 Attestations NPU Medical Necessity Statement*: Inpatient hospitalization is medically necessary and the clinically appropriate intervention at this time. We will initiate medications and make changes as indicated. Likely length of stay 2-6 days Coding Level of Care Code Acute Code for [facility] Fwd Diagnoses Acute psychosis F23 Bipolar disorder, current episode mixed, severe, without psychotic features F31.63 Nicotine dependence due to vaping tobacco product F17.290 Marijuana use, episodic F12.90 Generalized anxiety disorder F41.1 Post-traumatic stress disorder, chronic F43.12
[2022-12-06] MEDS: quetiapine 25 mg Tablet 50 MG PO ×3 (08:03→20:32)
[2022-12-06] MEDS: paliperidone ER 6 mg Tablet PO (08:03)
[2022-12-06] MEDS: nicotine 21 mg Patch 1 PATCH TRANSDERMA (08:30)
--- NOTE | 2022-12-06 08:30 | PC.NURSE ---
Patient denies avh and si/hi. Patient states she didn't sleep at all last night due to increasing anxiety. She says she can't stop thinking about moving soon and about her ex-roommate calling her a deadbeat mom. Patient then went on a tangent about applying for food stamps and being a mother. She changed topics frequently and the topics were seemingly unrelated. She then requested her morning medications very early and staff explained that we could not administer them early. Patient then went to her room and very briefly banged her head against the wall. She was redirectable, but appeared to be agitated.
[2022-12-06] MEDS: OLANZapine 5 mg ODT PO ×2 (09:30→13:27)
[2022-12-06] MEDS: paliperidone palmitate 156 mg Syringe IM (09:42)
--- NOTE | 2022-12-06 09:43 | PC.NURSE ---
MARYJO SUSTENNA 156 MG GIVEN IM PER PHYSICIAN ORDER. INJECTION GIVEN IN RIGHT DELTOID. PT TOLERATED INJECTION WELL. WILL CONT TO MONITOR INJECTION SITE FOR ANY REDNESS, SWELLING, OR IRRITATION. LOT [id number] EXP 04/2024
[2022-12-06 14:00] VITALS: BP 134/84; PULSE 124; RESP 16; TEMP 36.8; O2SAT 98
[2022-12-06] MEDS: acetaminophen 325 mg Tablet 650 MG PO (18:36)
[2022-12-06] MEDS: CLONazepam 1 mg Tablet PO ×2 (20:32→23:38)
[2022-12-06] MEDS: trazodone 50 mg Tablet PO (20:32)
--- NOTE | 2022-12-06 20:39 | PC.NURSE ---
N ROOM NAKED SITTING IN THE FLOOR. PT IS DELUSIONAL STATING I THINK I HAVE CANCER. RN ASKED WHY SHE SAYS THIS PT STATES I SAW IT ON MY JEROME, ITS REAL. PT EDUCATED THAT SOCIAL WORK WILL SET UP APTS FOR WHEN SHE IS DISCHARGED AND SHE CAN LOOK INTO THAT LATER ONCE SHE IS BETTER. PT ENDORSES SUICIDAL THOUGHTS THAT ARE PASSING WITH NO PLAN, DENIES HI AND AVH AT THIS TIME. PT STATES SHE IS HAVING PAIN IN HER TOE AND REQUEST SOMETHING FOR PAIN. PT ALSO STATES SHE IS VERY ANXIOUS AND NEEDS SOMETHING FOR ANXIETY. PT IS DELUSIONAL AND MAKES SOMATIC STATEMENTS ABOUT HER TOE. MED NURSE NOTIFIED TO GIVE PT SOMETHING FOR PAIN, ANXIETY AND INSOMNIA. PT HAS BEEN REDIRECTED MULTIPLE TIMES TO GET OUT OF THE FLOOR AND GET DRESSED BUT DECLINES. NURSE TECH IN ROOM ASSISTING HER. ALL QUESTIONS ANSWERED AND SUPPORT VOICED.
[2022-12-06 20:58] VITALS: RESP 18
--- NOTE | 2022-12-06 23:38 | PC.NURSE ---
PT CONTINUES TO GET UP, COME TO NURSES STATION, THEN GO TO PHONE AND SLAM IT DOWN, DUE TO THE PHONE BEING OFF AFTER 1000 PM. PT STATES SHE IS MAD BECAUSE YOU KEEP GIVING ME HALDOL. RN EDUCATED PT THAT THIS RN HAS NOT GIVEN HER HALDOL THIS SHIFT. PT CONTINUES TO ASK FOR VARIOUS ITEMS SUCH PANTS BECAUSE MY CERVIX HURTS. PT OFFERED TYLENOL BUT PT DECLINES. PT WAS GIVEN SECOND DOSE OF CLONAZEPAM 1 MG DUE TO PT NOT RESTING. PT DID TAKE THE MEDICATIONS WITHOUT ANY ISSUES. PT THEN STOMPED OFF AND WENT TO ROOM.
[2022-12-07 06:00] VITALS: RESP 16
--- NOTE | 2022-12-07 06:18 | PC.NURSE ---
PT HAS SLEPT THE LAST 4-5 HOURS. CLONAZEPAM EFFECTIVE.
[2022-12-07] MEDS: quetiapine 25 mg Tablet 50 MG PO ×2 (08:25→13:59)
[2022-12-07] MEDS: paliperidone ER 6 mg Tablet PO (08:25)
[2022-12-07] MEDS: nicotine 21 mg Patch 1 PATCH TRANSDERMA (08:25)
[2022-12-07] MEDS: cetylpyridinium Lozenge 1 EACH MUCOUS MEM (10:07)
[2022-12-07] MEDS: hyDROXYzine 25 mg Capsule 50 MG PO (10:24)
--- NOTE | 2022-12-07 10:26 | PC.NURSE ---
PRN VISTARIL 50 MG GIVEN PO PER PT C/O STATED ANXIETY, MED SEEKING BEHAVIOR NOTED
[2022-12-07 14:00] VITALS: BP 121/87; PULSE 128; RESP 20; TEMP 37.2; O2SAT 98
[2022-12-07] MEDS: acetaminophen 325 mg Tablet 650 MG PO (14:36)
--- NOTE | 2022-12-07 17:05 | W.PM.NPUPNS ---
Subjective NPU Subjective: The patient is a 27-year-old white female admitted with psychosis and disorganized behavior. She continued to appear somewhat disorganized. She had expressed having been tried on multiple medications. She had stated that she needed something to help her with depression. She had reported having overwhelming worry. She stated that she felt that she may have cervical cancer. She reported that she had thoughts that others were somehow influencing her and stated that she needed help for a variety of medical problems. She had also stated that she needed new glasses that she had never had her eyes examined since the fourth grade. She had repeatedly made request of staff to continue to follow-up with her multiple medical complaints. Mental Status Exam MSE Comments: This is an obese white female in hospital scrubs with limited grooming and fair eye contact. No abnormal movements except for mild psychomotor agitation. She was cooperative with exam in moderate distress. Speech was slightly decreased rate and volume. Mood described as stressed. Her affect was bizarre. Thought process becoming more organized and linear. Thought content: Patient denied suicidal or homicidal ideation, there did appear to be some somatic delusions and general overall paranoia. Attention and concentration appeared poor. She is alert and oriented times person and place. Insight is poor. Her judgment appeared limited. Her impulse control appeared poor as well. Vitals/I&O/Wt Last Vital Signs Temp 98.9 F 12/07/22 14:00 Pulse 128 H 12/07/22 14:00 Resp 20 H 12/07/22 14:00 BP 121/87 12/07/22 14:00 Pulse Ox 98 12/07/22 14:00 O2 Del Method Room Air 12/06/22 14:00 Weight last 48 hrs Weight 88.088 kg Data NPU 11/22/22 21:39 11/22/22 21:39 A&P Assessment and plan (1) Acute psychosis: (2) Bipolar disorder, current episode mixed, severe, without psychotic features: (3) Nicotine dependence due to vaping tobacco product: (4) Marijuana use, episodic: (5) Generalized anxiety disorder: (6) Post-traumatic stress disorder, chronic: Plan This is a 27-year-old female who has a long history of psychosis with a previous hospitalization on the neuropsychiatric unit for psychotic illness who returns on a 96-hour hold with an acute psychotic episode. Plan: 1.? Continue current medications. Restarted Invega 6 mg p.o. daily and consider restarting previous medications that were assisting with her outpatient functionality after last hospitalization. Invega Sustenna 234 mg IM to the deltoid for loading dose started 11/28/2022. Given second loading dose of Invega Sustenna 156 mg IM to the deltoid 12/06/2022. Next injection Invega Sustenna 156 mg IM will be due 01/01/2023. D/C seroquel at this time. 2.? Continue every 15 minute checks for safety. 3.? Encourage individual, group and milieu therapies. 4.? Encourage sober living treatment after discharge at the highest level of care to which she is willing to commit. 5. Submitted 21-day hold paperwork to the courts. Patient placed on a 21-day hold, 12/01/2022 Involuntary Hold Information 96 Hour Hold: 96 Hour Involuntary Admission: Yes 96 Hour Hold Ending Date: 11/27/22 96 Hour Hold Ending Time: 00:01 Attestations NPU Medical Necessity Statement*: Inpatient hospitalization is medically necessary and the clinically appropriate intervention at this time. We will initiate medications and make changes as indicated. Likely length of stay is 3-6 days. Coding Level of Care Code Acute Code for g Fwd Diagnoses Acute psychosis F23 Bipolar disorder, current episode mixed, severe, without psychotic features F31.63 Nicotine dependence due to vaping tobacco product F17.290 Marijuana use, episodic F12.90 Generalized anxiety disorder F41.1 Post-traumatic stress disorder, chronic F43.12
[2022-12-07] MEDS: trazodone 50 mg Tablet PO (20:42)
[2022-12-07] MEDS: CLONazepam 1 mg Tablet PO (20:43)
[2022-12-07 21:08] VITALS: BP 135/89; PULSE 114; RESP 15; O2SAT 98
[2022-12-08] MEDS: acetaminophen 325 mg Tablet 650 MG PO ×3 (02:36→19:31)
--- NOTE | 2022-12-08 05:47 | PC.NURSE ---
Earlier in the shift pt brought her glasses to the desk stating she got mad and broke them. supervisor mixing brought glue to fix the pts glasses, pt then returned to the desk again stating she was dancing around and she broke her glasses again. Glasses removed from pt.
[2022-12-08 06:00] VITALS: BP 118/83; PULSE 107; RESP 20; O2SAT 98
[2022-12-08] MEDS: hyDROXYzine 25 mg Capsule 50 MG PO ×2 (06:34→13:16)
[2022-12-08] MEDS: paliperidone ER 6 mg Tablet PO (09:00)
[2022-12-08] MEDS: nicotine 21 mg Patch 1 PATCH TRANSDERMA (09:00)
[2022-12-08] MEDS: OLANZapine 5 mg ODT PO ×2 (09:35→16:20)
[2022-12-08] MEDS: loratadine 10 mg Tablet PO (11:24)
[2022-12-08 14:00] VITALS: BP 139/99; PULSE 138; RESP 16; O2SAT 95
--- NOTE | 2022-12-08 18:16 | W.PM.NPUPNS ---
Subjective NPU Subjective: The patient is a 27-year-old white female admitted with psychosis and disorganized behavior. The patient had shown some evidence of continued agitation. She had broken her glasses out of anger. She had continued to make request for multiple medical issues and remained somewhat obsessed with the discussion of medical issues that did not appear to show any clear basis for needing treatment. She had had very little sleep last night in the absence of taking Seroquel. She had reported having depression and reported having chronic problems with anxiety. She had continued to endorse seeing and hearing people and reported feeling scared by the presence of others. Patient had struggled with falling asleep last night. Mental Status Exam MSE Comments: This is an obese white female in hospital scrubs with limited grooming and fair eye contact who appeared to be excessively intrusive often following the typewriter mechanic of this note throughout the cooley. No abnormal movements except for mild psychomotor agitation. She was cooperative with exam in moderate distress. Speech was increased in rate and normal in volume. Mood described as anxious. Her affect remained odd and subdued. Thought process remained circumstantial and overly elaborative at times. Thought content: Patient denied suicidal or homicidal ideation, there did appear to be some somatic delusions and general overall paranoia. Attention and concentration appeared poor. She is alert and oriented times person and place. Insight is poor. Her judgment appeared limited. Her impulse control appeared poor as well. Vitals/I&O/Wt Last Vital Signs Temp 98.9 F 12/07/22 14:00 Pulse 138 H 12/08/22 14:00 Resp 16 12/08/22 14:00 BP 139/99 12/08/22 14:00 Pulse Ox 95 12/08/22 14:00 O2 Del Method Room Air 12/08/22 14:00 Data NPU 11/22/22 21:39 11/22/22 21:39 A&P Assessment and plan (1) Acute psychosis: (2) Bipolar disorder, current episode mixed, severe, without psychotic features: (3) Nicotine dependence due to vaping tobacco product: (4) Marijuana use, episodic: (5) Generalized anxiety disorder: (6) Post-traumatic stress disorder, chronic: Plan This is a 27-year-old female who has a long history of psychosis with a previous hospitalization on the neuropsychiatric unit for psychotic illness who returns on a 96-hour hold with an acute psychotic episode. Plan: 1.? Continue current medications. Restarted Invega 6 mg p.o. daily and consider restarting previous medications that were assisting with her outpatient functionality after last hospitalization. Invega Sustenna 234 mg IM to the deltoid for loading dose started 11/28/2022. Given second loading dose of Invega Sustenna 156 mg IM to the deltoid 12/06/2022. Next injection Invega Sustenna 156 mg IM will be due 01/01/2023. Restarted Seroquel xr 100mg tonight, continue klonopin at night. 2.? Continue every 15 minute checks for safety. 3.? Encourage individual, group and milieu therapies. 4.? Encourage sober living treatment after discharge at the highest level of care to which she is willing to commit. 5. Submitted 21-day hold paperwork to the courts. Patient placed on a 21-day hold, 12/01/2022 Involuntary Hold Information 96 Hour Hold: 96 Hour Involuntary Admission: Yes 96 Hour Hold Ending Date: 11/27/22 96 Hour Hold Ending Time: 00:01 Attestations NPU Medical Necessity Statement*: Inpatient hospitalization is medically necessary and the clinically appropriate intervention at this time. We will initiate medications and make changes as indicated. Likely length of stay is 3-6 days. Coding Level of Care Code Acute Code for [facility] Fwd Diagnoses Acute psychosis F23 Bipolar disorder, current episode mixed, severe, without psychotic features F31.63 Nicotine dependence due to vaping tobacco product F17.290 Marijuana use, episodic F12.90 Generalized anxiety disorder F41.1 Post-traumatic stress disorder, chronic F43.12
[2022-12-08] MEDS: quetiapine XR (24HR) 50 mg Tablet 100 MG PO ×2 (18:24→20:14)
[2022-12-08 19:48] VITALS: BP 125/81; PULSE 123; RESP 17; TEMP 36.8; O2SAT 98
[2022-12-08] MEDS: CLONazepam 1 mg Tablet PO (20:14)
[2022-12-08] MEDS: trazodone 50 mg Tablet PO (20:37)
[2022-12-09] MEDS: hyDROXYzine 25 mg Capsule 50 MG PO ×3 (02:18→16:06)
[2022-12-09 06:00] VITALS: BP 119/84; PULSE 111; RESP 15; TEMP 36.9; O2SAT 98
[2022-12-09] MEDS: loratadine 10 mg Tablet PO (06:18)
[2022-12-09] MEDS: paliperidone ER 6 mg Tablet PO (08:23)
[2022-12-09] MEDS: cetylpyridinium Lozenge 1 EACH MUCOUS MEM (09:09)
[2022-12-09] MEDS: nicotine 21 mg Patch 1 PATCH TRANSDERMA (10:13)
[2022-12-09] MEDS: OLANZapine 5 mg ODT PO (10:13)
[2022-12-09] MEDS: acetaminophen 325 mg Tablet 650 MG PO ×2 (10:34→16:10)
[2022-12-09 14:00] VITALS: BP 124/83; PULSE 122; RESP 16; TEMP 36.6; O2SAT 96
--- NOTE | 2022-12-09 16:08 | P.NPUPN_ITS ---
Subjective NPU Subjective: The patient is a 27-year-old white female admitted with psychosis and disorganized behavior. Patient had reported improved sleep with the reinitiation of Seroquel. She had reported continued worries about a variety of medical problems. 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 She had denied having any racing thoughts. She had continued to make bizarre statements on the milieu. She reported problems with concentration. The patient had reported a previously good response on lithium and was willing to restart this medication at a lower dose to see if it may stabilize her mood. She had stated that prior to becoming she had been stable on her lithium approximately a year and a half ago. Mental Status Exam MSE Comments: This is an obese white female in hospital scrubs with limited grooming and fair eye contact who appeared to be excessively intrusive often following the comic book writer of this note throughout the cooley. No abnormal movements except for mild psychomotor activation. She was cooperative with exam in moderate distress. Speech was increased in rate and normal in volume. Mood described as okay. Her affect remained labile. Thought process appeared tangential at times. Thought content: Patient denied suicidal or homicidal ideation, there did appear to be some somatic delusions and general overall paranoia. Attention and concentration appeared poor. She is alert and oriented times person and place. Insight is poor. Her judgment appeared limited. Her impulse control appeared p oor as well. Vitals/I&O/Wt Last Vital Signs Temp 98 F 12/09/22 14:00 Pulse 122 H 12/09/22 14:00 Resp 16 12/09/22 14:00 BP 124/83 12/09/22 14:00 Pulse Ox 96 12/09/22 14:00 O2 Del Method Room Air 12/09/22 14:00 Data NPU 11/22/22 21:39 11/22/22 21:39 A&P Assessment and plan (1) Acute psychosis: (2) Bipolar disorder, current episode mixed, severe, without psychotic features: (3) Nicotine dependence due to vaping tobacco product: (4) Marijuana use, episodic: (5) Generalized anxiety disorder: (6) Post-traumatic stress disorder, chronic: Plan This is a 27-year-old female who has a long history of psychosis with a previous hospitalization on the neuropsychiatric unit for psychotic illness who returns on a 96-hour hold with an acute psychotic episode. Plan: 1.? Continue current medications. Restarted Invega 6 mg p.o. daily and consider restarting previous medications that were assisting with her outpatient functionality after last hospitalization. Invega Sustenna 234 mg IM to the deltoid for loading dose started 11/28/2022. Given second loading dose of Invega Sustenna 156 mg IM to the deltoid 12/06/2022. Next injection Invega Sustenna 156 mg IM will be due 01/01/2023. Increase Seroquel xr 150mg tonight, reduce klonopin .5mg at night. ADD [place] 300mg bid. 2.? Continue every 15 minute checks for safety. 3.? Encourage individual, group and milieu therapies. 4.? Encourage sober living treatment after discharge at the highest level of care to which she is willing to commit. 5. Submitted 21-day hold paperwork to the courts. Patient placed on a 21-day hold, 12/01/2022 Involuntary Hold Information 96 Hour Hold: 96 Hour Involuntary Admission: Yes 96 Hour Hold Ending Date: 11/27/22 96 Hour Hold Ending Time: 00:01 Attestations NPU Medical Necessity Statement*: Inpatient hospitalization is medically necessary and the clinically appropriate intervention at this time. We will initiate medications and make changes as indicated. Likely length of stay is 5-10 days. Coding Level of Care Code Acute Code for [facility] Fwd Diagnoses Acute psychosis F23 Bipolar disorder, current episode mixed, severe, without psychotic features F3 1.63 Nicotine dependence due to vaping tobacco product F17.290 Marijuana use, episodic F12.90 Generalized anxiety disorder F41.1 Post-traumatic stress disorder, chronic F43.12
[2022-12-09] MEDS: lithium carbonate 300 mg Capsule PO (17:10)
--- NOTE | 2022-12-09 18:28 | PC.NURSE ---
pt continues to cry multiple times a day when she feels she is not getting her request as soon as possible. pt crying after phone calls, during phone calls, goes to her room kneels on floor and crying and screaming.
[2022-12-09] MEDS: loperamide 2 mg Capsule PO (18:37)
[2022-12-09] MEDS: nicotine 4 mg lozenge MUCOUS MEM (19:50)
[2022-12-09] MEDS: CLONazepam 0.5 mg Tablet PO (20:35)
[2022-12-09] MEDS: quetiapine XR (24HR) 50 mg Tablet 200 MG PO (20:36)
[2022-12-09 20:45] VITALS: BP 109/71; PULSE 118; RESP 20; TEMP 36.7; O2SAT 98
[2022-12-09] MEDS: trazodone 50 mg Tablet PO (21:38)
[2022-12-10 06:00] VITALS: RESP 16
[2022-12-10] MEDS: nicotine 21 mg Patch 1 PATCH TRANSDERMA (07:59)
[2022-12-10] MEDS: paliperidone ER 6 mg Tablet PO (08:00)
[2022-12-10] MEDS: OLANZapine 5 mg ODT PO (08:00)
[2022-12-10] MEDS: lithium carbonate 300 mg Capsule PO ×3 (08:00→20:08)
--- NOTE | 2022-12-10 12:53 | W.PM.NPUPNS ---
Subjective NPU Subjective: The patient is a 27-year-old white female admitted with psychosis and disorganized behavior. The patient had slept without difficulty despite a reduction in the Klonopin. The patient had reported that her lithium was helping for her thoughts as she had reported that they were continuing to race. She appeared less preoccupied by her medical questions regarding odd somatic issues. She had not been engaging in any bizarre behavior on the unit. She had continued to report having significant amounts of worry but reported that she felt better about getting help from her family in [place] when she was stable. She had reported no initial side effects from lithium and stated that she would like to continue this medication along with her other medications as prescribed. Previous records that indicated the patient had been stabilized on 900 mg a day of lithium and this would likely be a target dose for her. Mental Status Exam MSE Comments: This is an obese white female in hospital scrubs with limited grooming and fair eye contact who was friendly and cooperative on interview today. No abnormal movements except for mild psychomotor activation with no noted tremor appreciated. She was cooperative with exam in mild distress. Speech was increased in rate with less push than yesterday and normal in volume. Mood described as okay. Her affect was slightly restricted. Thought process appeared more linear with less tangentiality noted. Thought content: Patient denied suicidal or homicidal ideation with no overt bizarre somatic delusions endorsed. Attention and concentration appeared poor. She is alert and oriented times person and place. Insight is limited. Her judgment appeared limited. Her impulse control appeared to be improving. Vitals/I&O/Wt Last Vital Signs Temp 98.0 F 12/09/22 20:45 Pulse 118 H 12/09/22 20:45 Resp 16 12/10/22 06:00 BP 109/71 12/09/22 20:45 Pulse Ox 98 12/09/22 20:45 O2 Del Method Room Air 12/09/22 20:45 Data NPU 11/22/22 21:39 11/22/22 21:39 A&P Assessment and plan (1) Acute psychosis: (2) Bipolar disorder, current episode mixed, severe, without psychotic features: (3) Nicotine dependence due to vaping tobacco product: (4) Marijuana use, episodic: (5) Generalized anxiety disorder: (6) Post-traumatic stress disorder, chronic: Plan This is a 27-year-old female who has a long history of psychosis with a previous hospitalization on the neuropsychiatric unit for psychotic illness who returns on a 96-hour hold with an acute psychotic episode. Plan: 1.? Continue current medications. Restarted Invega 6 mg p.o. daily and consider restarting previous medications that were assisting with her outpatient functionality after last hospitalization. Invega Sustenna 234 mg IM to the deltoid for loading dose started 11/28/2022. Given second loading dose of Invega Sustenna 156 mg IM to the deltoid 12/06/2022. Next injection Invega Sustenna 156 mg IM will be due 01/01/2023. Increase Seroquel xr 200mg tonight, continue klonopin .5mg at night. Increase Ixl 300mg tid. 2.? Continue every 15 minute checks for safety. 3.? Encourage individual, group and milieu therapies. 4.? Encourage sober living treatment after discharge at the highest level of care to which she is willing to commit. 5. Submitted 21-day hold paperwork to the courts. Patient placed on a 21-day hold, 12/01/2022 Involuntary Hold Information 96 Hour Hold: 96 Hour Involuntary Admission: Yes 96 Hour Hold Ending Date: 11/27/22 96 Hour Hold Ending Time: 00:01 Attestations NPU Medical Necessity Statement*: Inpatient hospitalization is medically necessary and the clinically appropriate intervention at this time. We will initiate medications and make changes as indicated. Likely length of stay is 5-10 days. Coding Level of Care Code Acute Code for [facility] Fwd Diagnoses Acute psychosis F23 Bipolar disorder, current episode mixed, severe, without psychotic features F31.63 Nicotine dependence due to vaping tobacco product F17.290 Marijuana use, episodic F12.90 Generalized anxiety disorder F41.1 Post-traumatic stress disorder, chronic F43.12
[2022-12-10] MEDS: nicotine 4 mg lozenge MUCOUS MEM ×2 (13:05→19:24)
[2022-12-10 13:31] VITALS: BP 138/73; PULSE 110; RESP 18; TEMP 36.7; O2SAT 99
[2022-12-10] MEDS: hyDROXYzine 25 mg Capsule 50 MG PO ×2 (14:02→19:28)
[2022-12-10 20:05] VITALS: BP 139/87; PULSE 120; RESP 20; TEMP 36.9; O2SAT 94
[2022-12-10] MEDS: CLONazepam 0.5 mg Tablet PO (20:08)
[2022-12-10] MEDS: quetiapine XR (24HR) 50 mg Tablet 200 MG PO (20:09)
[2022-12-10] MEDS: acetaminophen 325 mg Tablet 650 MG PO (20:12)
[2022-12-10] MEDS: trazodone 50 mg Tablet PO (21:16)
[2022-12-11] MEDS: hyDROXYzine 25 mg Capsule 50 MG PO ×2 (02:43→18:31)
[2022-12-11] MEDS: acetaminophen 325 mg Tablet 650 MG PO ×2 (03:52→11:38)
[2022-12-11] MEDS: nicotine 4 mg lozenge MUCOUS MEM (03:54)
[2022-12-11] MEDS: lithium carbonate 300 mg Capsule PO ×3 (08:40→20:17)
[2022-12-11] MEDS: paliperidone ER 6 mg Tablet PO (08:40)
[2022-12-11] MEDS: nicotine 21 mg Patch 1 PATCH TRANSDERMA (10:07)
[2022-12-11 14:00] VITALS: BP 130/84; PULSE 123; RESP 18; TEMP 36.8; O2SAT 98
--- NOTE | 2022-12-11 16:03 | W.PM.NPUPNS ---
Subjective NPU Subjective: The patient is a 27-year-old white female admitted with psychosis and disorganized behavior with a past history of bipolar disorder. The patient had continued to insist upon being started on various medications to help her with her depression although she had denied any active depressive symptoms currently. She stated that she had felt better on lithium. She had slept better despite the reduction in Klonopin to 0.5 mg at night. She had reported that her thoughts were slowing down. She had been less somatically preoccupied on the unit. She had reported that she felt better about returning to [place]. She was able to attend groups. Mental Status Exam MSE Comments: This is an obese white female in hospital scrubs with blue hair with improved grooming and fair eye contact who was friendly and cooperative on interview today. No abnormal movements except for mild psychomotor activation with no noted tremor appreciated. She was cooperative with exam in mild distress. Speech continued to have some increased in push and productivity and normal in volume. Mood described as all right. Her affect was slightly restricted. Thought process appeared tangential still. Thought content: Patient denied suicidal or homicidal ideation with continued somatic complaints but less bizarre delusions noted. Attention and concentration appeared poor. She is alert and oriented times person and place. Insight is limited. Her judgment appeared limited. Her impulse control appeared to be improving. Vitals/I&O/Wt Last Vital Signs Temp 98.3 F 12/11/22 14:00 Pulse 123 H 12/11/22 14:00 Resp 18 12/11/22 14:00 BP 130/84 12/11/22 14:00 Pulse Ox 98 12/11/22 14:00 O2 Del Method Room Air 12/10/22 20:05 Data NPU 11/22/22 21:39 11/22/22 21:39 A&P Assessment and plan (1) Acute psychosis: (2) Bipolar disorder, current episode mixed, severe, without psychotic features: (3) Nicotine dependence due to vaping tobacco product: (4) Marijuana use, episodic: (5) Generalized anxiety disorder: (6) Post-traumatic stress disorder, chronic: Plan This is a 27-year-old female who has a long history of psychosis with a previous hospitalization on the neuropsychiatric unit for psychotic illness who returns on a 96-hour hold with an acute psychotic episode. Plan: 1.? Continue current medications. Restarted Invega 6 mg p.o. daily and consider restarting previous medications that were assisting with her outpatient functionality after last hospitalization. Invega Sustenna 234 mg IM to the deltoid for loading dose started 11/28/2022. Given second loading dose of Invega Sustenna 156 mg IM to the deltoid 12/06/2022. Next injection Invega Sustenna 156 mg IM will be due 01/01/2023. Continue Seroquel xr 300mg tonight, continue klonopin .5mg at night. Continue [place] 300mg tid. 2.? Continue every 15 minute checks for safety. 3.? Encourage individual, group and milieu therapies. 4.? Encourage sober living treatment after discharge at the highest level of care to which she is willing to commit. 5. Submitted 21-day hold paperwork to the courts. Patient placed on a 21-day hold, 12/01/2022 Involuntary Hold Information 96 Hour Hold: 96 Hour Involuntary Admission: Yes 96 Hour Hold Ending Date: 11/27/22 96 Hour Hold Ending Time: 00:01 Attestations NPU Medical Necessity Statement*: Inpatient hospitalization is medically necessary and the clinically appropriate intervention at this time. We will initiate medications and make changes as indicated. Likely length of stay is 5-10 days. Coding Level of Care Code Acute Code for [facility] Fwd Diagnoses Acute psychosis F23 Bipolar disorder, current episode mixed, severe, without psychotic features F31.63 Nicotine dependence due to vaping tobacco product F17.290 Marijuana use, episodic F12.90 Generalized anxiety disorder F41.1 Post-traumatic stress disorder, chronic F43.12
[2022-12-11] MEDS: CLONazepam 0.5 mg Tablet PO (20:17)
[2022-12-11] MEDS: trazodone 50 mg Tablet PO ×2 (20:17→21:48)
[2022-12-11] MEDS: quetiapine XR (24HR) 300 mg Tablet PO (20:17)
[2022-12-11 20:48] VITALS: BP 134/88; PULSE 114; RESP 16; TEMP 36.8; O2SAT 96
[2022-12-12 06:00] VITALS: BP 108/76; PULSE 99; RESP 17; TEMP 36.6; O2SAT 96
[2022-12-12] MEDS: nicotine 21 mg Patch 1 PATCH TRANSDERMA (08:51)
[2022-12-12] MEDS: paliperidone ER 6 mg Tablet PO (08:52)
[2022-12-12] MEDS: lithium carbonate 300 mg Capsule PO ×3 (08:52→19:59)
[2022-12-12] MEDS: acetaminophen 325 mg Tablet 650 MG PO (08:54)
[2022-12-12 14:00] VITALS: BP 123/82; PULSE 116; RESP 20; TEMP 36.8; O2SAT 98
--- NOTE | 2022-12-12 14:08 | W.PM.NPUPNS ---
Subjective NPU Subjective: The patient is a 27-year-old white female admitted with psychosis and disorganized behavior with a past history of bipolar disorder. Patient had reported feeling calmer. She had stated that she had had some problems with sleep. She had reported that her thoughts were not moving as fast. She had appeared less preoccupied by her thoughts with less somatic complaints noted. She had stated that she was concentrating better. She did report some depression. She had been able to attend groups. She had been attending to her self-care better without any prompting from staff. She had not endorsed excessive fatigue with the slow titration of Seroquel upwards over the past week. Mental Status Exam MSE Comments: This is an obese white female in hospital scrubs with blue hair with improved grooming and fair eye contact who was friendly and cooperative on interview today. No abnormal movements with no psychomotor slowing noted today. There was no noted tremor appreciated. She was cooperative with exam in mild distress. Speech was normal in regards to rate and productivity and normal in volume. Mood described as okay. Her affect was slightly restricted. Thought process appeared more linear today. Thought content: Patient denied suicidal or homicidal ideation with less somatizations noted and no overt delusions appreciated. There was mild presence of some overvalued ideas but evidence of less preoccupation with these thoughts. Attention and concentration appeared poor. She is alert and oriented times person and place. Insight is limited. Her judgment appeared limited. Her impulse control appeared to be improving. Vitals/I&O/Wt Last Vital Signs Temp 97.9 F 12/12/22 06:00 Pulse 99 12/12/22 06:00 Resp 17 12/12/22 06:00 BP 108/76 12/12/22 06:00 Pulse Ox 96 12/12/22 06:00 O2 Del Method Room Air 12/12/22 06:00 Data NPU 11/22/22 21:39 11/22/22 21:39 A&P Assessment and plan (1) Acute psychosis: (2) Bipolar disorder, current episode mixed, severe, without psychotic features: (3) Nicotine dependence due to vaping tobacco product: (4) Marijuana use, episodic: (5) Generalized anxiety disorder: (6) Post-traumatic stress disorder, chronic: Plan This is a 27-year-old female who has a long history of psychosis with a previous hospitalization on the neuropsychiatric unit for psychotic illness who returns on a 96-hour hold with an acute psychotic episode. Plan: 1.? Continue current medications. Reduce Invega 3 mg p.o. daily and consider restarting previous medications that were assisting with her outpatient functionality after last hospitalization. Invega Sustenna 234 mg IM to the deltoid for loading dose started 11/28/2022. Given second loading dose of Invega Sustenna 156 mg IM to the deltoid 12/06/2022. Next injection Invega Sustenna 156 mg IM will be due 01/01/2023. Continue Seroquel xr 300mg tonight, continue klonopin .5mg at night. Continue [place] 300mg tid. 2.? Continue every 15 minute checks for safety. 3.? Encourage individual, group and milieu therapies. 4.? Encourage sober living treatment after discharge at the highest level of care to which she is willing to commit. 5. Submitted 21-day hold paperwork to the courts. Patient placed on a 21-day hold, 12/01/2022 Involuntary Hold Information 96 Hour Hold: 96 Hour Involuntary Admission: Yes 96 Hour Hold Ending Date: 11/27/22 96 Hour Hold Ending Time: 00:01 Attestations NPU Medical Necessity Statement*: Inpatient hospitalization is medically necessary and the clinically appropriate intervention at this time. We will initiate medications and make changes as indicated. Likely length of stay is 5-10 days. Coding Level of Care Code Acute Code for [facility] Fwd Diagnoses Acute psychosis F23 Bipolar disorder, current episode mixed, severe, without psychotic features F31.63 Nicotine dependence due to vaping tobacco product F17.290 Marijuana use, episodic F12.90 Generalized anxiety disorder F41.1 Post-traumatic stress disorder, chronic F43.12
[2022-12-12] MEDS: hyDROXYzine 25 mg Capsule 50 MG PO (15:04)
[2022-12-12] MEDS: quetiapine XR (24HR) 300 mg Tablet PO (19:59)
[2022-12-12] MEDS: CLONazepam 0.5 mg Tablet PO (19:59)
[2022-12-12] MEDS: OLANZapine 5 mg ODT PO (19:59)
[2022-12-12 21:30] VITALS: BP 139/94; PULSE 120; RESP 18; TEMP 36.7; O2SAT 97
[2022-12-12] MEDS: trazodone 50 mg Tablet PO (21:51)
[2022-12-13 06:00] VITALS: RESP 16
[2022-12-13] MEDS: paliperidone ER 3 mg Tablet PO (08:40)
[2022-12-13] MEDS: nicotine 21 mg Patch 1 PATCH TRANSDERMA (08:40)
[2022-12-13] MEDS: lithium carbonate 300 mg Capsule PO ×3 (08:40→20:17)
[2022-12-13] MEDS: hyDROXYzine 25 mg Capsule 50 MG PO ×2 (08:52→15:58)
--- NOTE | 2022-12-13 10:06 | PC.NURSE ---
PT CURRENTLY DENIES SI/HI/AH/VH. PT IS CURRENTLY IRRITABLE WITH STAFF. PT IS CURRENTLY REQUESTING STAFF TO CALL HER CORTES. STAFF EDUCATED HER THAT WE WOULD DO THAT AND THAT IT WOULD BE PASSED ON. PT REQUESTED TO ERYN OUT THE NAME ON HER NAME BAND. PT WAS EDUCATED THAT WE ARE UNABLE TO DO THAT FOR IDENTIFICATION PURPOSES. THIS IRRITATED THE PT ONCE MORE. PT CURRENT NEEDS ARE MET AT THIS TIME.
[2022-12-13] MEDS: OLANZapine 5 mg ODT PO ×2 (10:41→17:35)
[2022-12-13 12:41] VITALS: BP 129/80; PULSE 125; RESP 19; TEMP 37.1; O2SAT 97
--- NOTE | 2022-12-13 13:06 | P.NPUPN_ITS ---
Subjective NPU Subjective: The patient is a 27-year-old white female admitted with psychosis and disorganized behavior with a past history of bipolar disorder. The patient had continued to appear somewhat unhinged on the unit. She had appeared agitated and somewhat demanding with staff. She had continued to express worries about various things stating that she could not feel the outer part of her thighs. She had also perseverated about not having ever had an eye exam in the past. She had reported that she would be leaving for [place] on a plane when she was discharged from here. She had been redirectable and was able to engage in appropriate self-care. She had endorsed having greater periods of time in her life being depressed versus kaiden. She had reported that her depression was still there but her thoughts were slowing down. Mental Status Exam 2 MSE Comments: This is an obese white female in hospital scrubs with blue hair with improved grooming and fair eye contact who was friendly and cooperative on interview today. There was continued evidence of mild psychomotor slowing. There was no noted tremor appreciated. She was cooperative with exam in moderate distress. Speech showed increased productivity despite normal rate and volume. She would continue to speak at a steady rate for extended period of time often repeating the same topic. Mood described as okay. Her affect was flat. Thought process appeared circumstantial. Thought content: Patient denied suicidal or homicidal ideation with continued presence of somatic delusions. There was evidence of overvalued ideas. She appeared preoccupied by her thoughts quite often. Attention and concentration appeared poor. She is alert and oriented times person and place. Insight is limited. Her judgment appeared limited. Her impulse control appeared to be improving. Vitals/I&O/Wt Last Vital Signs Temp 98.7 F 12/13/22 12:41 Pulse 125 H 12/13/22 12:41 Resp 19 H 12/13/22 12:41 BP 129/80 12/13/22 12:41 Pulse Ox 97 12/13/22 12:41 O2 Del Method Room Air 12/13/22 12:41 12/12/22 12/13/22 12/13/22 22:59 06:59 14:59 Intake Total 0 / 0 Balance 0 / 0 Weight last 48 hrs Weight 87.997 kg Data NPU 11/22/22 21:39 11/22/22 21:39 A&P Assessment and plan (1) Acute psychosis: (2) Bipolar disorder, current episode mixed, severe, without psychotic features: (3) Nicotine dependence due to vaping tobacco product: (4) Marijuana use, episodic: (5) Generalized anxiety disorder: (6) Post-traumatic stress disorder, chronic: Plan This is a 27-year-old female who has a long history of psychosis with a previous hospitalization on the neuropsychiatric unit for psychotic illness who returns on a 96-hour hold with an acute psychotic episode. Plan: 1.? Continue current medications. Continue Invega 3 mg p.o. daily and consider restarting previous medications that were assisting with her outpatient functionality after last hospitalization. Invega Sustenna 234 mg IM to the deltoid for loading dose started 11/28/2022. Given second loading dose of Invega Sustenna 156 mg IM to the deltoid 12/06/2022. Next injection Invega Sustenna 156 mg IM will be due 01/01/2023. Increase Seroquel xr 350mg tonight, continue klo nopin .5mg at night. Continue [place] 300mg tid. 2.? Continue every 15 minute checks for safety. 3.? Encourage individual, group and milieu therapies. 4.? Encourage sober living treatment after discharge at the highest level of care to which she is willing to commit. 5. Submitted 21-day hold paperwork to the courts. Patient placed on a 21-day hold, 12/01/2022 Involuntary Hold Information 96 Hour Hold: 96 Hour Involuntary Admission: Yes 96 Hour Hold Ending Date: 11/27/22 96 Hour Hold Ending Time: 00:01 Attestations NPU Medical Necessity Statement*: Inpatient hospitalization is medically necessary and the clinically appropriate intervention at this time. We will initiate medications and make changes as indicated. Likely length of stay is 5-10 days. Coding Level of Care Code Acute Code for [facility] Fw Diagnoses Acute psychosis F23 Bipolar disorder, current episode mixed, severe, without psychotic features F31.63 Nicotine dependence due to vaping tobacco product F17.290 Marijuana use, episodic F12.90 Generalized anxiety disorder F41.1 Post-traumatic stress disorder, chronic F43.12
[2022-12-13] MEDS: docusate sodium 100 mg Capsule PO (13:59)
[2022-12-13 20:03] VITALS: RESP 18
[2022-12-13] MEDS: quetiapine XR (24HR) 300 mg Tablet PO (20:16)
[2022-12-13] MEDS: quetiapine XR (24HR) 50 mg Tablet PO (20:16)
[2022-12-13] MEDS: CLONazepam 0.5 mg Tablet PO (20:35)
[2022-12-13] MEDS: trazodone 50 mg Tablet PO (21:40)
[2022-12-14 06:00] VITALS: BP 119/86; PULSE 98; RESP 16; O2SAT 98
[2022-12-14] MEDS: lithium carbonate 300 mg Capsule PO ×3 (08:20→20:12)
[2022-12-14] MEDS: nicotine 21 mg Patch 1 PATCH TRANSDERMA (08:20)
[2022-12-14] MEDS: paliperidone ER 3 mg Tablet PO (08:20)
[2022-12-14] MEDS: hyDROXYzine 25 mg Capsule 50 MG PO ×2 (08:36→14:31)
[2022-12-14] MEDS: acetaminophen 325 mg Tablet 650 MG PO (08:38)
[2022-12-14] MEDS: OLANZapine 5 mg ODT PO ×2 (09:53→20:12)
[2022-12-14 13:18] VITALS: BP 128/85; PULSE 113; RESP 17; TEMP 36.6; O2SAT 97
--- NOTE | 2022-12-14 13:52 | P.NPUPN_ITS ---
Subjective NPU Subjective: The patient is a 27-year-old white female admitted with psychosis and disorganized behavior with a past history of bipolar disorder. Patient continued to worry excessively about various medical problems. She had perseverated about needing to have an eye exam. She had reported that her thou ghts were moving more slowly. She had continued to endorse problems here on the unit despite there not being any clear evidence of any recent behavioral problems. The patient was redirectable. She had not required any as needed medications last night. She had continue to endorse some depressed mood. She had described having difficulties with controlling her worries. Mental Status Exam MSE Comments: This is an obese white female in hospital scrubs with blue hair with improved grooming and fair eye contact who was friendly and cooperative on interview today. There was continued evidence of mild psychomotor slowing. There was no noted tremor appreciated. She was cooperative with exam in mild to moderate distress. Speech showed increased productivity despite normal rate and volume. She would continue to speak at a steady rate for extended period of time often repeating the same topic. Mood described as worried. Her affect was mood congruent and anxious. Thought process appeared circumstantial. Thought content: Patient denied suicidal or homicidal ideation with continued presence of somatic delusions. There was evidence of overvalued ideas. She appeared preoccupied by her thoughts throughout the interview.. Attention and concentration appeared poor. She is alert and oriented times person and place. Insight is limited. Her judgment appeared limited. Her impulse control appeared to be improving. Vitals/I&O/Wt Last Vital Signs Temp 97.9 F 12/14/22 13:18 Pulse 113 H 12/14/22 13:18 Resp 17 12/14/22 13:18 BP 128/85 12/14/22 13:18 Pulse Ox 97 12/14/22 13:18 O2 Del Method Room Air 12/14/22 06:00 Weight last 48 hrs Weight 87.997 kg Data NPU 11/22/22 21:39 11/22/22 21:39 A&P Assessment and plan (1) Acute psychosis: (2) Bipolar disorder, current episode mixed, severe, without psychotic features: (3) Nicotine dependence due to vaping tobacco product: (4) Marijuana use, episodic: (5) Generalized anxiety disorder: (6) Post-traumatic stress disorder, chronic: Plan This is a 27-year-old female who has a long history of psychosis with a previous hospitalization on the neuropsychiatric unit for psychotic illness who returns on a 96-hour hold with an acute psychotic episode. Plan: 1.? Continue current medications. Continue Invega 3 mg p.o. daily and consider restarting previous medications that were assisting with her outpatient functionality after last hospitalization. Invega Sustenna 234 mg IM to the deltoid for loading dose started 11/28/2022. Given second loading dose of Invega Sustenna 156 mg IM to the deltoid 12/06/2022. Next injection Invega Sustenna 156 mg IM will be due 01/01/2023. Increase Seroquel xr 400mg tonight, continue klonopin .5mg at night. Continue [place] 300mg tid. 2.? Continue every 15 minute checks for safety. 3.? Encourage individual, group and milieu therapies. 4.? Encourage sober living treatment after discharge at the highest level of care to which she is willing to commit. 5. Submitted 21-day hold paperwork to the courts. Patient placed on a 21-day hold, 12/01/2022 Involuntary Hold Information 96 Hour Hold: 96 Hour Involuntary Admission: Yes 96 Hour Hold Ending Date: 11/27/22 96 Hour Hold Ending Time: 00:01 Attestations NPU Medical Necessity Statement*: Inpatient hospitalization is medically necessary and the clinically appropriate intervention at this time. We will initiate medications and make changes as indicated. The patient's likely length of stay is 3-5 days. Coding Level of Care Code Acute Code for [facility] Fwd Diagnoses Acute psychosis F23 Bipolar disorder, current episode mixed, severe, without psychotic features F31.63 Nicotine dependence due to vaping tobacco product F17.290 Marijuana use, episodic F12.90 Generalized anxiety disorder F41.1 Post-traumatic stress disorder, chronic F43.12
[2022-12-14] MEDS: quetiapine XR (24HR) 50 mg Tablet 100 MG PO (20:12)
[2022-12-14] MEDS: quetiapine XR (24HR) 300 mg Tablet PO (20:12)
[2022-12-14] MEDS: CLONazepam 0.5 mg Tablet PO (20:12)
[2022-12-14 21:04] VITALS: BP 130/80; PULSE 113; RESP 19; O2SAT 97
[2022-12-14] MEDS: trazodone 50 mg Tablet PO (21:19)
[2022-12-15 05:54] LABS: Add Urine Microscopic? NO; Charge for UA Resulting for Rev
[2022-12-15 06:00] VITALS: BP 137/94; PULSE 102; RESP 18; O2SAT 98
[2022-12-15 06:06] LABS: Urine Appearance Clear (CLEAR); Urine Color Yellow (Yellow); pH Urine 7 (5-7)
[2022-12-15 06:07] LABS: Bilirubin Urine Neg (Negative); Blood Urine Neg (Negative); Glucose Urine UA Norm (Normal); Ketones Urine Negative (Negative); Leukocyte Esterase Urine Negative (Negative); Nitrate Urine Negative (Negative); Protein Urine Neg (Negative); Specific Gravity, Urine 1.005 (1.005-1.030); Urobilinogen Urine Norm (Negative)
[2022-12-15] MEDS: docusate sodium 100 mg Capsule PO (08:06)
[2022-12-15] MEDS: paliperidone ER 3 mg Tablet PO (08:06)
[2022-12-15] MEDS: hyDROXYzine 25 mg Capsule 50 MG PO ×2 (08:07→15:26)
--- NOTE | 2022-12-15 08:35 | PC.NURSE ---
During morning assessment, patient stated that she was having anxiety. Patient said she has fleeting suicidal thoughts, but denies any plan to commit suicide. Patient denied AVH, HI, and depression.
[2022-12-15] MEDS: OLANZapine 5 mg ODT PO ×2 (08:44→17:12)
[2022-12-15] MEDS: nicotine 21 mg Patch 1 PATCH TRANSDERMA (08:44)
[2022-12-15] MEDS: polyethylene glycol 3350 Pkt 17 gm PO (08:44)
[2022-12-15 09:07] LABS: Anion Gap 14.4 (5-19); Blood Urea Nitrogen 13 mg/dL (6-20); Calcium 9.4 mg/dL (8.5-10.5); Carbon Dioxide 22 mmol/L (22-29); Chloride 105 mmol/L (98-107); Glomerular Filtration Rate 150.3 mL/min (90-130); Glucose 122 mg/dL (65-115); Osmolality Calculated 285 mOsm/kg (285-295); Potassium 4.4 mmol/L (3.5-5.1); Sodium 137 mmol/L (136-145)
[2022-12-15 09:10] LABS: Lithium 0.3 mmol/L (0.6-1.2)
[2022-12-15] MEDS: acetaminophen 325 mg Tablet 650 MG PO ×3 (10:53→20:18)
[2022-12-15 14:00] VITALS: BP 131/89; PULSE 101; RESP 16; TEMP 36.9; O2SAT 97
[2022-12-15] MEDS: lithium carbonate 300 mg Capsule PO (14:36)
--- NOTE | 2022-12-15 15:04 | W.PM.NPUPNS ---
Subjective NPU Subjective: The patient is a 27-year-old white female admitted with psychosis and disorganized behavior with a past history of bipolar disorder. Patient's lithium level was 0.3 and suboptimal. She reported that she did not appear to have any side effects from her lithium this time with no problems noted with bedwetting or problems with urinary urgency. Patient had continue to perseverate about multiple medical issues. She had stated that she felt less anxious about her disposition as she would go to [place] to be with her child. She had reported that she still felt confused. Patient had been able to attend groups and reported that her concentration had been better with the increase in Seroquel. She had denied having less intense racing thoughts. Mental Status Exam MSE Comments: This is an obese white female in hospital scrubs with blue hair with improved grooming and fair eye contact who was friendly and cooperative on interview today. There was no psychomotor slowing appreciated. There was no noted tremor appreciated. She was cooperative with exam in mild to moderate distress. Speech showed increased spontaneity with normal volume and rhythm. Mood described as okay. Her affect remained anxious.. Thought process appeared circumstantial. Thought content: Patient denied suicidal or homicidal ideation with no overt somatic delusions noted. There was evidence of overvalued ideas. Attention and concentration appeared poor. She is alert and oriented times person and place. Insight is limited. Her judgment appeared limited. Her impulse control appeared to be improving. Vitals/I&O/Wt Last Vital Signs Temp 98.4 F 12/15/22 14:00 Pulse 101 H 12/15/22 14:00 Resp 16 12/15/22 14:00 BP 131/89 12/15/22 14:00 Pulse Ox 97 12/15/22 14:00 O2 Del Method Room Air 12/15/22 14:00 Data NPU 11/22/22 21:39 12/15/22 08:36 A&P Assessment and plan (1) Acute psychosis: (2) Bipolar disorder, current episode mixed, severe, without psychotic features: (3) Nicotine dependence due to vaping tobacco product: (4) Marijuana use, episodic: (5) Generalized anxiety disorder: (6) Post-traumatic stress disorder, chronic: Plan This is a 27-year-old female who has a long history of psychosis with a previous hospitalization on the neuropsychiatric unit for psychotic illness who returns on a 96-hour hold with an acute psychotic episode. Plan: 1.? Continue current medications. Continue Invega 3 mg p.o. daily and consider restarting previous medications that were assisting with her outpatient functionality after last hospitalization. Invega Sustenna 234 mg IM to the deltoid for loading dose started 11/28/2022. Given second loading dose of Invega Sustenna 156 mg IM to the deltoid 12/06/2022. Next injection Invega Sustenna 156 mg IM will be due 01/01/2023. Continue Seroquel xr 400mg tonight, continue klonopin .5mg at night. Increase [place] to 600mg bid. 2.? Continue every 15 minute checks for safety. 3.? Encourage individual, group and milieu therapies. 4.? Encourage sober living treatment after discharge at the highest level of care to which she is willing to commit. 5. Submitted 21-day hold paperwork to the courts. Patient placed on a 21-day hold, 12/01/2022 Involuntary Hold Information 96 Hour Hold: 96 Hour Involuntary Admission: Yes 96 Hour Hold Ending Date: 11/27/22 96 Hour Hold Ending Time: 00:01 Attestations NPU Medical Necessity Statement*: Inpatient hospitalization is medically necessary and the clinically appropriate intervention at this time. We will initiate medications and make changes as indicated. The patient's likely length of stay is 3-5 days. Coding Level of Care Code Acute Code for [facility] Fwd Diagnoses Acute psychosis F23 Bipolar disorder, current episode mixed, severe, without psychotic features F31.63 Nicotine dependence due to vaping tobacco product F17.290 Marijuana use, episodic F12.90 Generalized anxiety disorder F41.1 Post-traumatic stress disorder, chronic F43.12
[2022-12-15] MEDS: fluticasone nasal spray 16gm Btl 2 SPRAY NASAL (17:05)
[2022-12-15] MEDS: lithium carbonate 300 mg Capsule 600 MG PO (17:05)
[2022-12-15] MEDS: quetiapine XR (24HR) 50 mg Tablet 100 MG PO (19:50)
[2022-12-15] MEDS: CLONazepam 0.5 mg Tablet PO (19:50)
[2022-12-15] MEDS: quetiapine XR (24HR) 300 mg Tablet PO (19:50)
[2022-12-15 20:00] VITALS: BP 132/82; PULSE 118; RESP 18; TEMP 36.8; O2SAT 98
[2022-12-15] MEDS: trazodone 50 mg Tablet PO (22:11)
[2022-12-16 06:00] VITALS: BP 131/86; PULSE 100; RESP 16; TEMP 36.4; O2SAT 97
[2022-12-16] MEDS: hyDROXYzine 25 mg Capsule 50 MG PO ×3 (06:14→17:05)
[2022-12-16] MEDS: nicotine 21 mg Patch 1 PATCH TRANSDERMA (09:14)
[2022-12-16] MEDS: lithium carbonate 300 mg Capsule 600 MG PO ×2 (09:14→17:05)
[2022-12-16] MEDS: polyethylene glycol 3350 Pkt 17 gm PO (09:14)
[2022-12-16] MEDS: paliperidone ER 3 mg Tablet PO (09:14)
[2022-12-16] MEDS: fluticasone nasal spray 16gm Btl 2 SPRAY NASAL ×2 (09:15→17:07)
[2022-12-16] MEDS: OLANZapine 5 mg ODT PO (11:32)
[2022-12-16 14:00] VITALS: BP 129/85; PULSE 109; RESP 17; TEMP 36.7; O2SAT 97
--- NOTE | 2022-12-16 15:32 | P.NPUPN_ITS ---
Subjective NPU Subjective: The patient is a 27-year-old white female admitted with psychosis and disorganized behavior with a past history of bipolar disorder. The patient had appeared more compliant on the milieu. She reported that she was feeling better. She had continued to report having plans to leave here and go to [place] upon discharge. She reported adequate sleep. She reported no suicidal thoughts. She had reported feeling that her thoughts were slower with the increase in lithium. Patient had stated that she would try to remain compliant to lithium and not attempt to cheek the medications. She had continued to report having night terrors. She had continued to be preoccupied by various somatic complaints. She had been more redirectable. Mental Status Exam MSE Comments: This is an obese white female in hospital scrubs with blue hair with improved grooming and fair eye contact who was friendly and cooperative on interview today. There was no psychomotor slowing appreciated. There was no noted tremor appreciated. She was cooperative with exam in mild to moderate distress. Speech showed increased spontaneity with normal volume and rhythm. Mood described as better. Her affect was less restricted. Thought process appeared circumstantial. Thought content: Patient denied suicidal or homicidal ideation with no overt somatic delusions noted. There was evidence of some overvalued ideas. Attention and concentration appeared poor. She is alert and oriented times person and place. Insight is limited. Her judgment appeared limited. Her impulse control appeared to be improving. Vitals/I&O/Wt Last Vital Signs Temp 97.6 F 12/16/22 06:00 Pulse 100 12/16/22 06:00 Resp 16 12/16/22 06:00 BP 131/86 12/16/22 06:00 Pulse Ox 97 12/16/22 06:00 O2 Del Method Room Air 12/15/22 14:00 Data NPU 11/22/22 21:39 12/15/22 08:36 A&P Assessment and plan (1) Acute psychosis: (2) Bipolar disorder, current episode mixed, severe, without psychotic features: (3) Nicotine dependence due to vaping tobacco product: (4) Marijuana use, episodic: (5) Generalized anxiety disorder: (6) Post-traumatic stress disorder, chronic: Plan This is a 27-year-old female who has a long history of psychosis with a previous hospitalization on the neuropsychiatric unit for psychotic illness who returns on a 96-hour hold with an acute psychotic episode. Plan: 1.? Continue current medications. Continue Invega 3 mg p.o. daily and consider restarting previous medications that were assisting with her outpatient fun ctionality after last hospitalization. Invega Sustenna 234 mg IM to the deltoid for loading dose started 11/28/2022. Given second loading dose of Invega Sustenna 156 mg IM to the deltoid 12/06/2022. Next injection Invega Sustenna 156 mg IM will be due 01/01/2023. Increase Seroquel xr 500mg tonight, Will hold klonopin at night. Continue [place] to 600mg bid. 2.? Continue every 15 minute checks for safety. 3.? Encourage individual, group and milieu therapies. 4.? Encourage sober living treatment after discharge at the highest level of care to which she is willing to commit. 5. Submitted 21-day hold paperwork to the courts. Patient placed on a 21-day hold, 12/01/2022 Involuntary Hold Information 96 Hour Hold: 96 Hour Involuntary Admission: Yes 96 Hour Hold Ending Date: 11/27/22 96 Hour Hold Ending Time: 00:01 Attestations NPU Medical Necessity Statement*: Inpatient hospitalization is medically necessary and the clinically appropriate intervention at this time. We will initiate medications and make changes as indicated. The patient's likely length of stay is 3-5 days. Coding Level of Care Code Acute Code for [facility] Fwd Diagnoses Acute psychosis F23 Bipolar disorder, current episode mixed, severe, without psychotic features F31.63 Nicotine dependence due to vaping tobacco product F17.290 Marijuana use, episodic F12.90 Generalized anxiety disorder F41.1 Post-traumatic stress disorder, chronic F43.12
[2022-12-16 20:40] VITALS: BP 124/85; PULSE 124; RESP 18; TEMP 36.7; O2SAT 97
[2022-12-16] MEDS: quetiapine XR (24HR) 300 mg Tablet PO (20:59)
[2022-12-16] MEDS: quetiapine XR (24HR) 50 mg Tablet 200 MG PO (20:59)
[2022-12-16] MEDS: acetaminophen 325 mg Tablet 650 MG PO (21:00)
[2022-12-16] MEDS: trazodone 50 mg Tablet PO (21:46)
[2022-12-17 06:00] VITALS: BP 129/80; PULSE 105; RESP 18; TEMP 36.4; O2SAT 98
[2022-12-17] MEDS: fluticasone nasal spray 16gm Btl 2 SPRAY NASAL ×2 (07:21→17:47)
[2022-12-17] MEDS: polyethylene glycol 3350 Pkt 17 gm PO (07:21)
[2022-12-17] MEDS: nicotine 21 mg Patch 1 PATCH TRANSDERMA (07:21)
[2022-12-17] MEDS: paliperidone ER 3 mg Tablet PO (07:22)
[2022-12-17] MEDS: loratadine 10 mg Tablet PO (07:22)
[2022-12-17] MEDS: docusate sodium 100 mg Capsule PO (07:22)
[2022-12-17] MEDS: lithium carbonate 300 mg Capsule 600 MG PO ×2 (07:22→17:48)
[2022-12-17] MEDS: OLANZapine 5 mg ODT PO ×2 (07:22→14:20)
[2022-12-17] MEDS: hyDROXYzine 25 mg Capsule 50 MG PO ×2 (11:21→20:02)
--- NOTE | 2022-12-17 11:24 | PC.NURSE ---
PRN Hydroxyzine: Hydroxyzine 50 mg PO given to pt for c/o anxiety. Pt cooperative during medication administration. Will continue to monitor.
--- NOTE | 2022-12-17 12:14 | W.PM.NPUPNS ---
Subjective NPU Subjective: Patient presented today reporting that she is feeling better. She certainly seemed better in comparison to how she was 11 days ago when she was last seen by this movie writer. We discussed the fact that her 21-day hold is ending next week and at this point a plan for guardianship or an extension are not fixed. She reportedly has some additional supports to assist her in getting to [place] where her family is now. We discussed getting clarity about what that support looks like as her making decisions about continuing treatment versus discharge. Mental Status Exam MSE Comments: This is an obese white female in hospital scrubs with blue hair with improved grooming and fair eye contact who was friendly and cooperative on interview today. There was no psychomotor slowing appreciated. There was no noted tremor appreciated. She was cooperative with exam in mild distress. Speech showed increased spontaneity with normal volume and rhythm. Mood described as better. Her affect was less restricted. Thought process appeared circumstantial. Thought content: Patient denied suicidal or homicidal ideation with no overt somatic delusions noted. There was evidence of some overvalued ideas. Attention and concentration appeared poor. She is alert and oriented times person and place. Insight is limited. Her judgment appeared limited. Her impulse control appeared to be improving. Vitals/I&O/Wt Last Vital Signs Temp 97.6 F 12/17/22 06:00 Pulse 105 H 12/17/22 06:00 Resp 18 12/17/22 06:00 BP 129/80 12/17/22 06:00 Pulse Ox 98 12/17/22 06:00 O2 Del Method Room Air 12/15/22 14:00 Data NPU 11/22/22 21:39 12/15/22 08:36 A&P Assessment and plan (1) Acute psychosis: (2) Bipolar disorder, current episode mixed, severe, without psychotic features: (3) Nicotine dependence due to vaping tobacco product: (4) Marijuana use, episodic: (5) Generalized anxiety disorder: (6) Post-traumatic stress disorder, chronic: Plan This is a 27-year-old female who has a long history of psychosis with a previous hospitalization on the neuropsychiatric unit for psychotic illness who returns on a 96-hour hold with an acute psychotic episode. Plan: 1.? Continue current medications. Continue Invega 3 mg p.o. daily and consider restarting previous medications that were assisting with her outpatient functionality after last hospitalization. Invega Sustenna 234 mg IM to the deltoid for loading dose started 11/28/2022. Given second loading dose of Invega Sustenna 156 mg IM to the deltoid 12/06/2022. Next injection Invega Sustenna 156 mg IM will be due 01/01/2023. Increase Seroquel xr 500mg tonight, Will hold klonopin at night. Continue [place] to 600mg bid. 2.? Continue every 15 minute checks for safety. 3.? Encourage individual, group and milieu therapies. 4.? Encourage sober living treatment after discharge at the highest level of care to which she is willing to commit. 5. Submitted 21-day hold paperwork to the courts. Patient placed on a 21-day hold, 12/01/2022 Involuntary Hold Information 96 Hour Hold: 96 Hour Involuntary Admission: Yes 96 Hour Hold Ending Date: 11/27/22 96 Hour Hold Ending Time: 00:01 Attestations NPU Medical Necessity Statement*: Inpatient hospitalization is medically necessary and the clinically appropriate intervention at this time. We will initiate medications and make changes as indicated. The patient's likely length of stay is 2-4 days. Coding Level of Care Code Acute Code for g Fwd Diagnoses Acute psychosis F23 Bipolar disorder, current episode mixed, severe, without psychotic features F31.63 Nicotine dependence due to vaping tobacco product F17.290 Marijuana use, episodic F12.90 Generalized anxiety disorder F41.1 Post-traumatic stress disorder, chronic F43.12
--- NOTE | 2022-12-17 12:20 | PC.NURSE ---
PRN Hydroxyzine follow up: Hydroxyzine 50 mg PO effective. Pt is calm and cooperative. Will continue to monitor.
[2022-12-17 14:00] VITALS: BP 121/83; PULSE 108; RESP 17; TEMP 36.7; O2SAT 99
--- NOTE | 2022-12-17 14:20 | PC.NURSE ---
PRN Zyprexa: Pt pacing from group room to nurse's station c/o anxiety and mild agitation. Pt is upset due to Klonipin being discontinued. Pt also expressed frustrations about the bathroom not having toilet paper. Zyprexa Zydis 5 mg ODT given to pt. Pt cooperative during medication administration. Will continue to monitor.
[2022-12-17] MEDS: quetiapine XR (24HR) 50 mg Tablet 200 MG PO (20:00)
[2022-12-17] MEDS: quetiapine XR (24HR) 300 mg Tablet PO (20:03)
[2022-12-17] MEDS: trazodone 50 mg Tablet PO (20:03)
[2022-12-17] MEDS: acetaminophen 325 mg Tablet 650 MG PO (20:03)
[2022-12-17 20:19] VITALS: BP 135/85; PULSE 118; RESP 18; TEMP 36.6; O2SAT 98
[2022-12-18 06:00] VITALS: BP 157/95; PULSE 105; RESP 18; O2SAT 98
[2022-12-18] MEDS: nicotine 4 mg lozenge MUCOUS MEM ×4 (06:13→20:47)
[2022-12-18] MEDS: hyDROXYzine 25 mg Capsule 50 MG PO ×2 (06:14→16:20)
[2022-12-18] MEDS: fluticasone nasal spray 16gm Btl 2 SPRAY NASAL ×2 (08:22→17:22)
[2022-12-18] MEDS: lithium carbonate 300 mg Capsule 600 MG PO ×2 (08:22→17:22)
[2022-12-18] MEDS: paliperidone ER 3 mg Tablet PO (08:22)
[2022-12-18] MEDS: OLANZapine 5 mg ODT PO ×2 (09:49→19:12)
--- NOTE | 2022-12-18 12:05 | P.NPUPN_ITS ---
Subjective NPU Subjective: Patient presented today continuing the theme of discharge and will be allowed her to and going to a local nursing home and saying goodbye to all of her friends from the area. We discussed the challenges with that plan with the goal of reuniting her with her family. We discussed her holding up next week and as not currently planning on extending the hold given family reports that she is fairly near baseline. We agreed we would work with the team and her family for the best and safest discharge plan. Mental Status Exam MSE Comments: This is an obese white female in hospital scrubs with blue hair with improved grooming and fair eye contact who was friendly and cooperative on interview today. There was no psychomotor slowing appreciated. There was no noted tremor appreciated. She was cooperative with exam in mild distress. Speech showed increased spontaneity with normal volume and rhythm. Mood described as better. Her affect was less restricted. Thought process appeared circumstantial. Thought content: Patient denied suicidal or homicidal ideation with no overt somatic delusions noted. There was evidence of some overvalued ideas. Attention and concentration appeared poor. She is alert and oriented times person and place. Insight is limited. Her judgment appeared limited. Her impulse control appeared to be improving. Vitals/I&O/Wt Last Vital Signs Temp 97.9 F 12/17/22 20:19 Pulse 105 H 12/18/22 06:00 Resp 18 12/18/22 06:00 BP 157/95 12/18/22 06:00 Pulse Ox 98 12/18/22 06:00 O2 Del Method Room Air 12/17/22 14:00 Data NPU 11/22/22 21:39 12/15/22 08:36 A&P Assessment and plan (1) Acute psychosis: (2) Bipolar disorder, current episode mixed, severe, without psychotic features: (3) Nicotine dependence due to vaping tobacco product: (4) Marijuana use, episodic: (5) Generalized anxiety disorder: (6) Post-traumatic stress disorder, chronic: Plan This is a 27-year-old female who has a long history of psychosis with a previous hospitalization on the neuropsychiatric unit for psychotic illness who returns on a 96-hour hold with an acute psychotic episode. Plan: 1.? Continue current medications. Continue Invega 3 mg p.o. daily and consider restarting previous medications that were assisting with her outpatient functionality after last hospitalization. Invega Sustenna 234 mg IM to the deltoid for loading dose started 11/28/2022. Given second loading dose of Invega Sustenna 156 mg IM to the deltoid 12/06/2022. Next injection Invega Sustenna 156 mg IM will be due 01/01/2023. Increase Seroquel xr 500mg tonight, Will hold klonopin at night. Continue [place] to 600mg bid. 2.? Continue every 15 minute checks for safety. 3.? Encourage individual, group and milieu therapies. 4.? Encourage sober living treatment after discharge at the highest level of care to which she is willing to commit. 5. Submitted 21-day hold paperwork to the courts. Patient placed on a 21-day hold, 12/01/2022 Involuntary Hold Information 96 Hour Hold: 96 Hour Involuntary Admission: Yes 96 Hour Hold Ending Date: 11/27/22 96 Hour Hold Ending Time: 00:01 Attestations NPU Medical Necessity Statement*: Inpatient hospitalization is medically necessary and the clinically appropriate intervention at this time. We will initiate medications and make changes as indicated. The patient's likely length of stay is 3-4 days. Coding Level of Care Code Acute Code for Chg Fwd Diagnoses Acute psychosis F23 Bipolar disorder, current episode mixed, severe, without psychotic features F31.63 Nicotine dependence due to vaping tobacco product F17.290 Marijuana use, episodic F12.90 Generalized anxiety disorder F41.1 Post-traumatic stress disorder, chronic F43.12
[2022-12-18 14:00] VITALS: BP 114/81; PULSE 84; RESP 18; TEMP 36.8; O2SAT 98
--- NOTE | 2022-12-18 14:35 | PC.NURSE ---
Patient asked for shower supplies and nursing staff promptly got them for her. Patient then placed her things in the bathroom then stormed out angrily saying, never mind. They're (referring to other patients) talking too loud out here, I can't even relax and take a shower. This nurse let her know that the other patients were at the other end of the hallway, but she said, whatever, I just want me time. Patient then refused a shower and became angry when nursing staff asked her to return her hygiene box until she was ready to take one. She then slammed her door and covered her head with a blanket and began sobbing loudly.
[2022-12-18 19:34] VITALS: BP 133/93; PULSE 109; RESP 18; TEMP 36.8; O2SAT 98
[2022-12-18] MEDS: quetiapine XR (24HR) 300 mg Tablet PO (20:47)
[2022-12-18] MEDS: quetiapine XR (24HR) 50 mg Tablet 200 MG PO (20:47)
[2022-12-18] MEDS: trazodone 50 mg Tablet PO (21:35)
[2022-12-19] MEDS: hyDROXYzine 25 mg Capsule 50 MG PO ×4 (03:00→19:02)
[2022-12-19] MEDS: trazodone 50 mg Tablet PO ×2 (03:02→21:41)
[2022-12-19 06:00] VITALS: BP 113/79; PULSE 103; RESP 18; TEMP 36.6; O2SAT 95
[2022-12-19] MEDS: lithium carbonate 300 mg Capsule 600 MG PO ×2 (08:34→18:19)
[2022-12-19] MEDS: paliperidone ER 3 mg Tablet PO (08:34)
[2022-12-19] MEDS: fluticasone nasal spray 16gm Btl 2 SPRAY NASAL ×2 (08:35→18:20)
[2022-12-19] MEDS: nicotine 4 mg lozenge MUCOUS MEM ×4 (09:15→19:02)
--- NOTE | 2022-12-19 10:09 | W.PM.NPUPNS ---
Subjective NPU Subjective: Patient presented today reporting that she is feeling better. She seemed to be less focused on this side adventure of going to say goodbye to people and more focused on having some anxiety about getting on a flight because she has some fear of flying having never flown before. Otherwise she reports that the Invega injection is being very helpful and she is seeming clearer in her thought. We discussed the likelihood of discharge by Wednesday. Mental Status Exam MSE Comments: This is an obese white female in hospital scrubs with blue hair with improved grooming and fair eye contact who was friendly and cooperative on interview today. There was no psychomotor slowing appreciated. There was no noted tremor appreciated. She was cooperative with exam in mild distress. Speech showed increased spontaneity with normal volume and rhythm. Mood described as better. Her affect was less restricted. Thought process appeared circumstantial. Thought content: Patient denied suicidal or homicidal ideation with no overt somatic delusions noted. There was evidence of some overvalued ideas. Attention and concentration appeared poor. She is alert and oriented times person and place. Insight is limited. Her judgment appeared limited. Her impulse control appeared to be improving. Vitals/I&O/Wt Last Vital Signs Temp 97.8 F 12/19/22 06:00 Pulse 103 H 12/19/22 06:00 Resp 18 12/19/22 06:00 BP 113/79 12/19/22 06:00 Pulse Ox 95 12/19/22 06:00 O2 Del Method Room Air 12/19/22 06:00 Data NPU 11/22/22 21:39 12/15/22 08:36 A&P Assessment and plan (1) Acute psychosis: (2) Bipolar disorder, current episode mixed, severe, without psychotic features: (3) Nicotine dependence due to vaping tobacco product: (4) Marijuana use, episodic: (5) Generalized anxiety disorder: (6) Post-traumatic stress disorder, chronic: Plan This is a 27-year-old female who has a long history of psychosis with a previous hospitalization on the neuropsychiatric unit for psychotic illness who returns on a 96-hour hold with an acute psychotic episode. Plan: 1.? Continue current medications. Continue Invega 3 mg p.o. daily and consider restarting previous medications that were assisting with her outpatient functionality after last hospitalization. Invega Sustenna 234 mg IM to the deltoid for loading dose started 11/28/2022. Given second loading dose of Invega Sustenna 156 mg IM to the deltoid 12/06/2022. Next injection Invega Sustenna 156 mg IM will be due 01/01/2023. Increase Seroquel xr 500mg tonight, Will hold klonopin at night. Continue [place] to 600mg bid. 2.? Continue every 15 minute checks for safety. 3.? Encourage individual, group and milieu therapies. 4.? Encourage sober living treatment after discharge at the highest level of care to which she is willing to commit. 5. Submitted 21-day hold paperwork to the courts. Patient placed on a 21-day hold, 12/01/2022 Involuntary Hold Information 96 Hour Hold: 96 Hour Involuntary Admission: Yes 96 Hour Hold Ending Date: 11/27/22 96 Hour Hold Ending Time: 00:01 Attestations NPU Medical Necessity Statement*: Inpatient hospitalization is medically necessary and the clinically appropriate intervention at this time. We will initiate medications and make changes as indicated. The patient's likely length of stay is 2-3 days. Coding Level of Care Code Acute Code for Chg Fwd Diagnoses Acute psychosis F23 Bipolar disorder, current episode mixed, severe, without psychotic features F31.63 Nicotine dependence due to vaping tobacco product F17.290 Marijuana use, episodic F12.90 Generalized anxiety disorder F41.1 Post-traumatic stress disorder, chronic F43.12
[2022-12-19] MEDS: OLANZapine 5 mg ODT PO ×2 (11:16→20:58)
[2022-12-19 13:35] VITALS: BP 131/84; PULSE 106; RESP 16; TEMP 36.9; O2SAT 99
[2022-12-19 20:05] VITALS: BP 122/85; PULSE 114; RESP 18; TEMP 37.2; O2SAT 98
[2022-12-19] MEDS: quetiapine XR (24HR) 300 mg Tablet PO (20:17)
[2022-12-19] MEDS: quetiapine XR (24HR) 50 mg Tablet 200 MG PO (20:17)
[2022-12-20 06:00] VITALS: RESP 16
[2022-12-20] MEDS: hyDROXYzine 25 mg Capsule 50 MG PO ×2 (07:35→15:27)
--- NOTE | 2022-12-20 08:33 | PC.NURSE ---
During assessment, patient stated that she is feeling anxious and that she feels anxious all day. Patient stated that klonopin was helping but that it has been put on hold. Patient denies SI, HI, and AVH.
[2022-12-20] MEDS: lithium carbonate 300 mg Capsule 600 MG PO ×2 (09:21→17:07)
[2022-12-20] MEDS: loratadine 10 mg Tablet PO (09:21)
[2022-12-20] MEDS: paliperidone ER 3 mg Tablet PO (09:22)
[2022-12-20] MEDS: nicotine 21 mg Patch 1 PATCH TRANSDERMA (09:22)
[2022-12-20] MEDS: fluticasone nasal spray 16gm Btl 2 SPRAY NASAL ×2 (09:22→17:09)
[2022-12-20] MEDS: OLANZapine 5 mg ODT PO (11:43)
--- NOTE | 2022-12-20 11:44 | PC.NURSE ---
Patient requesting anxiety medication for the second time. This nurse administered Zyprexa 5mg ODT to patient. Patient rates anxiety 11/19. When asked about the cause of her anxiety, patient stated that she is anxious all day long because of her thoughts. Patient says that she has been trying to cope, but unsuccessful.
--- NOTE | 2022-12-20 13:53 | P.NPUPN_ITS ---
Subjective NPU Subjective: Patient presented today reporting that she is doing okay. She seemed less focused on the idea of going [place] [facility] [place] doing any [employer] tour in [place]. She continues to have slow but steady improvement and we discussed indications from family that were baseline. She reports that she is having no side effects from the medication and we reported a plan to likely get a lithium level prior to her leaving. We discussed discharge in the next 48 hours. Mental Status Exam MSE Comments: This is an obese white female in hospital scrubs with blue hair with improved grooming and fair eye contact who was friendly and cooperative on interview today. There was no psychomotor slowing appreciated. There was no noted tremor appreciated. She was cooperative with exam in mild distress. Speech showed increased spontaneity with normal volume and rhythm. Mood described as better. Her affect was less restricted. Thought process appeared circumstantial. Thought content: Patient denied suicidal or homicidal ideation with no overt somatic delusions noted. There was evidence of some overvalued ideas. Attention and concentration appeared poor. She is alert and oriented times person and place. Insight is limited. Her judgment appeared limited. Her impulse control appeared to be improving. Vitals/I&O/Wt Last Vital Signs Temp 99.0 F 12/19/22 20:05 Pulse 114 H 12/19/22 20:05 Resp 16 12/20/22 06:00 BP 122/85 12/19/22 20:05 Pulse Ox 98 12/19/22 20:05 O2 Del Method Room Air 12/19/22 20:05 Weight last 48 hrs Weight 89.925 kg Data NPU 11/22/22 21:39 12/15/22 08:36 A&P Assessment and plan (1) Acute psychosis: (2) Bipolar disorder, current episode mixed, severe, without psychotic features: (3) Nicotine dependence due to vaping tobacco product: (4) Marijuana use, episodic: (5) Generalized anxiety disorder: (6) Post-traumatic stress disorder, chronic: Plan This is a 27-year-old female who has a long history of psychosis with a previous hospitalization on the neuropsychiatric unit for psychotic illness who returns on a 96-hour hold with an acute psychotic episode. Plan: 1.? Continue current medications. Continue Invega 3 mg p.o. daily and consider restarting previous medications that were assisting with her outpatient functionality after last hospitalization. Invega Sustenna 234 mg IM to the deltoid for loading dose started 11/28/2022. Given second loading dose of Invega Sustenna 156 mg IM to the deltoid 12/06/2022. Next injection Invega Sustenna 156 mg IM will be due 01/01/2023. Increase Seroquel xr 500mg tonight, Will hold klonopin at night. Continue [place] to 600mg bid. Recheck lithium level tomorrow. 2.? Continue every 15 minute checks for safety. 3.? Encourage individual, group and milieu therapies. 4.? Encourage sober living treatment after discharge at the highest level of care to which she is willing to commit. 5. Submitted 21-day hold paperwork to the courts. Patient placed on a 21-day hold, 12/01/2022. 6. 21-day hold ends 12/22/2022 likely discharge tomorrow. Involuntary Hold Information 96 Hour Hold: 96 Hour Involuntary Admission: Yes 96 Hour Hold Ending Date: 11/27/22 96 Hour Hold Ending Time: 00:01 Attestations NPU Medical Necessity Statement*: Inpatient hospitalization is medically necessary and the clinically appropriate intervention at this time. We will initiate medications and make changes as indicated. The patient's likely length of stay is 1-2 days. Coding Level of Care Code Acute Code for [facility] Fwd Diagnoses Acute psychosis F23 Bipolar disorder, current episode mixed, severe, without psychotic features F31.63 Nicotine dependence due to vaping tobacco product F17.290 Marijuana use, episodic F12.90 Generalized anxiety disorder F41.1 Post-traumatic stress disorder, chronic F43.12
[2022-12-20 14:00] VITALS: BP 127/85; PULSE 114; RESP 16; TEMP 36.6; O2SAT 98
--- NOTE | 2022-12-20 15:28 | PC.NURSE ---
Patient reports anxiety 10/19. Patient given vistaril 50mg PO
[2022-12-20] MEDS: acetaminophen 325 mg Tablet 650 MG PO (17:07)
[2022-12-20 20:08] VITALS: BP 140/93; PULSE 108; RESP 18; TEMP 36.9; O2SAT 98
[2022-12-20] MEDS: CLONazepam 0.5 mg Tablet PO (20:21)
[2022-12-20] MEDS: quetiapine XR (24HR) 300 mg Tablet PO (20:21)
[2022-12-20] MEDS: quetiapine XR (24HR) 50 mg Tablet 200 MG PO (20:22)
[2022-12-20] MEDS: trazodone 50 mg Tablet PO (21:14)
[2022-12-21] MEDS: hyDROXYzine 25 mg Capsule 50 MG PO ×3 (05:01→20:10)
[2022-12-21 05:57] VITALS: BP 116/77; PULSE 105; RESP 16; TEMP 36.6; O2SAT 99
[2022-12-21] MEDS: paliperidone ER 3 mg Tablet PO (07:31)
[2022-12-21] MEDS: fluticasone nasal spray 16gm Btl 2 SPRAY NASAL ×2 (07:31→17:15)
[2022-12-21] MEDS: OLANZapine 5 mg ODT PO ×2 (07:31→17:13)
[2022-12-21] MEDS: lithium carbonate 300 mg Capsule 600 MG PO ×2 (07:31→17:15)
[2022-12-21] MEDS: nicotine 21 mg Patch 1 PATCH TRANSDERMA (09:40)
--- NOTE | 2022-12-21 11:43 | P.NPUPN_ITS ---
Subjective NPU Subjective: Patient presented today reporting that she is doing okay. We discussed discharge to the people that will help her get the flight to [place] but she was still mulling the idea of going to [facility] or doing any [employer] tour in [place]. She continues to have slow but steady improvement. She reports that she is having no side effects from the medication and we reported a plan to get a lithium level in the morning. Mental Status Exam MSE Comments: This is an obese white female in hospital scrubs with blue hair with improved grooming and fair eye contact who was friendly and cooperative on interview today. There was no psychomotor slowing appreciated. There was no noted tremor appreciated. She was cooperative with exam in mild distress. Speech showed increased spontaneity with normal volume and rhythm. Mood described as better. Her affect was less restricted. Thought process appeared circumstantial. Thought content: Patient denied suicidal or homicidal ideation with no overt somatic delusions noted. There was evidence of some overvalued ideas. Attention and concentration appeared poor. She is alert and oriented times person and place. Insight is limited. Her judgment appeared limited. Her impulse control appeared to be improving. Vitals/I&O/Wt Last Vital Signs Temp 97.9 F 12/21/22 05:57 Pulse 105 H 12/21/22 05:57 Resp 16 12/21/22 05:57 BP 116/77 12/21/22 05:57 Pulse Ox 99 12/21/22 05:57 O2 Del Method Room Air 12/20/22 20:08 12/20/22 12/21/22 12/21/22 22:59 06:59 14:59 Intake Total 0 / 0 Balance 0 / 0 Weight last 48 hrs Weight 89.925 kg Data NPU 11/22/22 21:39 12/15/22 08:36 A&P Assessment and plan (1) Acute psychosis: (2) Bipolar disorder, current episode mixed, severe, without psychotic features: (3) Nicotine dependence due to vaping tobacco product: (4) Marijuana use, episodic: (5) Generalized anxiety disorder: (6) Post-traumatic stress disorder, chronic: Plan This is a 27-year-old female who has a long history of psychosis with a previous hospitalization on the neuropsychiatric unit for psychotic illness wh o returns on a 96-hour hold with an acute psychotic episode. Plan: 1.? Continue current medications. Continue Invega 3 mg p.o. daily and consider restarting previous medications that were assisting with her outpatient functionality after last hospitalization. Invega Sustenna 234 mg IM to the de ltoid for loading dose started 11/28/2022. Given second loading dose of Invega Sustenna 156 mg IM to the deltoid 12/06/2022. Next injection Invega Sustenna 156 mg IM will be due 01/01/2023. Increase Seroquel xr 500mg tonight, Will hold klonopin at night. Continue [place] to 600mg bid. Recheck lithium level tomorrow. 2.? Continue every 15 minute checks for safety. 3.? Encourage individual, group and milieu therapies. 4.? Encourage sober living treatment after discharge at the highest level of care to which she is willing to commit. 5. Submitted 21-day hold paperwork to the courts. Patient placed on a 21-day hold, 12/01/2022. 6. 21-day hold ends 12/22/2022 likely discharge tomorrow. Involuntary Hold Information 96 Hour Hold: 96 Hour Involuntary Admission: Yes 96 Hour Hold Ending Date: 11/27/22 96 Hour Hold Ending Time: 00:01 Attestations NPU Medical Necessity Statement*: Inpatient hospitalization is medically necessary and the clinically appropriate intervention at this time. We will initiate medications and make changes as indicated. The patient's likely length of stay is 1-2 days. Coding Level of Care Code Acute Code for g Fwd Diagnoses Acute psychosis F23 Bipolar disorder, current episode mixed, severe, without psychotic features F31.63 Nicotine dependence due to vaping tobacco product F17.290 Marijuana use, episodic F12.90 Generalized anxiety disorder F41.1 Post-traumatic stress disorder, chronic F43.12
[2022-12-21 13:15] VITALS: BP 122/85; PULSE 111; RESP 16; TEMP 37.1; O2SAT 97
[2022-12-21] MEDS: quetiapine XR (24HR) 300 mg Tablet PO (20:10)
[2022-12-21] MEDS: trazodone 50 mg Tablet PO (20:10)
[2022-12-21] MEDS: CLONazepam 0.5 mg Tablet PO (20:10)
[2022-12-21] MEDS: quetiapine XR (24HR) 50 mg Tablet 200 MG PO (20:10)
[2022-12-21 20:27] VITALS: BP 124/79; PULSE 114; RESP 20; O2SAT 95
[2022-12-22] MEDS: hyDROXYzine 25 mg Capsule 50 MG PO ×3 (03:35→16:21)
[2022-12-22 06:00] VITALS: BP 119/84; PULSE 111; RESP 18; TEMP 36.4; O2SAT 98
[2022-12-22] MEDS: paliperidone ER 3 mg Tablet PO (08:38)
[2022-12-22] MEDS: acetaminophen 325 mg Tablet 650 MG PO ×2 (08:38→20:27)
[2022-12-22] MEDS: fluticasone nasal spray 16gm Btl 2 SPRAY NASAL ×2 (08:39→18:11)
[2022-12-22] MEDS: loratadine 10 mg Tablet PO (08:43)
[2022-12-22 09:56] LABS: Lithium 0.3 mmol/L (0.6-1.2)
[2022-12-22] MEDS: lithium carbonate 300 mg Capsule 600 MG PO ×2 (10:48→18:11)
[2022-12-22] MEDS: OLANZapine 5 mg ODT PO ×2 (13:07→20:27)
[2022-12-22 13:26] VITALS: BP 126/86; PULSE 105; RESP 17; TEMP 37.1; O2SAT 98
[2022-12-22] MEDS: nicotine 4 mg lozenge MUCOUS MEM ×2 (13:40→16:22)
--- NOTE | 2022-12-22 15:13 | P.NPUPN_ITS ---
Subjective NPU Subjective: Patient presented today reporting that she is improving. Staff reports and evaluation suggest that she is having very slow but clear improvement. She agreed to sign in voluntarily today with a plan of discharging on with her community support planning on flying with her to [place] on Wednesday. Patient being more consistent with the plan to return immediately to her family in [place] at discharge. Mental Status Exam MSE Comments: This is an obese white female in hospital scrubs with blue hair with improved grooming and fair eye contact who was friendly and cooperative on interview tojeanette burciaga. There was no psychomotor slowing appreciated. There was no noted tremor appreciated. She was cooperative with exam in mild distress. Speech showed increased spontaneity with normal volume and rhythm. Mood described as better. Her affect was less restricted. Thought process appeared circumstantial. Thought content: Patient denied suicidal or homicidal ideation with no overt somatic delusions noted. There was evidence of some overvalued ideas. Attention and concentration appeared poor. She is alert and oriented times person and place. Insight is limited. Her judgment appeared limited. Her impulse control appeared to be improving. Vitals/I&O/Wt Last Vital Signs Temp 98.3 F 12/22/22 22:00 Pulse 106 H 12/22/22 22:00 Resp 18 12/22/22 22:00 BP 122/84 12/22/22 22:00 Pulse Ox 98 12/22/22 22:00 O2 Del Method Room Air 12/22/22 22:00 Data NPU 11/22/22 21:39 12/15/22 08:36 A&P Assessment and plan (1) Acute psychosis: (2) Bipolar disorder, current episode mixed, severe, without psychotic features: (3) Nicotine dependence due to vaping tobacco product: (4) Marijuana use, episodic: (5) Generalized anxiety disorder: (6) Post-traumatic stress disorder, chronic: Plan This is a 27-year-old female who has a long history of psychosis with a previous hospitalization on the neuropsychiatric unit for psychotic illness who returns on a 96-hour hold with an acute psychotic episode. Plan: 1.? Continue current medications. Continue Invega 3 mg p.o. daily and consider restarting previous medications that were assisting with her outpatient functionality after last hospitalization. Invega Sustenna 234 mg IM to the deltoid for loading dose started 11/28/2022. Given second loading dose of Invega Sustenna 156 mg IM to the deltoid 12/06/2022. Next injection Invega Sustenna 156 mg IM will be due 01/01/2023. Increase Seroquel xr 500mg tonight, Will hold klonopin at night. Continue Ider to 600mg bid. Rechecked lithium level this morning 12/22/2022. Discontinue oral Invega. 2.? Continue every 15 minute checks for safety. 3.? Encourage individual, group and milieu therapies. 4.? Encourage sober living treatment after discharge at the highest level of c are to which she is willing to commit. 5. Submitted 21-day hold paperwork to the courts. Patient placed on a 21-day hold, 12/01/2022. 6. 21-day hold ends today. Patient signed in with plan for discharge on for her Wednesday flight to [place] with assistance from a community member planning on flying with her and helping her get on the plane at her layover before returning back to the area.. Involuntary Hold Information 96 Hour Hold: 96 Hour Involuntary Admission: Yes 96 Hour Hold Ending Date: 11/27/22 96 Hour Hold Ending Time: 00:01 Attestations NPU Medical Necessity Statement*: Inpatient hospitalization is medically necessary and the clinically appropriate intervention at this time. We will initiate medications and make changes as indicated. The patient's likely length of stay is 2 days. Coding Level of Care Code Acute Code for Chg Fwd Diagnoses Acute psychosis F23 Bipolar disorder, current episode mixed, severe, without psychotic features F31.63 Nicotine dependence due to vaping tobacco product F17.290 Marijuana use, episodic F12.90 Generalized anxiety disorder F41.1 Post-traumatic stress disorder, chronic F43.12
[2022-12-22] MEDS: trazodone 50 mg Tablet PO (20:27)
[2022-12-22] MEDS: quetiapine XR (24HR) 300 mg Tablet PO (20:27)
[2022-12-22] MEDS: CLONazepam 0.5 mg Tablet PO (20:28)
[2022-12-22] MEDS: quetiapine XR (24HR) 50 mg Tablet 200 MG PO (20:28)
[2022-12-22 22:00] VITALS: BP 122/84; PULSE 106; RESP 18; TEMP 36.8; O2SAT 98
[2022-12-23] MEDS: trazodone 50 mg Tablet PO ×2 (01:57→20:59)
[2022-12-23 06:00] VITALS: BP 126/87; PULSE 101; RESP 16; TEMP 36.9; O2SAT 96
[2022-12-23] MEDS: fluticasone nasal spray 16gm Btl 2 SPRAY NASAL ×2 (08:20→20:10)
[2022-12-23] MEDS: lithium carbonate 300 mg Capsule 600 MG PO ×2 (08:21→20:10)
--- NOTE | 2022-12-23 08:21 | PC.NURSE ---
refused scheduled Miralax
[2022-12-23] MEDS: acetaminophen 325 mg Tablet 650 MG PO (08:44)
[2022-12-23] MEDS: nicotine 21 mg Patch 1 PATCH TRANSDERMA (08:44)
[2022-12-23] MEDS: hyDROXYzine 25 mg Capsule 50 MG PO (09:34)
--- NOTE | 2022-12-23 09:34 | PC.NURSE ---
PRN VISTARIL 50 MG GIVEN PO PER PT C/O STATED ANXIETY
[2022-12-23 14:00] VITALS: BP 125/84; PULSE 105; RESP 17; TEMP 36.9; O2SAT 98
--- NOTE | 2022-12-23 16:43 | P.NPUPN_ITS ---
Subjective NPU Subjective: Patient presented today reporting and staff reporting she is improving. She reports excitement about discharging tomorrow with her community support planning on flying with her to [place] on Wednesday. Patient being more consistent with the plan to return immediately to her family in [place] at discharge. Mental Status Exam MSE Comments: This is an obese white female in hospital scrubs with blue hair with improved grooming and fair eye contact who was friendly and cooperative on interview today. There was no psychomotor slowing appreciated. There was no noted tremor appreciated. She was cooperative with exam in mild distress. Speech showed increased spontaneity with normal volume and rhythm. Mood described as better. Her affect was less restricted. Thought process appeared circumstantial. Thought content: Patient denied suicidal or homicidal ideation with no overt somatic delusions noted. There was evidence of some overvalued ideas. Attention and concentration appeared poor. She is alert and oriented times person and place. Insight is limited. Her judgment appeared limited. Her impulse control appeared to be improving. Vitals/I&O/Wt Last Vital Signs Temp 98.4 F 12/23/22 06:00 Pulse 101 H 12/23/22 06:00 Resp 16 12/23/22 06:00 BP 126/87 12/23/22 06:00 Pulse Ox 96 12/23/22 06:00 O2 Del Method Room Air 12/23/22 06:00 Data NPU 11/22/22 21:39 12/15/22 08:36 A&P Assessment and plan (1) Acute psychosis: (2) Bipolar disorder, current episode mixed, severe, without psychotic features: (3) Nicotine dependence due to vaping tobacco product: (4) Marijuana use, episodic: (5) Generalized anxiety disorder: (6) Post-traumatic stress disorder, chronic: Plan This is a 27-year-old female who has a long history of psychosis with a previous hospitalization on the neuropsychiatric unit for psychotic illness who returns on a 96-hour hold with an acute psychotic episode. Plan: 1.? Continue current medications. Continue Invega 3 mg p.o. daily and consider restarting previous medications that were assisting with her outpatient functionality after last hospitalization. Invega Sustenna 234 mg IM to the deltoid for loading dose started 11/28/2022. Given second loading dose of Invega Sustenna 156 mg IM to the deltoid 12/06/2022. Next injection Invega Sustenna 156 mg IM will be due 01/01/2023. Increase Seroquel xr 500mg tonight, Will hold klonopin at night. Continue Toccopola to 600mg bid. Rechecked lithium level 12/22/22. Discontinue oral Invega. add Prazosin 1 mg po qhs for nightmares. 2.? Continue every 15 minute checks for safety. 3.? Encourage individual, group and milieu therapies. 4.? Encourage sober living treatment after discharge at the highest level of care to which she is willing to commit. 5. Submitted 21-day hold paperwork to the courts. Patient placed on a 21-day hold, 12/01/2022. 6. 21-day hold ends today. Patient signed in with plan for discharge on for her Wednesday flight to [place] with assistance from a community member planning on flying with her and helping her get on the plane at her layover before returning back to the area. Discharge tomorrow 12/24/22. Involuntary Hold Information 96 Hour Hold: 96 Hour Involuntary Admission: Yes 96 Hour Hold Ending Date: 11/27/22 96 Hour Hold Ending Time: 00:01 Attestations NPU Medical Necessity Statement*: Inpatient hospitalization is medically necessary and the clinically appropriate intervention at this time. We will initiate medications and make changes as indicated. The patient's likely length of stay is 1 day. Coding Level of Care Code Acute Code for g Fwd Diagnoses Acute psychosis F23 Bipolar disorder, current episode mixed, severe, without psychotic features F31.63 Nicotine dependence due to vaping tobacco product F17.290 Marijuana use, episodic F12.90 Generalized anxiety disorder F41.1 Post-traumatic stress disorder, chronic F43.12
[2022-12-23 19:38] VITALS: BP 139/88; PULSE 116; RESP 18; TEMP 37.1; O2SAT 98
[2022-12-23] MEDS: CLONazepam 0.5 mg Tablet PO (20:10)
[2022-12-23] MEDS: quetiapine XR (24HR) 50 mg Tablet 200 MG PO (20:11)
[2022-12-23] MEDS: quetiapine XR (24HR) 300 mg Tablet PO (20:11)
[2022-12-23] MEDS: prazosin 1 mg Capsule PO (20:11)
[2022-12-24 06:00] VITALS: BP 116/82; PULSE 88; RESP 20; TEMP 36.4; O2SAT 99
[2022-12-24] MEDS: acetaminophen 325 mg Tablet 650 MG PO (06:46)
[2022-12-24] MEDS: lithium carbonate 300 mg Capsule 600 MG PO (09:12)
[2022-12-24] MEDS: nicotine 21 mg Patch 1 PATCH TRANSDERMA (09:12)
[2022-12-24] MEDS: fluticasone nasal spray 16gm Btl 2 SPRAY NASAL (09:13)
[2022-12-24] MEDS: hyDROXYzine 25 mg Capsule 50 MG PO (09:17)
[2022-12-24 09:41] VITALS: BP 116/82; PULSE 88; RESP 20; TEMP 36.4; O2SAT 99
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
== END 2022-12-24 11:44 | disposition home or self-care (01) | DRG 885 ==
LOC: ER 11-23 07:25 → NP 11-23 15:26
PROVIDERS: Admitting Provider Psychiatry & Neurology Psychiatry; Emergency Provider Emergency Medicine; PCP Family Medicine; Visit Provider Psychiatry & Neurology Psychiatry
DX: F31.64 Bipolar disorder, current episode mixed, severe, with psychotic features (principal); F12.10 Cannabis abuse, uncomplicated; F41.1 Generalized anxiety disorder; F17.290 Nicotine dependence, other tobacco product, uncomplicated; F43.10 Post-traumatic stress disorder, unspecified; E66.9 Obesity, unspecified; Z68.37 Body mass index [BMI] 37.0-37.9, adult
CPT/HCPCS: 36415; 36416; 80048; 80053; 80178; 80306; 80307; 81001; 81003; 82962; 85025; 96372; 97150; 97165; 97167; 99238; 99285; J0696; J1200; J1630; J2060; Q0162